=== PATIENT | male | born 1960 | race Caucasian/White ===

== ENCOUNTER 2018-12-24 08:56 | Inpatient (IN) ==
--- NOTE | 2018-11-28 08:37 | Anesthesiology Consultation ---
Date of Service November 28, 2018 Assessment & Plan (1) Encounter for pre-operative examination: Chart Review Chart Review: Acceptable Risk for Surgery and Patient seen in Pre Admission Testing Teaching & Discussion Instructed NPO after midnight before surgery, except medications with 15 cc of water. Medication instructions provided according to the PAT guidelines. History Surgery Operation Date: 12/23/18 07:45 Proposed Procedures p L5-S1 Removal of Hardware, L4-L5 Decompression and Fusion - Cyril Giles, Height/Weight Height: 6 ft Weight: 86.4 kg Allergies Allergy/AdvReac Type Severity Reaction Status Date / Time morphine Allergy Intermediate tachycardia, Verified 11/27/18 14:22 htn carbamazepine Allergy Mild unsure Verified 11/27/18 14:22 levofloxacin Allergy Mild torn Verified 11/27/18 14:22 ligament and tendon Penicillins Allergy Mild Hives Verified 11/27/18 14:22 Medications Home Medications Medication Instructions Recorded Confirmed Last Taken clonazepam 1 mg PO DAILY PRN 11/27/18 11/27/18 Unknown fexofenadine [Caty Allergy] 180 mg PO HS 11/27/18 11/27/18 Unknown gabapentin 300 mg PO TID 11/27/18 11/27/18 Unknown metformin 500 mg PO BID 11/27/18 11/27/18 Unknown simvastatin 40 mg PO PM 11/27/18 11/27/18 Unknown Past Medical History Medical History Chronic back pain Hyperlipidemia Prediabetes A1C 5.9% Past Surgical History Surgical History Fusion of spine fusion of lumbar l5-s1 History of discectomy lumbar Hx of repair of right rotator cuff Past Anesthesia History No Hx of Anesthesia Complications and No Family Hx of Anesthesia Complications History of PONV No Motion Sickness Screening History of Motion Sickness: No Social History Smoking Status: Never smoker Do You Dip or Chew Tobacco: No Hx Alcohol Use: Yes Alcohol type: beer, wine and hard liquor alcohol intake frequency: a few times a week Hx Substance Use: No substance use type: does not use Exercise / Class Metabolic Activity 1 > 8 Run/Swim/Ski/Tennis (Somewhat limited by back pain but does exercise regularly) Review of Systems Pt denies any recent chest pain, shortness of breath, palpitations, cough, fever or URI. Physical Exam Vital Signs BP: 149/93 (PCP has been monitoring) P: 76bpm SPO2: 97% RA T: 98.6 F R: 16 ENMT Mouth: + dental restorations (few crowns on molars); no chipped teeth and no loose teeth Thyromental Distance: > or= 3.5 Finger Breadths (4) Mallampati Class: I Neck normal visual inspection and + facial hair (short trimmed); neck extension not limited Respiratory normal respiratory effort Auscultation: lungs clear to auscultation bilaterally Cardiovascular Rate/Rhythm: regular rate and regular rhythm Heart Sounds: no murmur Vessels: no carotid bruit Extremities: no edema Testing Electrocardiogram Date: 11/28/18 Findings: + NSR @ (70) Rightward axis. No change from 2009 EKG. Chest X-Ray Date: 11/28/18 Findings: + NAD Laboratory Results 11/28/18 09:14 11/28/18 09:14 Blood Type O Positive 11/28/18 09:14 Antibody Screen NEGATIVE 11/28/18 09:14 PT 10.1 Seconds (9.0-12.0) 11/28/18 09:14 INR 1.0 (0.9-1.1) 11/28/18 09:14 APTT 25.4 Seconds (21.0-31.0) 11/28/18 09:14 Hemoglobin A1c 5.9 % (4.5-5.6) H 11/28/18 09:14 Urine Color Yellow 11/28/18 09:14 Urine Appearance Clear (Clear) 11/28/18 09:14 Urine pH 5.5 (4.5-7.5) 11/28/18 09:14 Ur Specific [place] 1.022 (1.000-1.030) 11/28/18 09:14 Urine Protein Negative (Negative) 11/28/18 09:14 Urine Glucose (UA) Negative (Negative) 11/28/18 09:14 Urine Ketones Negative (Negative) 11/28/18 09:14 Urine Nitrite Negative (Negative) 11/28/18 09:14 Ur Leukocyte Esterase Negative (Negative) 11/28/18 09:14
--- NOTE | 2018-11-28 08:39 | PAT Medication Instructions ---
Medication Instructions Date of Service November 28, 2018 Home Medications clonazepam 1 mg PO DAILY PRN fexofenadine [Caty Allergy] 180 mg PO HS gabapentin 300 mg PO TID metformin 500 mg PO BID simvastatin 40 mg PO PM DO NOT take the morning of surgery metformin 500 mg PO BID Take morning of surgery With a small sip of water, OTHERWISE NOTHING TO EAT OR DRINK AFTER MIDNIGHT: clonazepam 1 mg PO DAILY PRN (if needed) gabapentin 300 mg PO TID Take evening before surgery clonazepam 1 mg PO DAILY PRN (if needed) fexofenadine [Caty Allergy] 180 mg PO HS gabapentin 300 mg PO TID metformin 500 mg PO BID simvastatin 40 mg PO PM Other Notes If you have any questions please call us at [phone] or [phone] or [phone] or [phone]
--- NOTE | 2018-11-28 09:45 | XRay Report ---
XR chest Pre-admission PA/Lat CLINICAL HISTORY: 58 years-old Male presenting with preoperative assessment, asymptomatic. TECHNIQUE: PA and lateral views of the chest were obtained. COMPARISON: CT from 2009. FINDINGS: Cardiomediastinal silhouette normal. Lungs and pleural spaces clear. Chronic right AC joint widening. Upper abdomen normal. IMPRESSION: 1. No acute cardiopulmonary disease. Electronically signed by: Farhad Hilton M.D. 11/28/2018 9:44 AM
[2018-11-28 10:44] LABS: Appearance Urine Clear (Clear); Bilirubin Urine Negative (Negative); Blood Urine Negative (Negative); Color Urine Yellow; Glucose Urine UA Negative (Negative); Ketones Urine Negative (Negative); Leukocyte Esterase Urine Negative (Negative); Nitrite Urine Negative (Negative); Protein Urine Negative (Negative); Specific Gravity Urine 1.022 (1.000-1.030); Urobilinogen Urine Negative (Negative); pH Urine 5.5 (4.5-7.5)
[2018-11-28 10:46] LABS: BUN Creatinine Ratio 16.8 (10-20); Calcium 9.5 mg/dl (8.5-10.1); Creatinine Clr Calc Pharmacy 76.2 ml/min; Potassium 4.1 mmol/L (3.5-5.1)
[2018-11-28 10:50] LABS: Partial Thromboplastin Ratio 0.9; Partial Thromboplastin Time 25.4 Seconds (21.0-31.0); Prothrombin Time 10.1 Seconds (9.0-12.0)
[2018-11-28 10:53] LABS: Basophils # (auto) 0.03 K/uL (0-0.2); Basophils % (auto) 0.6 %; Hemoglobin 16.1 g/dL (14.0-18.0); Immature Granulocytes # (auto) 0.02 K/uL (0.00-0.02); Immature Granulocytes % (auto) 0.4 %; Lymphocytes % (auto) 40.2 %; Mean Corpuscular Hgb Conc 33.5 g/dL (32-36); Mean Platelet Volume 9.7 fL (7.4-10.4); Monocytes # (auto) 0.45 K/uL (0.11-0.59); Neutrophils # (auto) 2.28 K/uL (1.4-6.5); Neutrophils % (auto) 45.8 %; Platelet Count 211 K/uL (130-400); RDW Coefficient of Variation 13.2 % (11.5-14.5); RDW Standard Deviation 44.7 fL (36.4-46.3); Red Blood Count 5.16 M/uL (4.7-6.1); White Blood Count 4.98 K/uL (4.8-10.8)
[2018-11-28 11:16] LABS: Estimated Average Glucose 123 mg/dl; Hemoglobin A1C 5.9 % (4.5-5.6)
[~2018-12-24 08:56] MED LIST: ACETAMINOPHEN 500 MG TAB PO SCH; CLINDAMYCIN 600 MG/54 ML BAG IV SCH; CeleBREX 200 MG CAP PO SCH; GABAPENTIN 300 MG x 2 PO SCH; LR 15ML/HR IV SCH
--- OUTSIDE RECORDS SUMMARY | 2018-12-24 09:01 | External Medical Summary | Continuity of Care Document ---
:1960 Author Name Elvin Prajapati, Provider Address Unavailable Unavailable , Care Team Providers Name Role Phone Unruly Laboy M.D. 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 Start: 04-Dec-2019 9:00 Re quest Planned Observations Planned Goals not documented Results No Known Results Results not documented Encounters Appointment; Unruly Laboy M.D. 02-Dec-2018 11:10 Encounter Diagnosis: Problem not documented Appointment; Bradford Kemp M.D. 23-Jan-2017 14:30 Encounter Diagnosis: Problem not documented Appointment; Unruly Laboy M.D. 04-Dec-2019 9:00 Encounter Diagnosis: Problem not documented
[2018-12-24] MEDS ORDERED: CeleBREX 200 MG CAP ONE (09:31)
[2018-12-24] MEDS ORDERED: ACETAMINOPHEN 500 MG TAB ONE (09:32)
[2018-12-24] MEDS ORDERED: CLINDAMYCIN 600 MG/54 ML D5W IV ONE (09:32)
[2018-12-24] MEDS ORDERED: GABAPENTIN 300 MG CAP ONE (09:32)
[2018-12-24] MEDS ORDERED: fentaNYL citrate 100 MCG/2 ML VIAL ONE (13:42)
[2018-12-24] MEDS ORDERED: MIDAZOLAM HCL 1 MG/ML 2ML VIAL ONE (13:42)
--- NOTE | 2018-12-24 13:56 | History & Physical Bridge Note ---
Date of Service December 24, 2018 History & Physical Bridge Note I have examined the patient, reviewed the History & Physical and in the interval since the performance of the History & Physical I have noted the following changes of clinical significance: no changes noted
--- NOTE | 2018-12-24 13:57 | History & Physical Report ---
Date of Service December 24, 2018 Assessment & Plan (1) Spinal stenosis, lumbar region with neurogenic claudication: Removal of hardware L5-S1 L4-5 decompression and fusion Present on Admission?: Yes History of Present Illness Chief Complaint: Back and leg pain Primary Care Provider: Paco Sena MD This is a 58-year-old male well-known to me that presents with chronic persistent back and leg pain. After failing extensive course of nonoperative care he is here for surgical intervention. Allergies Allergy/AdvReac Type Severity Reaction Status Date / Time morphine Allergy Intermediate tachycardia, Verified 12/24/18 09:14 htn carbamazepine Allergy Mild unsure Verified 12/24/18 09:14 levofloxacin Allergy Mild torn Verified 12/24/18 09:14 ligament and tendon Penicillins Allergy Mild Hives Verified 12/24/18 09:14 Home Medications Home Medications Medication Instructions Recorded Confirmed Type clonazepam 1 mg PO DAILY PRN 11/27/18 12/24/18 History fexofenadine [Caty Allergy] 180 mg PO HS 11/27/18 12/24/18 History gabapentin 300 mg PO TID 11/27/18 12/24/18 History metformin 500 mg PO BID 11/27/18 12/24/18 History simvastatin 40 mg PO PM 11/27/18 12/24/18 History Past Med/Surg History Medical History Chronic back pain Hyperlipidemia Prediabetes A1C 5.9% Surgical History Fusion of spine fusion of lumbar l5-s1 History of discectomy lumbar Hx of repair of right rotator cuff Social History Preferred Language: [place] Communication Ability: Effective Exercise Teacher Required: No Beliefs That Will Affect Care: None Current Living Situation: Spouse Other Information That Helps Us Care for You: No Feels Safe at Home: Yes Safety Concerns: Feels Safe At This Time Smoking Status: Never smoker Do You Dip or Chew Tobacco: No Second Hand Exposure: No Tobacco Cessation Education Requested by Patient: No Hx Alcohol Use: Yes Alcohol type: beer, wine and hard liquor Hx Substance Use: No Physical Exam Vital Signs (Past 24 Hours): Last Vital Signs Temp 36.8 C 12/24/18 09:15 Pulse 84 12/24/18 09:15 Resp 18 12/24/18 09:15 BP 154/96 H 12/24/18 09:15 Pulse Ox 99 12/24/18 09:15 Physical Exam: Patient is neurologically intact though uncomfortable.
[2018-12-24] MEDS ORDERED: BACITRACIN INJ 50,000 UNIT VIAL ONE (14:08)
[2018-12-24] MEDS ORDERED: BUPIVACAINE/EPINEPHRINE 0.5% MPF 1:200,000 30 ML VIAL ONE (14:08)
[2018-12-24] MEDS ORDERED: SODIUM CHLORIDE 0.9% 500 ML BAG IV ONE (14:13)
[2018-12-24] MEDS ORDERED: ATROPINE SULFATE 0.1 MG/ML 10ML SYR IV PRN (14:20)
[2018-12-24] MEDS ORDERED: HYDROmorphone INJ 1 MG/ML SYRINGE IV PRN (14:20)
[2018-12-24] MEDS ORDERED: ONDANSETRON INJ 2 MG/ML 2 ML VIAL IV PRN ×2 (14:20→17:50)
[2018-12-24] MEDS ORDERED: HYDROmorphone INJ 2 MG/ML SYR/VIAL ONE (14:57)
[2018-12-24] MEDS ORDERED: ONDANSETRON INJ 2 MG/ML 2 ML VIAL ONE (15:00)
[2018-12-24] MEDS ORDERED: LARYING-O-JET KIT (LTA) ONE (15:00)
[2018-12-24] MEDS ORDERED: ROCURONIUM BROMIDE 10 MG/ML 5 ML VIAL ONE (15:00)
[2018-12-24] MEDS ORDERED: PROPOFOL IV EMULSION 10 MG/ML 20 ML VIAL IV ONE (15:00)
[2018-12-24] MEDS ORDERED: DEXAMETHASONE SOD INJ 4 MG/ML VIAL ONE (15:00)
[2018-12-24] MEDS ORDERED: PHENYLEPHRINE 100MCG/ML 5ML SYR ONE (15:00)
[2018-12-24] MEDS ORDERED: GLYCOPYRROLATE 0.2 MG/ML VIAL ONE (15:00)
[2018-12-24] MEDS ORDERED: NEOSTIGMINE METHYLSULFATE 1 MG/ML 10ML VIAL ONE (15:00)
[2018-12-24] MEDS ORDERED: LIDOCAINE HCL 2% 2 ML VIAL/AMP(20MG/ML) INFIL ONE (15:00)
[2018-12-24] MEDS ORDERED: FLOSEAL HEMOSTATIC MATRIX 10ML TOP ONE (15:29)
[2018-12-24] MEDS ORDERED: ePHEDrine sulfate 50 MG/ML SYR ONE (15:32)
--- NOTE | 2018-12-24 16:31 | Operative Report ---
Post Operative Report Pre & Post Diagnosis Operation Date: 12/24/18 10:45 Pre-Op Diagnosis: Lumbar spinal stenosis with neurogenic claudication Post-Op Diagnosis: Same Procedure Operation Date: 12/24/18 10:45 Actual Procedures #1 removal of posterior instrumentation L5-S1. #2 exploration of fusion L5-S1 per #3 lumbar decompression bilateral medial facetectomies foraminotomies L3-4 L4-5 per #4 posterior spinal fusion L4-5 per #5 placement posterior instrumentation L4-5 using globus rods and screws per #6 interbody fusion L4-5 per #7 placement of peek cage 13 x 26 mm L4-5 per #8 placement of local autograft in the posterior lateral gutters per #9 placement of infuse collagen sponge and master graft in the posterior lateral gutters and ostial amp in the interbody space. Surgeon Cyril Giles, Rn Transplant Chanda Garrido Estimated Blood Loss 150 Findings Consistent with Post-Op Diagnosis Specimens None Indications To the presents with worsening back and bilateral leg pain. After failing extensive course of nonoperative care like to undergo the above-mentioned procedure. Description of Procedure Patient was met with identified and informed consent obtained. He was then taken to the operative suite underwent ablation placed in prone position Kt table Teodoro frame. All bony prominences well-padded eyes inspected to ensure no external pressure placed upon the peer at this point the lumbar spine is prepped and draped in normal sterile fashion. Sharp dissection with the assistance of Bovie cautery was performed down to and exposing the lamina transverse processes of L4 and instrumentation at L5-S1 bilaterally. I then proceed remove the hardware bilaterally explore the fusion mass noting to be intact. An informed complete laminectomy of L4 partial laminectomy of L3 performed bilateral medial facetectomies and foraminotomies addressing severe stenosis. Pedicle screws were then placed in L4 and L5 bilaterally with assistance of fluoroscopy and by way of a transforaminal approach on the right complete discectomy was performed in pledget created to subcortical bleeding harman ne and a 13 x 26 mm peek cage filled with ostium bone graft tapped into position. The rods and then compressed locked into final position bilaterally. The transverse processes of L4 4 and L5 bur to subcortical bleeding bone. Infuse collagen sponge mass graft local autograft placed in the posterior lateral gutters. 15 round ANIL drain inserted. The incision was then closed with 1 Vicryl in the fascia 2-0 Vicryl subcutaneously and 4 Monocryl for final skin closure. Steri-Strip sterile dressings placed. Patient will continue to PACU stable disc. Please note Chanda Garrido present at the entire procedure involved in patient positioning complex portions of the surgery and final skin closure. Lastly spinal cord monitoring monitoring was utilized throughout the procedure and no changes were noted. I attest to the content of the Intraoperative Record and any orders documented therein. Any exceptions are noted below.
--- NOTE | 2018-12-24 16:45 | Fluoroscopy Report ---
FL lumbar spine 2-3V CLINICAL HISTORY: L5-S1 HARDWARE REMOVAL AND L4-L5 DECOMPRESSION AND FUSION COMPARISON STUDY: None. FLUOROSCOPY TIME: 7 seconds. FLUOROSCOPIC IMAGES: 2 FINDINGS: These images demonstrate an L4-L5 discectomy with interbody spacer placement. There is a po sterior decompression with bilateral pedicle screws at the L4 and L5 levels. A previous L5-S1 discect eva is noted. IMPRESSION: Fluoroscopic images demonstrating L4-L5 discectomy, posterior decompression and bilatera l pedicle screw fusion. Electronically signed by: Leander Thomas M.D. 12/24/2018 4:43 PM
--- NOTE | 2018-12-24 17:12 | Anesthesiology Progress Note ---
Date of Service December 24, 2018 Anesthesia Post Procedure Vital Signs Vital Signs: Temp Pulse Pulse Resp BP BP Pulse Ox 12/24/18 17:05 84 13 135/73 100 12/24/18 17:00 80 20 122/83 100 12/24/18 16:58 36.6 C 12/24/18 16:56 83 12 136/68 100 12/24/18 16:46 36.3 C L 92 H 14 131/65 100 12/24/18 16:45 84 13 131/65 100 12/24/18 09:15 36.8 C 84 18 154/96 H 99 Transfer of Care Handoff Completed per policy Notes Mental Status: alert / awake / arousable Patient Amnestic to Procedure: Yes Nausea / Vomiting: adequately controlled Pain: adequately controlled Airway Patency, RR, SpO2: stable & adequate BP & HR: stable & adequate Hydration State: stable & adequate Anesthetic Complications: no major complications apparent
[2018-12-24] MEDS ORDERED: FAMOTIDINE 20 MG TAB PO PRN (17:50)
[2018-12-24] MEDS ORDERED: LORazepam 0.5 MG/1 ML VIAL IV PRN (17:50)
[2018-12-24] MEDS ORDERED: TRAMADOL HCL 50 MG TABLET PO PRN (17:50)
[2018-12-24] MEDS ORDERED: DO NOT ADMINISTER FLU VACCINE PRN (17:50)
[2018-12-24] MEDS ORDERED: MAGNESIUM HYDROXIDE SUSP 30 ML UDC PO PRN (17:50)
[2018-12-24] MEDS ORDERED: PROMETHAZINE HCL 12.5 MG in SODIUM CHLORIDE 0.9% 50 ML IV PRN (17:50)
[2018-12-24] MEDS ORDERED: ONDANSETRON 4 MG TAB PO PRN (17:50)
[2018-12-24] MEDS ORDERED: ACETAMINOPHEN 1,000 MG/100 ML VIAL IV PRN (17:50)
[2018-12-24] MEDS ORDERED: BISACODYL 10 MG SUPP PR PRN (17:50)
[2018-12-24] MEDS ORDERED: METOCLOPRAMIDE HCL INJ 5 MG/ML 2 ML VIAL IV PRN (17:50)
[2018-12-24] MEDS ORDERED: DO NOT ADMINISTER PNEUMOCOCCAL VACCINE PRN (17:50)
[2018-12-24] MEDS ORDERED: LORazepam 0.5 MG TAB PO PRN (17:50)
[2018-12-24] MEDS ORDERED: ALUMINUM/MAGNESIUM SUSP 30 ML UDC PO PRN (17:50)
[2018-12-24] MEDS ORDERED: HYDROmorphone INJ 0.5 MG/0.5 ML SYR IV PRN (17:50)
[2018-12-24] MEDS ORDERED: SOD PHOSPHATE/SOD BIPHOSPHATE ENEMA 132 ML BTL PR PRN (17:50)
[2018-12-24] MEDS: KETOROLAC 30 MG/ML VIAL IV SCH ×2 (19:06→23:34)
[2018-12-24] MEDS: LACTATED RINGER'S 1,000 ML IV SCH (19:41)
[2018-12-24] MEDS: FEXOFENADINE HCL 180 MG TAB PO SCH (20:16)
[2018-12-24] MEDS: DOCUSATE SODIUM/SENNA 50/8.6MG TAB PO SCH (20:16)
[2018-12-24] MEDS: SIMVASTATIN 40 MG TAB PO SCH (20:16)
[2018-12-24] MEDS: GABAPENTIN 300 MG CAP PO SCH (20:16)
[2018-12-24] MEDS: CLINDAMYCIN 600 MG in DEXTROSE 5% 50 ML IV SCH (21:48)
[2018-12-25] MEDS: LACTATED RINGER'S 1,000 ML IV SCH (03:09)
[2018-12-25] MEDS: POLYETHYLENE (MIRALAX) 17 GM PACK PO SCH ×3 (05:36→17:29)
[2018-12-25] MEDS: KETOROLAC 30 MG/ML VIAL IV SCH ×2 (05:36→11:42)
[2018-12-25] MEDS: CLINDAMYCIN 600 MG in DEXTROSE 5% 50 ML IV SCH (05:37)
[2018-12-25 06:43] LABS: Basophils # (auto) 0.01 K/uL (0-0.2); Basophils % (auto) 0.1 %; Hematocrit (blood only) 38.4 % (42-52); Hemoglobin 13.3 g/dL (14.0-18.0); Immature Granulocytes # (auto) 0.04 K/uL (0.00-0.02); Immature Granulocytes % (auto) 0.3 %; Lymphocytes # (auto) 1.16 K/uL (1.2-3.4); Lymphocytes % (auto) 9.7 %; Mean Corpuscular Hgb Conc 34.6 g/dL (32-36); Mean Corpuscular Volume 88.7 fL (80-100); Mean Platelet Volume 9.3 fL (7.4-10.4); Monocytes # (auto) 1.16 K/uL (0.11-0.59); Monocytes % (auto) 9.7 %; Neutrophils # (auto) 9.62 K/uL (1.4-6.5); Neutrophils % (auto) 80.2 %; Platelet Count 188 K/uL (130-400); RDW Coefficient of Variation 12.9 % (11.5-14.5); RDW Standard Deviation 41.8 fL (36.4-46.3); Red Blood Count 4.33 M/uL (4.7-6.1); White Blood Count 11.99 K/uL (4.8-10.8)
[2018-12-25 07:07] LABS: BUN Creatinine Ratio 13.8 (10-20); Calcium 8.6 mg/dl (8.5-10.1); Creatinine Clr Calc Pharmacy 77.5 ml/min; Est GFR (African American) 81.7; Est GFR (Non-African American) 70.5
[2018-12-25] MEDS: GABAPENTIN 300 MG CAP PO SCH ×3 (08:52→21:19)
--- NOTE | 2018-12-25 09:45 | Anesthesiology Progress Note ---
Date of Service December 25, 2018 Anesthesia Post Procedure Vital Signs Vital Signs: Temp Pulse Pulse Pulse Resp BP BP 12/25/18 07:39 36.6 C 97 H 20 128/83 12/25/18 02:42 36.5 C 95 H 16 119/77 12/24/18 22:56 36.7 C 96 H 18 132/81 12/24/18 21:07 93 H 12/24/18 21:03 92 H 17 155/86 H 12/24/18 20:39 36.7 C 98 H 16 159/81 H 12/24/18 19:43 36.7 C 108 H 20 12/24/18 18:43 36.6 C 101 H 20 156/88 H 12/24/18 18:36 36.7 C 103 H 20 12/24/18 17:41 36.5 C 92 H 16 12/24/18 17:20 36.4 C L 89 17 138/64 12/24/18 17:16 75 15 135/71 12/24/18 17:10 73 14 122/85 12/24/18 17:05 84 13 135/73 12/24/18 17:00 80 20 122/83 12/24/18 16:58 36.6 C 12/24/18 16:56 83 12 136/68 12/24/18 16:46 36.3 C L 92 H 14 12/24/18 16:45 84 13 131/65 BP Pulse Ox 12/25/18 07:39 98 12/25/18 02:42 97 12/24/18 22:56 96 12/24/18 21:07 12/24/18 21:03 96 12/24/18 20:39 96 12/24/18 19:43 151/88 H 95 12/24/18 18:43 164/92 H 94 12/24/18 18:36 158/75 H 98 12/24/18 17:41 137/79 93 12/24/18 17:20 100 12/24/18 17:16 100 12/24/18 17:10 100 12/24/18 17:05 100 12/24/18 17:00 100 12/24/18 16:58 12/24/18 16:56 100 12/24/18 16:46 131/65 100 12/24/18 16:45 100 Pain Intensity Medial Back: Pain Intensity: 3 Notes Mental Status: alert / awake / arousable and participated in evaluation Patient Amnestic to Procedure: Yes Nausea / Vomiting: adequately controlled Pain: adequately controlled Airway Patency, RR, SpO2: stable & adequate BP & HR: stable & adequate Hydration State: stable & adequate Anesthetic Complications: no major complications apparent and Pt Satisfied with anesthetic care
--- NOTE | 2018-12-25 14:21 | Orthopedic Progress Note ---
Date of Service December 25, 2018 Assessment & Plan (1) Spinal stenosis, lumbar region with neurogenic claudication: This time we will continue physical therapy advance his bowel regimen anticipate discharge home in the next few days. Present on Admission?: Yes Subjective Back pain controlled leg symptoms markedly improved. Physical Exam Physical Exam: Patient is in the chair at the bedside. Is good strength testing. Results & Data Vital Signs (Past 12 Hours) Vital Signs Temp Pulse Pulse Resp BP Pulse Ox 12/25/18 13:30 100 12/25/18 10:39 36.8 C 84 20 135/79 100 12/25/18 07:39 36.6 C 97 H 20 128/83 98 12/25/18 02:42 36.5 C 95 H 16 119/77 97
[2018-12-25] MEDS: ACETAMINOPHEN 500 MG TAB PO PRN (19:31)
[2018-12-25] MEDS: SIMVASTATIN 40 MG TAB PO SCH (21:19)
[2018-12-25] MEDS: OXYCODONE HCL IR 5 MG TAB (IMMEDIATE RELEASE) PO PRN (21:19)
[2018-12-25] MEDS: DOCUSATE SODIUM/SENNA 50/8.6MG TAB PO SCH (21:19)
[2018-12-25] MEDS: FEXOFENADINE HCL 180 MG TAB PO SCH (21:20)
[2018-12-26] MEDS: OXYCODONE HCL IR 5 MG TAB (IMMEDIATE RELEASE) PO PRN ×3 (03:27→07:57)
[2018-12-26] MEDS: POLYETHYLENE (MIRALAX) 17 GM PACK PO SCH (03:52)
[2018-12-26] MEDS: GABAPENTIN 300 MG CAP PO SCH ×3 (07:58→20:04)
--- NOTE | 2018-12-26 08:22 | Orthopedic Progress Note ---
Date of Service December 26, 2018 Assessment & Plan (1) Spinal stenosis, lumbar region with neurogenic claudication: Plan to discharge home today. Present on Admission?: Yes Subjective Back pain is controlled leg symptoms markedly improved. Physical Exam Physical Exam: Patient is excellent strength testing appears comfortable. Results & Data Vital Signs (Past 12 Hours) Vital Signs Temp Pulse Pulse Resp BP Pulse Ox 12/26/18 07:31 36.8 C 90 20 136/76 98 12/25/18 23:00 36.6 C 69 19 147/75 H 97
--- NOTE | 2018-12-26 08:23 | Discharge Summary ---
Date of Service December 26, 2018 Admission HPI Per Admitting Provider This is a 58-year-old male well-known to me that presents with chronic persistent back and leg pain. After failing extensive course of nonoperative care he is here for surgical intervention. Principal Diagnosis Lumbar spinal stenosis Discharge Data Allergies Allergy/AdvReac Type Severity Reaction Status Date / Time morphine Allergy Intermediate tachycardia, Verified 12/24/18 09:14 htn carbamazepine Allergy Mild unsure Verified 12/24/18 09:14 levofloxacin Allergy Mild torn Verified 12/24/18 09:14 ligament and tendon Penicillins Allergy Mild Hives Verified 12/24/18 09:14 Consultations 12/24/18 17:50 Consult Case Management - Discharge Planning Routine Procedures Performed Operation Date: 12/24/18 10:45 Actual Procedures p L5-S1 Removal of Hardware, L4-L5 Decompression and Fusion, Spinal Cord Monitoring(Not Applicable) - Cyril Giles DO Ordered Studies 12/24/18 13:00 FL fluoroscopy <1hr Routine FL lumbar spine 2-3V Routine Hospital Course (1) Spinal stenosis, lumbar region with neurogenic claudication: Patient underwent lumbar depression fusion tolerated as well as taken to orthopedic for postoperative postop day 1 leg pain was markedly improved ambulate well. Progressive postop day #2. ANIL drain decreasing probably. Subsequent discharge home. Discharge orders and instructions can be found chart for further review. Total Time Total Time Spent Total Time Spent (In Minutes): 20 minutes Discharge Plan Discharge Items Patient Disposition: Home - Self-Care Reason For Visit: Lumbar Spine Pain Discharge Diagnosis: lumbar stenosis Discharge Goals: Improve function Activity: Per 'Additional Instructions' section Non-emergency contact: Primary Care Provider Call non-emergency contact if: you have any medication questions Follow-up/Referrals: Paco Sena MD [Primary Care Provider] - Diet: Regular Addtl Provider Instructions: ACTIVITY RECOMMENDATIONS: SELF CARE INSTRUCTIONS AFTER THORACIC/LUMBAR FUSIONS 1. You may walk to your tolerance. It is good exercise for your legs and back. Expect some back and intermittent leg aches and pains. 2. You may perform "counter-top" level activities (make a sandwich, neto with a project, etc.). 3. No bending or lifting of more than 10 pounds or back twisting of any nature (roll like a log when turning in bed). 4. You may ride in a car for 20-30 minutes at a time. No driving until after your first visit with your doctor. 5. Frequent changes of position and restricting sitting to 30 minutes at a time will help limit the amount of back spasms and stiffness you may experience. 6. You may discontinue the use of ambulatory aids (cane, crutches, etc.) once your strength and confidence allow. 7. You may nuclear fuels research engineer the shower and let water strike your incision when you arrive home at least once daily. Do not take a tub bath, sit in a hot tub or go into a swimming pool until after your first recheck in the office. SPECIAL CARE INSTRUCTIONS: VERY IMPORTANT TO READ AND REVIEW A. Your surgical incision has been closed with a cosmetic suture under the skin that will dissolve in about 6 weeks. In 14 days, you can use a pair of clean scissors and cut the suture that is left outside of the skin at the ends of your incision. 1. The small skin tapes can be removed 7 days after surgery if they have not fallen off by that point. 2. You may keep the wound open to air as much as possible to promote healing after post-op day number 5 unless told otherwise by your doctor. 3. If you think the wound looks like it is becoming infected (redness or worsening drainage) and/or you are experiencing fever, chill or worsening back pain and muscle spasms, contact the office so that we may evaluate you as soon as possible. B. Complications are uncommon, but please contact us if you have any signs or symptoms of: 1. wound infection (fever higher than 102.5 degrees F, redness, separation of wound, drainage, or increasing pain from the incision) 2. blood clots in legs (pain, swelling, redness and warmth in legs) 3. urinary tract infection (fever higher than 102.5 degrees F, burning upon urination or increased frequency of urination) 4. nerve problems (inability to walk on your toes or heels, numbness, loss of bowel or bladder control) 5. any other symptoms that concern you C. Please call the office at if you have any concerns or questions about your operation or recovery. D. No smoking! Smoking drastically decreases the chance of a solid fusion. E. Do not take any anti-inflammatory medications (Indocin, Advil, Motrin, Aspirin, Naprosyn, etc.) as these may inhibit the chance of a solid fusion. Tylenol is okay to take for pain. MANAGING PAIN AFTER SPINAL SURGERY 1. Narcotic medication is intended for short-term use and will be provided for surgical pain. Surgical pain usually lasts for a period of 4-6 weeks. Narcotic medication includes Percocet, Vicodin, Darvocet, Tylenol #3 or Lortab. 2. Longer-term pain is more appropriately treated with non-narcotic medication such as Tylenol ES. 3. Muscle spasm is not appropriately treated with narcotics. Muscle relaxers such as Soma, Flexeril or Skelaxin can be used along with Tylenol ES. 4. Remember that we all live with some "aches and pains". This is not unusual or uncommon after an injury or as we get older. a. Back pain is expected and may include muscle spasms for 4 to 6 weeks after surgery. The pain should gradually improve. If the pain worsens for no apparent reason, please contact the office. b. Intermittent leg pain may also be experienced and should not be concerned about unless it worsens for no apparent reason. If so, please contact the office. 5. We will provide appropriate medication within the normal guidelines of their prescribed use. We will also be very cautious and aware of potential abuse and extended duration of patients' medication needs. a. Pain medications are for your comfort and to assist with sleep and rest so that the tissue can heal. They are not provided in order to return to normal activity and should not be used through the day. To do so or worsening pain at night can result from ongoing tissue damage and development of tolerance to the prescribed medicine. 6. Please allow 2-3 days to process refills. Prescriptions will not be mailed but must be picked up at the office. FOLLOW UP VISIT: Keep your scheduled follow-up appointment. Any questions, please call the office at . Prescriptions: New tramadol 50 mg Tablet 50 mg PO Q4H PRN (Reason: Pain, Moderate) Qty: 30 RF: 0 oxycodone 5 mg Tablet 5 mg PO Q4H PRN (Reason: Pain, Severe) Qty: 30 RF: 0 Continued clonazepam 1 mg Tablet 1 mg PO DAILY PRN (Reason: sleep ) RF: 0 fexofenadine [Caty Allergy] 180 mg Tablet 180 mg PO HS RF: 0 simvastatin 40 mg Tablet 40 mg PO PM RF: 0 gabapentin 300 mg Capsule 300 mg PO TID RF: 0 metformin 500 mg Tablet,Er Michael.Retention 24 Hr 500 mg PO BID RF: 0 Stand-Alone Forms: On License Of [facility] Discharge Orders: Discharge Order (Routine); Ordered 12/26/18 Ordered By: Cyril Giles Admission Data Admit Date/Time: 12/24/18 16:35 Attending Provider: Cyril Giles Admit Provider: Cyril Giles Primary Care Provider: Paco Sena Service: Surgical Services
[2018-12-26] MEDS ORDERED: SODIUM CHLORIDE 0.9% 1000ML 500 ML IV ONE (08:34)
[2018-12-26 09:01] LABS: Hematocrit (blood only) 39.5 % (42-52); Hemoglobin 13.2 g/dL (14.0-18.0); Mean Corpuscular Volume 91.6 fL (80-100); Mean Platelet Volume 9.6 fL (7.4-10.4); Platelet Count 162 K/uL (130-400); RDW Coefficient of Variation 13.3 % (11.5-14.5); RDW Standard Deviation 44.2 fL (36.4-46.3); Red Blood Count 4.31 M/uL (4.7-6.1); White Blood Count 9.03 K/uL (4.8-10.8)
[2018-12-26 09:18] LABS: BUN Creatinine Ratio 12.9 (10-20); Blood Urea Nitrogen 15 mg/dl (7-18); Calcium 8.2 mg/dl (8.5-10.1); Carbon Dioxide 27 mmol/L (21-32); Chloride 107 mmol/L (98-107); Creatinine Clr Calc Pharmacy 77.5 ml/min; Est GFR (African American) 81.7; Est GFR (Non-African American) 70.5; Glucose 131 mg/dl (70-99); Potassium 3.8 mmol/L (3.5-5.1); Sodium 139 mmol/L (136-145)
[2018-12-26 09:22] LABS: Troponin I < 0.015 ng/ml (0-0.045)
[2018-12-26 09:23] LABS: Mean Corpuscular Hgb Conc 33.4 g/dL (32-36)
--- NOTE | 2018-12-26 09:31 | Progress Note ---
Date of Service December 26, 2018 Responded to code jorge. History obtained from nurse and patient who was alert and responsive at time of my arrival. Relatively healthy male patient s/p back surgery on 12/24/[address] Giles. Patient had 10mg oxycodone at 8:00am. Had gone to the bathroom to wash himself. Shortly upon completely this, he began to feel faint and felt his vision "inocencio out." He tried to make his way back to the room, but was found collapsed face down on the ground by culinary staff, who called for help. Based on times, patient estimates LOC of ~5 min. Patient denies preceding CP, palpitations, dyspnea, headaches, flushing, diaphoresis. He notes he has had mild dizziness with oxycodone previously as well. Initial BSG 99, and SBP 96 Staff helped patient back onto bed and cardiac monitoring initiated. Patient initially with ongoing dizziness improved upon laying flat. Also notes right shoulder is sore possibly from his landing and ongoing back pain from surgery. Otherwise denies headaches, vision change, CP, palpitations, dyspnea, pleurisy, flushing, diaphoresis, abdominal pain, asymmetric extremity weakness, numbness/tingling. Exam: Vitals: HR 86, repeat SBP improved to 108, O2 Sat 95% on RA Gen: WD/WN, no apparent distress, lying comfortably in bed, laceration with some bleeding on right lateral brow Eyes: swelling apparent on right supra orbital region, no conjunctival abnormality noted ENT: hearing grossly normal, pharynx normal, mucous membranes tacky Neck: supple, no adenopathy, trachea midline Resp: chest non-tender, lungs clear, normal breath sounds, no respiratory distress, no accessory muscle use Cardio: regular rate, rhythm, no murmur, normal peripheral pulses Abdo: normal bowel sounds, non tender, soft, no organomegaly Extremities: normal inspection, no calf tenderness, normal capillary refill, no pedal edema, normal range of motion of shoulder with no focal point of pain,. Neuro/Psych: alert, oriented x 3, school of nursing director II-XII nml as tested, no gross motor/sensory deficits - hand publicity expert strength and hip flexors 5/5 bilaterally, normal mood/affect Skin: normal color, warm/dry, no rash, 1cm superficial laceration over right lateral brow, bleeding ceased Management: - Chart reviewed - Cardiac monitoring - no abnormalities noted - EKG, 500cc NSS fluid bolus, and CBC, BMP, troponin, facial XR ordered. No need for additional respiratory support. EKG - NSR IVF improved SBP to 146, also with symptom improvement for patient Labs and imaging ordered to rule out sx secondary to dropping Hb, electrolyte disturbance, ACS, and orbital fracture - Laceration cleaned and ice compress applied. No suturing required, recommend applying steri-strip. - Nurse call to inform Dr. Giles. - Surgical team to follow up on labs and imaging, and also adjust pain management regimen as appropriate. Resident Activity Tracking Resident Involvement: Resident Care Provided Care Provided: Adult [facility] Medicine
--- NOTE | 2018-12-26 09:32 | XRay Report ---
XR facial bones <3V CLINICAL HISTORY: Pain status post trauma COMPARISON STUDY: No previous studies for comparison. FINDINGS: The study is somewhat limited from a positioning standpoint. No fractures are visualized on conventional radiographic imaging. There is no orbital emphysema. No air-fluid levels are visualized . There is a suspected bandage present over the inferior frontal skull region. IMPRESSION: No fractures identified on conventional radiographic imaging Electronically signed by: Grayson Forte M.D. 12/26/2018 9:31 AM
[2018-12-26] MEDS ORDERED: KETOROLAC 30 MG/ML VIAL IV PRN (11:15)
[2018-12-26] MEDS ORDERED: methylPREDNISolone 125 MG in SYRINGE 0 ML IV ONE (15:30)
--- NOTE | 2018-12-26 15:42 | Critical Care Progress Note ---
Date of Service December 26, 2018 Supervising Physician Co-Signing Physician Notes Dr. Cavanaugh was resident physician during care of patient. I separately evaluated patient for trivedi portions of the history and the exam. I was present during the critical portion of medical decision making, and I discussed the case with the resident. I generally agree with the findings and plan. I was advised of the patient's after the code purple. Resident summarized care as noted in the note I agree with the treatment plan and care was transitioned to the hospitalist team. Subjective Mr. Márquez was seen for a CODE PURPLE/RAPID RESPONSE shortly after 1500hrs this afternoon. He is a male patient s/p spinal fusion surgery with Dr. Luu on 12/24/28. He had an earlier code purple called in the morning after he experienced an unwitnessed syncopal event causing him to fall to the ground and strike his head. He had felt very dizzy On arrival the code purple was being run by Dr. Modi. Nic recieved a 500cc saline bolus, was found to be in sinus tachycardia on monitor, and has sustained a small laceration to his R forehead just above the orbit. He had recieved oxycodone 10mg at 8:00am and has had a history of poor opioid tolerance including tachycardia, rash, and lightheadedness. He reports he was getting up from the toilet when he suddenly became very dizzy and fell to the ground. For further documentation, see Dr. Modi's note on same day. Of note later in the day he developed urticarial wheels in addition to acute worsening of a fine red macular rash most prominent on his chest, forearms bilaterally, and upper back. He was given diphenhydramine x1 at ~1100hrs and experienced resolution of his urticaria. He wa snot having difficulty breathing. Around 1500hrs this afternoon he develped an increase in tachycardia, a feeling of palpitations, slight dizziness, and feeling of constricted breathing. A code purple was called with concern for allergic reaction. On arrival the patient laying in bed in a hostpial gown and was was alert, oriented, and responsive. history was obtained from the patient's nurse and the patient. He was not having difficulty breathing or shortness of breath. He denied chest pain and chest pressure, but endorsed a feeling of occasional palpitations. He had not been wheezing. He did not have a resurgence of urticarial wheels. Vitals: HR 130s, 147/91, RR ~22, SpO2 98% on room air. General: A&Ox3. Alert, laying comfortably in bed. Cooperative. Head: Small ~.5cm nonbleeding laceration present on R lateral eyebrow Eyes: Visual acuity grossly intact, EoM grossly intact, no scleral icterus, pupils equal and reactive to light bilaterally Lips/Mouth/Throat: No angioedema, no upper airway obstruction, to posterior pharyngeal erythema/swelling/exudate Neck: Supple, trachea midline Cardiac: Sinus tachycardia to 130, intermittent PVCs. No murmers, rubs, or gallops appreciated. Left radial pulse intact, cap refill brisk. Skin: Diffuse macular rash present most prominently on upper and lower ventral arms bilaterally, chest, and upper back. No urticaria. Skin warm, dry. Capillary refill brisk. PT pulses intact and symmetrical. Pulm: CTAB A&P. -wheezes, -rales, -rhonchi. Symmetrical chest rise. No increase work of breathing. No respiratory distress. Cardiac: RRR, -mrg. Radial pulses intact and symmetrical. Abdominal: Nontender, nondistended, soft. Management: He was treated with 125mg of methylprednisolone and a 500cc flush of saline. On monitor he was noted to be in sinus tachycardia to the 130s with intermittent PVCs. A full set of labs incluidng BMP, troponins, Mg, Phos, and CBC were ordered. EKG was ordered. He did not require ventilation/oxygen support. He was transferred to PCU tele for monitoring given his PVCs and palpitations. In consideration of his PVCs and earlier event, a TTE was ordered. Sign out was given to the medical [facility] hospitalist team. Review of Systems Review of Systems: As noted in HPI Results & Data Vital Signs (Past 12 Hours) Vital Signs Temp Pulse Resp BP Pulse Ox 12/26/18 07:31 36.8 C 90 20 136/76 98 Resident Activity Tracking Resident Involvement: Resident Care Provided Care Provided: Adult [facility] Medicine
--- NOTE | 2018-12-26 18:09 | Consultation ---
Date of Consultation December 26, 2018 Assessment & Plan (1) Syncope: (2) Allergic reaction caused by a drug: (3) Sinus tachycardia: (4) Palpitations: Symptoms likely a result of vasovagal reaction per history Symptoms improved with administration of IV fluid bolus He received diphenhydramine as well as IV methylprednisolone 125 mcg Small laceration of right orbit was clean and did not need repaired, facial x- ray was negative for fracture He was transferred to PCU for further telemetry monitoring Echocardiogram was performed and revealed normal left ventricular wall motion, hyperdynamic EF at 70% Symptoms likely as result of administration of oxycodone as patient has prior history of opioid intolerance We will withdrawal opioids at this time and recommend to continue with Toradol for pain management We will monitor closely on telemetry and for further adverse reactions If patient symptoms improve he can likely be discharged home (5) Forehead laceration: cleaned and intact no sutures needed (6) Spinal stenosis, lumbar region with neurogenic claudication: POD #2 lumbar decompression fusion L4-L5 with removal of hardware L5-S1 by Dr. Giles Had tolerated procedure well EBL was 150 mL Pain/wound per Ortho but would avoid all narcotics at this point if able Activity as directed by Ortho Plan for discharge in a.m. if patient improves off narcotics (7) Acute blood loss anemia: H/H 13.2 and 39.5 Preop H&H 16.1 and 48.0 (8) Hyperlipidemia: Continue statin (9) Prediabetes: Prior A1c 5.1 On metformin twice daily as outpatient Hold while inpatient (10) DVT prophylaxis: per ortho Disposition: likely discharge home tomorrow Follow up: PCP Patient was seen and examined in collaboration with Dr. Roman, please see addendum Starting 12/27/2018 patient will be under the care of Supervising Physician Co-Signing Physician Notes I have seen and examined the patient and have discussed the case with the provider above. I agree with the assessment and plan as stated. DO Abel History of Present Illness Requesting Physician: Monty Leyav PA-C Reason for Consultation: Tachycardia and syncopal episode. Attending Physician: Cyril Giles DO History of Present Illness Pt seen and examined ~4pm This is a 58 year old male who has a significant PMH of HLD, Pre-DM, Allergic Rhinitis, hx or prior lumbar surgery x 2 who presented to [facility] secondary to elective lumbar procedure by Dr. Giles. On 12/24/2018 patient underwent L5-S1 hardware removal with L4-5 decompression and fusion by Dr. Giles. He tolerated procedure well and was anticipating discharge home today. This morning a code jorge was called secondary to an unwitnessed syncopal episode in which he fell to the ground and struck his head. Patient states he got up moving his bowels and was walking back to bed when he was very lightheaded and dizzy, "I tried to get back to my bed fast because I knew I was going to go down and I hit my head." Unsure how long down. When found by staff he was noted to have rash on bilateral arms and chest urticaria. He also sustained small laceration to right forehead above the orbit. He had received oxycodone 10 mg at 8 AM which was approximately 20 minutes prior to event. He also had 5 mg of oxycodone at 3 AM and additional 5 mg at 5 AM. After syncopal episode patient received 500 cc saline bolus and was noted to be in sinus tachycardia on monitor. There is prior history of poor tolerance to opioids. In the past he develops hypertension and tachycardia in response to morphine. There is also question about a prior rash from oxycodone. In response to the rash patient did receive Benadryl at approximately 1100. Plan was to monitor and observe patient and possibly discharge home later this afternoon however, another Kenna patel was called approximately 1500 secondary to patient developing tachycardia, feeling of palpitations, slight dizziness and chest tightness. He noted this was approximately 1 hour after receiving Toradol. Patient was monitoring his heart rate on his android phone and she noted his heart rate to peak at 179. On monitor patient was noted to be in sinus tachycardia with heart rate in 130s and occasional PVCS. Given concern for additional allergic reaction kenna patel was called. He received methylprednisolone and 500 mL fluid bolus. He was transferred to PCU for further cardiac monitoring and labs and echocardiogram was ordered. Upon examining the patient he was overall feeling better but, "out of it." He can still feel his heart rate is elevated. Outside of his procedure he denies any recent illness, fever, chills, lightheadedness, chest pain, shortness of breath, [place], hemoptysis, nausea, vomiting, diarrhea, change in his bowel or urinary habits. Overall appetite is decreased from today's events. is at bedside. Allergies Allergy/AdvReac Type Severity Reaction Status Date / Time morphine Allergy Intermediate tachycardia, Verified 12/24/18 09:14 htn carbamazepine Allergy Mild unsure Verified 12/24/18 09:14 levofloxacin Allergy Mild torn Verified 12/24/18 09:14 ligament and tendon Penicillins Allergy Mild Hives Verified 12/24/18 09:14 oxycodone [From Roxicodone] Allergy Rash Verified 12/26/18 14:03 Home Medications Home Medications Medication Instructions Recorded Confirmed Type clonazepam 1 mg PO DAILY PRN 11/27/18 12/24/18 History fexofenadine [Caty Allergy] 180 mg PO HS 11/27/18 12/24/18 History gabapentin 300 mg PO TID 11/27/18 12/24/18 History metformin 500 mg PO BID 11/27/18 12/24/18 History simvastatin 40 mg PO PM 11/27/18 12/24/18 History oxycodone 5 mg PO Q4H PRN #30 tab 12/25/18 Rx tramadol 50 mg PO Q4H PRN #30 tab 12/25/18 Rx Patient History Medical History Hyperlipidemia Chronic back pain Prediabetes A1C 5.9% Surgical History Fusion of spine fusion of lumbar l5-s1 History of discectomy lumbar x 2 Hx of repair of right rotator cuff Social History Preferred Language: [place] Communication Ability: Effective Sagger Preparer Required: No Beliefs That Will Affect Care: None Current Living Situation: Spouse Other Information That Helps Us Care for You: No Feels Safe at Home: Yes Safety Concerns: Feels Safe At This Time Smoking Status: Never smoker Do You Dip or Chew Tobacco: No Second Hand Exposure: No Tobacco Cessation Education Requested by Patient: No Hx Alcohol Use: Yes Alcohol type: beer, wine and hard liquor Hx Substance Use: No Review of Systems Review of Systems: As noted per HPI, 10 systems reviewed and negative unless noted above. Physical Exam Physical Exam: Gen: WD/WN, M, NAD, sitting up in bed, pleasant, conversing easily Head: Normocephalic, Small lac 1cm above R lateral eyebrow, intact Eyes: Sclera normal, no conjunctival injection, PERRLA, EOMI ENT: Gross hearing intact, normal pharynx, mucous membranes moist Neck: supple, no adenopathy, No JVD, no bruit, Resp: Clear to auscultation b/l, no wheeze, rales, rhonchi. Normal insp/exp effort, no accessory muscle use CV: tachycardic rate, regular rhythm, no murmur, rub, gallop, or ectopy Abd: +BS x 4, soft, nontender, nondistended Musculoskeletal: moves extremities active rom x 4, strength intact, good beater dumper strength Extremities: No edema bilaterally, lumbar dressing cdi Skin: warm, moist, no rash, negative turgor, cap refill < 2sec Neuro: Alert and oriented x 3, speech normal, good mood/affect, cran nerve 2-12 intact grossly : deferred Results & Data Vital Signs (Past 12 Hours) Vital Signs Temp Pulse Resp BP Pulse Ox 12/26/18 07:31 36.8 C 90 20 136/76 98 Laboratory Results 12/26/18 12/26/18 12/26/18 Range/Units 15:10 08:49 08:49 WBC 9.03 (4.8-10.8) K/uL RBC 4.31 L (4.7-6.1) M/uL Hgb 13.2 L (14.0-18.0) g/dL Hct 39.5 L (42-52) % MCV 91.6 (80-100) fL MCH 30.6 (25-34) pg MCHC 33.4 (32-36) g/dL RDW Std Deviation 44.2 (36.4-46.3) fL RDW Coeff of Yunier 13.3 (11.5-14.5) % Plt Count 162 (130-400) K/uL MPV 9.6 (7.4-10.4) fL Sodium 139 (136-145) mmol/L Potassium 3.8 (3.5-5.1) mmol/L Chloride 107 (98-107) mmol/L Carbon Dioxide 27 (21-32) mmol/L Anion Gap 5.0 (3-11) BUN 15 (7-18) mg/dl Creatinine 1.14 (0.6-1.4) mg/dl Est Cr Clr Drug Dosing 77.5 ml/min Est GFR ( Amer) 81.7 Est GFR (Non-Af Amer) 70.5 BUN/Creatinine Ratio 12.9 (10-20) Glucose 131 H (70-99) mg/dl POC Glucose 124 H (70-99) Calcium 8.2 L (8.5-10.1) mg/dl Troponin I < 0.015 (0-0.045) ng/ml 12/26/18 Range/Units 08:25 WBC (4.8-10.8) K/uL RBC (4.7-6.1) M/uL Hgb (14.0-18.0) g/dL Hct (42-52) % MCV (80-100) fL MCH (25-34) pg MCHC (32-36) g/dL RDW Std Deviation (36.4-46.3) fL RDW Coeff of Yunier (11.5-14.5) % Plt Count (130-400) K/uL MPV (7.4-10.4) fL Sodium (136-145) mmol/L Potassium (3.5-5.1) mmol/L Chloride (98-107) mmol/L Carbon Dioxide (21-32) mmol/L Anion Gap (3-11) BUN (7-18) mg/dl Creatinine (0.6-1.4) mg/dl Est Cr Clr Drug Dosing ml/min Est GFR ( Amer) Est GFR (Non-Af Amer) BUN/Creatinine Ratio (10-20) Glucose (70-99) mg/dl POC Glucose 99 (70-99) Calcium (8.5-10.1) mg/dl Troponin I (0-0.045) ng/ml Diagnostic Findings Face Xray: IMPRESSION: No fractures identified on conventional radiographic imaging Medications Administered Acetaminophen (Tylenol) 1,000 mg PO Q8H PRN PRN Reason: MILD Pain Rating 1,2,3 Stop: 01/23/19 17:49 Last Admin: 12/25/18 19:31 Dose: 1,000 mg Documented by: [id number] Bisacodyl (Dulcolax) 10 mg ID DAILY PRN PRN Reason: Constipation Stop: 01/23/19 17:49 Last Admin: 12/25/18 21:20 Dose: 10 mg Documented by: [id number] Diphenhydramine HCl (Benadryl Capsule) 25 mg PO Q6H PRN PRN Reason: Allergic Rhinitis/Insomnia Stop: 01/23/19 17:49 Last Admin: 12/26/18 11:18 Dose: 25 mg Documented by: [id number] Fexofenadine HCl (Caty) 180 mg PO HS TAYO Stop: 01/23/19 20:59 Last Admin: 12/25/18 21:20 Dose: 180 mg Documented by: [id number] Admin: 12/24/18 20:16 Dose: 180 mg Documented by: [id number] Gabapentin (Neurontin) 300 mg PO TID TAYO Stop: 01/23/19 20:59 Last Admin: 12/26/18 13:47 Dose: 300 mg Documented by: [id number] Admin: 12/26/18 07:58 Dose: 300 mg Documented by: [id number] Admin: 12/25/18 21:19 Dose: 300 mg Documented by: [id number] Admin: 12/25/18 13:18 Dose: 300 mg Documented by: [id number] Admin: 12/25/18 08:52 Dose: 300 mg Documented by: [id number] Admin: 12/24/18 20:16 Dose: 300 mg Documented by: [id number] Lorazepam (Ativan) 0.5 mg in 1 mls @ 0.5 mls/min IV Q8H PRN PRN Reason: Sedation/Anxiety Stop: 01/23/19 17:49 Last Admin: 12/24/18 20:30 Dose: 0.5 mls/min Documented by: [id number] Ketorolac Tromethamine (Toradol) 30 mg IV Q6H PRN PRN Reason: Pain Stop: 12/31/18 11:14 Last Admin: 12/26/18 13:44 Dose: 30 mg Documented by: [id number] Senna/Docusate Sodium (Senokot S) 2 tab PO HS TAYO Stop: 01/23/19 20:59 Last Admin: 12/25/18 21:19 Dose: 2 tab Documented by: [id number] Admin: 12/24/18 20:16 Dose: 2 tab Documented by: [id number] Simvastatin (Zocor) 40 mg PO PM TAYO Stop: 01/23/19 20:59 Last Admin: 12/25/18 21:19 Dose: 40 mg Documented by: [id number] Admin: 12/24/18 20:16 Dose: 40 mg Documented by: [id number] Discontinued Medications Acetaminophen (Tylenol) 1,000 mg PO PREOP TAYO Stop: 12/23/18 18:00 Last Admin: 12/24/18 09:34 Dose: 1,000 mg Documented by: [id number] Acetaminophen (Tylenol) Confirm Administered Dose 1,000 mg .ROUTE .[facility] ONE Stop: 12/24/18 09:33 Last Admin: 12/24/18 09:36 Dose: Not Given Documented by: [id number] Bacitracin (Bacitracin) Confirm Administered Dose 50,000 units .ROUTE .[facility] ONE Stop: 12/24/18 14:09 Last Admin: 12/24/18 16:27 Dose: 50,000 units Documented by: [id number] Bupivacaine HCl/Epinephrine Bitart (Sensorcaine/Epinephrine 0.5% Mpf 1:200,000) Confirm Administered Dose 30 ml .ROUTE .[facility] ONE Stop: 12/24/18 14:09 Last Admin: 12/24/18 15:28 Dose: 20 ml Documented by: [id number] Celecoxib (Celebrex) 200 mg PO PREOP TAYO Stop: 12/23/18 18:00 Last Admin: 12/24/18 09:33 Dose: 200 mg Documented by: [id number] Celecoxib (Celebrex) Confirm Administered Dose 200 mg .ROUTE .[facility] ONE Stop: 12/24/18 09:32 Last Admin: 12/24/18 09:35 Dose: Not Given Documented by: [id number] Clindamycin Phosphate (Cleocin) Confirm Administered Dose 600 mg IV .[facility] ONE Stop: 12/24/18 09:33 Last Admin: 12/24/18 09:36 Dose: Not Given Documented by: [id number] Gabapentin (Neurontin) 600 mg PO PREOP TAYO Stop: 12/23/18 18:00 Last Admin: 12/24/18 09:33 Dose: 600 mg Documented by: [id number] Gabapentin (Neurontin) Confirm Administered Dose 600 mg .ROUTE .[facility] ONE Stop: 12/24/18 09:33 Last Admin: 12/24/18 09:36 Dose: Not Given Documented by: [id number] Clindamycin Phosphate (Cleocin) 600 mg in 54 mls @ 100 mls/hr IV PREOP TAYO Stop: 12/23/18 18:00 Last Infusion: 12/24/18 14:53 Dose: 0 mls/hr Documented by: [id number] Admin: 12/24/18 14:20 Dose: 100 mls/hr Documented by: [id number] Lactated Ringer's (Lr) 1,000 mls @ 15 mls/hr IV .Q24H [facility] Stop: 12/24/18 05:59 Last Infusion: 12/24/18 14:19 Dose: 0 mls/hr Documented by: [id number] Admin: 12/24/18 09:33 Dose: 15 mls/hr Documented by: [id number] Clindamycin Phosphate 600 mg/ (Dextrose) 54 mls @ 100 mls/hr IV Q8H [facility] Stop: 12/25/18 06:33 Last Infusion: 12/25/18 06:24 Dose: 0 mls/hr Documented by: [id number] Admin: 12/25/18 05:37 Dose: 100 mls/hr Documented by: [id number] Infusion: 12/24/18 22:21 Dose: 0 mls/hr Documented by: [id number] Admin: 12/24/18 21:48 Dose: 100 mls/hr Documented by: [id number] Lactated Ringer's (Lr) 1,000 mls @ 150 mls/hr IV .Q6H40M [facility] Stop: 01/23/19 17:49 Last Admin: 12/25/18 03:09 Dose: Not Given Documented by: [id number] Infusion: 12/25/18 02:48 Dose: 0 mls/hr Documented by: [id number] Admin: 12/24/18 19:41 Dose: 150 mls/hr Documented by: [id number] Sodium Chloride (Nss 1000ml) 500 mls @ 999 mls/hr IV .Q31M ONE Stop: 12/26/18 09:04 Last Admin: 12/26/18 11:03 Dose: Not Given Documented by: [id number] Methylprednisolone 125 mg/ (Syringe) 2 mls @ 1.5 mls/min IV TODAY@1530 ONE Stop: 12/26/18 15:31 Last Admin: 12/26/18 15:36 Dose: 1.5 mls/min Documented by: [id number] Ketorolac Tromethamine (Toradol) 30 mg IV Q6H [facility] Stop: 12/25/18 12:01 Last Admin: 12/25/18 11:42 Dose: 30 mg Documented by: [id number] Admin: 12/25/18 05:36 Dose: 30 mg Documented by: [id number] Admin: 12/24/18 23:34 Dose: 30 mg Documented by: [id number] Admin: 12/24/18 19:06 Dose: 30 mg Documented by: [id number] Miscellaneous (Floseal Hemostatic Matrix 10ml) 20 ml TOP ONCE ONE Stop: 12/24/18 15:30 Last Admin: 12/24/18 16:27 Dose: 16 ml Documented by: [id number] Oxycodone HCl (Roxicodone Immediate Rel) 5 - 10 mg PO Q4H PRN PRN Reason: Moderate-Severe Pain Stop: 01/07/19 17:49 Last Admin: 12/26/18 07:57 Dose: 10 mg Documented by: [id number] Admin: 12/26/18 04:09 Dose: 5 mg Documented by: [id number] Admin: 12/26/18 03:27 Dose: 5 mg Documented by: [id number] Admin: 12/25/18 21:19 Dose: 5 mg Documented by: [id number] Polyethylene Glycol (Miralax Powder Packet) 17 gm PO Q6 TAYO Stop: 01/24/19 05:59 Last Admin: 12/26/18 03:52 Dose: Not Given Documented by: [id number] Admin: 12/25/18 17:29 Dose: 17 gm Documented by: [id number] Admin: 12/25/18 08:52 Dose: 17 gm Documented by: [id number] Admin: 12/25/18 05:36 Dose: 17 gm Documented by: [id number] ECG Rate (beats per minute): 85 Rhythm: normal sinus
[2018-12-26] MEDS: DOCUSATE SODIUM/SENNA 50/8.6MG TAB PO SCH (20:03)
[2018-12-26] MEDS: ACETAMINOPHEN 500 MG TAB PO PRN (20:03)
[2018-12-26] MEDS: SIMVASTATIN 40 MG TAB PO SCH (20:04)
[2018-12-26] MEDS: FEXOFENADINE HCL 180 MG TAB PO SCH (20:04)
[2018-12-27] MEDS: clonazePAM 1 MG TAB PO PRN ×2 (01:26→21:59)
[2018-12-27] MEDS: GABAPENTIN 300 MG CAP PO SCH ×2 (08:48→09:25)
--- NOTE | 2018-12-27 12:19 | Hospitalist Progress Note ---
Date of Service December 27, 2018 Assessment & Plan (1) Syncope: (2) Allergic reaction caused by a drug: (3) Sinus tachycardia: (4) Palpitations: Syncopal Episode likely Vasovagal/Drug reaction-Oxycodone Also had similar problems with opioid use on prior hospitalization as per patient Symptoms resolved Received diphenhydramine/IV methylprednisolone 125 mcg and IV fluids Small laceration of right orbit facial x-ray was negative for fracture ECHO:Normal Telemetry: No Arrhythmias noted Avoid Opioids BP slightly elevated--likely situational due to pain Advise to monitor BP at home (5) Forehead laceration: Stable (6) Spinal stenosis, lumbar region with neurogenic claudication: POD #3 lumbar decompression fusion L4-L5 with removal of hardware L5-S1 by Dr. Giles EBL was 150 mL Activity/Pain/wound per Ortho avoid all narcotics as able (7) Acute blood loss anemia: Hb stable today Monitor (8) Hyperlipidemia: Continue statin (9) Prediabetes: Prior A1c 5.1 On metformin twice daily as outpatient Hold PO meds while inpatient (10) DVT prophylaxis: per ortho Disposition: As per Primary Team Follow up: PCP Subjective Patient is seen and examined at bedside Doing well today. Back pain at surgical site is controlled Denies any chest pain, shortness of breath, dizziness, nausea Offers no other complaints Telemetry monitoring: Normal sinus rhythm, no arrhythmia noted Blood pressure slightly elevated likely situational Review of Systems Review of Systems: All systems reviewed & are unremarkable except as noted in HPI & below Physical Exam Physical Exam: Physical Exam: Vitals signs as noted above General Appearance:Moderately built and nourished, no apparent distress Head: normocephalic, Atraumatic Eyes: normal inspection, EOMI Neck: supple, Trachea midline Respiratory/Chest: Normal breath sounds, CTA Cardiovascular: S1, S2, No murmur Abdomen/GI:Soft, Non tender, Bowel sounds present Back:Surgical site in dressing Extremities/Musculoskelatal:normal inspection, no edema Neurologic/Psych:AAOX3, grossly no focal neurological deficits Skin: normal color, warm Results & Data Vital Signs (Past 12 Hours) Vital Signs Temp Pulse Pulse Pulse Resp BP BP 12/27/18 11:31 36.8 C 93 H 20 173/83 H 12/27/18 07:25 94 H 12/27/18 07:03 36.8 C 93 H 18 147/87 H 12/27/18 03:18 36.5 C 98 H 19 144/86 H Pulse Ox 12/27/18 11:31 99 12/27/18 07:25 12/27/18 07:03 96 12/27/18 03:18 95
[2018-12-27] MEDS ORDERED: METOPROLOL TARTRATE 25 MG TAB PO SCH (12:45)
[2018-12-27] MEDS ORDERED: METOPROLOL TARTRATE 25 MG TAB PO STA (14:34)
--- NOTE | 2018-12-27 14:35 | Cardiology Consultation ---
Date of Consultation December 27, 2018 Assessment & Plan (1) Syncope: It appears that his syncopal episode was either vasovagal in etiology or related to allergic reaction as he was noted to have hives it was just receiving oxycodone. The patient has had significant tachycardia in the meantime. He has no suggestion of symptoms to suggest pulmonary embolism. No shortness of breath and although he had fleeting chest pain yesterday this is resolved. The patient describes that similar findings occurred after his surgery in 2009 with elevated heart rates then and intolerance of pain medications. At present he is in no distress, and his pain is well controlled. Proceed with a trial of low-dose metoprolol. He is also due for a PRN dose of Ativan which I think would be reasonable to administer as his blood pressure has remained elevated. (2) Sinus tachycardia: (3) Allergic reaction caused by a drug: History of Present Illness Attending Physician: Cyril Giles, DO History of Present Illness Nic Márquez is a 58 year old male seen in cardiology consultation [facility] the [facility] of sinus tachycardia, subjective palpitations, syncopal episode yesterday. Patient's primary care provider is Dr. Paco Sena. Patient has not previously followed with cardiology. Patient's past medical history is significant for impaired glucose tolerance for which she is on metformin and dyslipidemia for which he takes simvastatin. He denies past history of hypertension. He has had recurrent spine surgery in 2002, 2009, and again a few days ago. 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 He describes receiving morphine at that time with resultant elevated heart rate and elevated blood pressure. He recalls having a pulmonary embolism work-up and that was within normal limits. On 12/24/2018 the patient underwent removal of posterior instrumentation from L5- S1 with lumbar decompression. Yesterday 12/26/2018 he had been tentatively scheduled for discharge however he had developed an acute change in condition. A code purple been called before 9 AM after an unwitnessed syncopal event when he fell to the ground and struck his head. The patient had been in the bathroom for a bowel movement and walking back to his bed when he felt very lightheaded and dizzy he tried to get back to his bed fast because he knew he was going to pass out and he hit his head with resultant scalp laceration. CT of the brain was within normal limits. Staff had noted that he had a rash bilaterally on his arms and chest urticaria. He had received oxycodone at 8 AM and swells up 5 AM at 3 AM. After the syncopal event, he received a 500 normal saline bolus in sinus tachycardia was noted on the monitor. The patient had another code purple event however at 1500 yesterday developing tachycardia sensation of palpitations, and slight dizziness and transient chest tightness. This was approximately 1 hour after receiving Toradol. He was transferred to the telemetry unit in the meantime is been noted to have persistent sinus tachycardia. Currently sinus tachycardia in the range of 110 bpm is noted however his heart rate has been up to 152 even up to 170 bpm with minimal activity. Rare isolated PVCs are noted with no sustained arrhythmia otherwise. During my assessment the patient, his spouse is at the bedside. He was in [place] no distress and describes that his pain was well controlled having received acetaminophen. He had received metoprolol tartrate 12.5 mg orally about an hour before I interviewed him. Allergies Allergy/AdvReac Type Severity Reaction Status Date / Time morphine Allergy Intermediate tachycardia, Verified 12/24/18 09:14 htn carbamazepine Allergy Mild unsure Verified 12/24/18 09:14 levofloxacin Allergy Mild torn Verified 12/24/18 09:14 ligament and tendon Penicillins Allergy Mild Hives Verified 12/24/18 09:14 oxycodone [From Roxicodone] Allergy shortness Verified 12/27/18 11:37 of breath Home Medications Home Medications Medication Instructions Recorded Confirmed Type clonazepam 1 mg PO DAILY PRN 11/27/18 12/24/18 History fexofenadine [Caty Allergy] 180 mg PO HS 11/27/18 12/24/18 History gabapentin 300 mg PO HS 11/27/18 12/27/18 History metformin 500 mg PO BID 11/27/18 12/24/18 History simvastatin 40 mg PO PM 11/27/18 12/24/18 History tramadol 50 mg PO Q4H PRN #30 tab 12/25/18 Rx Patient History Medical History Hyperlipidemia Chronic back pain Prediabetes A1C 5.9% Surgical History Fusion of spine fusion of lumbar l5-s1 History of discectomy lumbar x 2 Hx of repair of right rotator cuff Social History Preferred Language: Citizen Of [place] Communication Ability: Effective Pipefitter Required: No Beliefs That Will Affect Care: None Current Living Situation: Spouse Other Information That Helps Us Care for You: No Feels Safe at Home: Yes Safety Concerns: Feels Safe At This Time Smoking Status: Never smoker Do You Dip or Chew Tobacco: No Second Hand Exposure: No Tobacco Cessation Education Requested by Patient: No Hx Alcohol Use: Yes Alcohol type: beer, wine and hard liquor Hx Substance Use: No Physical Exam Constitutional: WD/WN, vitals as above Respiratory: normal respiratory effort, lungs clear to auscultation Cardiovascular: Rate/Rhythm: + tachycardic Heart Sounds: normal S1 and nor mal S2; no gallop, no murmur and no cardiac rub Vessels: no JVD Extremities: no edema Gastrointestinal (Abdomen): normal bowel sounds, soft, nontender, no hepatosplenomegaly Skin: no rashes, warm and dry Neurologic: moves all extremities; no focal motor deficits Conversant, follows commands Results & Data Vital Signs (Past 12 Hours) Vital Signs Temp Pulse Pulse Pulse Resp BP BP 12/27/18 12:24 186/96 H 12/27/18 12:23 194/96 H 12/27/18 11:31 36.8 C 93 H 20 173/83 H 12/27/18 07:25 94 H 12/27/18 07:03 36.8 C 93 H 18 147/87 H 12/27/18 03:18 36.5 C 98 H 19 144/86 H Pulse Ox 12/27/18 12:24 12/27/18 12:23 12/27/18 11:31 99 12/27/18 07:25 12/27/18 07:03 96 12/27/18 03:18 95 Laboratory Results Cardiac Enzymes 12/27/18 Range/Units 13:18 Troponin I < 0.015 (0-0.045) ng/ml Intake and Output 12/26/18 12/27/18 12/27/18 22:59 06:59 14:59 Intake Total 1900 / 2900 475 / 475 Output Total 2430 / 5035 1205 / 5035 400 / 400 Balance -530 / -2135 -1205 / -2135 75 / 75 Intake: Oral 1900 / 2900 475 / 475 Output: Urine 2400 / 5000 1200 / 5000 400 / 400 Drain Output Lower Medial Back Other: Other Intake Source Sips # Unmeasured Voids 1 Diagnostic Findings EKG performed 12/27/2018 at 12:22 PM revealed sinus tachycardia 127 bpm, nonspecific ST-T wave abnormality. Compared to the prior dated 12/26/2018 at 8:49 AM, ventricular rate has increased by 42 bpm. Echocardiogram performed yesterday 12/26/2018 reviewed independently by the undersigned: Sinus tachycardia in the range of 110 to 150 bpm was present during echocardiogram. The left ventricular wall motion was normal. Left ventricular systolic function was hyperdynamic with LVEF greater than 70%. The right ventricular chamber size and systolic function were normal. Doppler findings do not suggest pulmonary hypertension. Medications Administered Current Inpatient Medications Acetaminophen (Tylenol) 1,000 mg PO Q8H PRN PRN Reason: MILD Pain Rating 1,2,3 Stop: 01/23/19 17:49 Last Admin: 12/26/18 20:03 Dose: 1,000 mg Documented by: Al Hydrox/Mg Hydrox/Simethicone (Maalox) 30 ml PO Q6H PRN PRN Reason: Dyspepsia Stop: 01/23/19 17:49 Bisacodyl (Dulcolax) 10 mg OR DAILY PRN PRN Reason: Constipation Stop: 01/23/19 17:49 Last Admin: 12/25/18 21:20 Dose: 10 mg Documented by: Clonazepam (Klonopin) 1 mg PO HS PRN PRN Reason: sleep Stop: 01/23/19 17:49 Last Admin: 12/27/18 01:26 Dose: 0.5 mg Documented by: Diphenhydramine HCl (Benadryl Capsule) 25 mg PO Q6H PRN PRN Reason: Allergic Rhinitis/Insomnia Stop: 01/23/19 17:49 Last Admin: 12/26/18 11:18 Dose: 25 mg Documented by: Famotidine (Pepcid) 20 mg PO Q12H PRN PRN Reason: Dyspepsia Stop: 01/23/19 17:49 Fexofenadine HCl (Caty) 180 mg PO HS TAYO Stop: 01/23/19 20:59 Last Admin: 12/26/18 20:04 Dose: 180 mg Documented by: Gabapentin (Neurontin) 300 mg PO HS [facility] Stop: 01/26/19 20:59 Hydroxyzine HCl (Vistaril) 25 mg PO Q8H PRN PRN Reason: Anxiety Stop: 01/23/19 17:49 Acetaminophen (Ofirmev) 1,000 mg in 100 mls @ 400 mls/hr IV Q8 PRN PRN Reason: MILD Pain Rating 1,2,3 Stop: 01/23/19 17:49 Lorazepam (Ativan) 0.5 mg in 1 mls @ 0.5 mls/min IV Q8H PRN PRN Reason: Sedation/Anxiety Stop: 01/23/19 17:49 Last Admin: 12/24/18 20:30 Dose: 0.5 mls/min Documented by: Promethazine HCl 12.5 mg/ (Sodium Chloride) 50.5 mls @ 204 mls/hr IV Q6H PRN PRN Reason: Nausea &/or Vomiting Stop: 01/23/19 17:49 Influenza Virus Vaccine Quadrival (Flu Vaccine, Do Not Administer) 1 ea N/A PRN PRN PRN Reason: Notification Stop: 01/23/19 17:49 Ketorolac Tromethamine (Toradol) 30 mg IV Q6H PRN PRN Reason: Pain Stop: 12/31/18 11:14 Last Admin: 12/26/18 13:44 Dose: 30 mg Documented by: Lorazepam (Ativan) 0.5 mg PO Q8H PRN PRN Reason: Sedation/Anxiety Stop: 01/23/19 17:49 Magnesium Hydroxide (Milk Of Magnesia) 30 ml PO DAILY PRN PRN Reason: Constipation Stop: 01/23/19 17:49 Metoclopramide HCl (Reglan) 10 mg IV Q6H PRN PRN Reason: Nausea &/or Vomiting Stop: 01/23/19 17:49 Metoprolol Tartrate (Lopressor) 25 mg PO QID [facility] Stop: 01/26/19 20:59 Ondansetron HCl (Zofran) 4 mg IV Q6H PRN PRN Reason: Nausea &/or Vomiting Stop: 01/23/19 17:49 Ondansetron HCl (Zofran) 4 mg PO Q6H PRN PRN Reason: Nausea Stop: 01/23/19 17:49 Pneumococcal Polyvalent Vaccine (Pneumococcal Vacc, Do Not Administer) 1 ea N/A PRN PRN PRN Reason: Notification Stop: 01/23/19 17:49 Senna/Docusate Sodium (Senokot S) 2 tab PO HS [facility] Stop: 01/23/19 20:59 Last Admin: 12/26/18 20:03 Dose: 2 tab Documented by: Simvastatin (Zocor) 40 mg PO PM [facility] Stop: 01/23/19 20:59 Last Admin: 12/26/18 20:04 Dose: 40 mg Documented by: Sodium Biphosphate/Sodium Phosphate (Fleet Enema) 132 ml OR ONE PRN PRN Reason: Constipation Stop: 01/23/19 17:49
--- NOTE | 2018-12-27 14:42 | Orthopedic Progress Note ---
Date of Service December 27, 2018 Assessment & Plan (1) Spinal stenosis, lumbar region with neurogenic claudication: This time he is waiting the results of some final cardiac studies. Pending these results hopefully be able to be discharged home once cleared by medicine tomorrow. Present on Admission?: Yes Subjective Patient's back pain is controlled leg symptoms markedly improved. He denies any chest pain at this time. He feels somewhat "wired" most likely secondary to the IV steroids. Pain is well controlled otherwise. Physical Exam Physical Exam: On exam he looks comfortable. Is excellent strength testing. Results & Data Vital Signs (Past 12 Hours) Vital Signs Temp Pulse Pulse Pulse Resp BP BP 12/27/18 12:24 186/96 H 12/27/18 12:23 194/96 H 12/27/18 11:31 36.8 C 93 H 20 173/83 H 12/27/18 07:25 94 H 12/27/18 07:03 36.8 C 93 H 18 147/87 H 12/27/18 03:18 36.5 C 98 H 19 144/86 H Pulse Ox 12/27/18 12:24 12/27/18 12:23 12/27/18 11:31 99 12/27/18 07:25 12/27/18 07:03 96 12/27/18 03:18 95
[2018-12-27] MEDS ORDERED: OPTIRAY 320 125ml IV PRN (18:19)
--- NOTE | 2018-12-27 18:36 | CT Scan Report ---
CT ANGIOGRAM OF THE CHEST CLINICAL HISTORY: Atypical chest pain. Suspected acute pulmonary embolism. COMPARISON STUDY: August 2009 TECHNIQUE: Following the IV administration of 98 mL of Optiray-320, CT angiogram of the thorax was pe rformed from the thoracic inlet to the lung bases utilizing the pulmonary embolus protocol. Images ar e reviewed in the axial, sagittal, and coronal planes. IV contrast was administered without complicat ion. MIP imaging was performed. A dose lowering technique was utilized adhering to the principles of ALARA. CT DOSE: 457.91 mGycm FINDINGS: No pathologically enlarged axillary mediastinal or hilar lymph nodes were visualized. There was no evidence of thoracic aortic dilatation. There were no pulmonary artery filling defects to indicate acute pulmonary embolism. No pleural effusions are visualized. There was no evidence of focal pulmonary consolidation. There are basilar atelectatic changes present . IMPRESSION: 1. No acute intrathoracic findings 2. No evidence of acute pulmonary embolism 3. No evidence of focal pulmonary consolidation 4. No evidence of pathologic adenopathy Electronically signed by: Grayson Forte M.D. 12/27/2018 6:34 PM
[2018-12-27] MEDS ORDERED: GABAPENTIN 300 MG CAP PO SCH (21:00)
[2018-12-27] MEDS: FEXOFENADINE HCL 180 MG TAB PO SCH (21:17)
[2018-12-27] MEDS: METOPROLOL TARTRATE 25 MG TAB PO SCH (21:18)
[2018-12-27] MEDS: SIMVASTATIN 40 MG TAB PO SCH (21:18)
[2018-12-27] MEDS: DOCUSATE SODIUM/SENNA 50/8.6MG TAB PO SCH (21:18)
[2018-12-28 05:55] LABS: Hematocrit (blood only) 37.9 % (42-52); Hemoglobin 13.4 g/dL (14.0-18.0); Mean Corpuscular Hgb Conc 35.4 g/dL (32-36); Mean Corpuscular Volume 89.2 fL (80-100); Mean Platelet Volume 9.2 fL (7.4-10.4); Platelet Count 194 K/uL (130-400); RDW Coefficient of Variation 13.2 % (11.5-14.5); RDW Standard Deviation 42.8 fL (36.4-46.3); Red Blood Count 4.25 M/uL (4.7-6.1); White Blood Count 7.27 K/uL (4.8-10.8)
[2018-12-28 06:22] LABS: BUN Creatinine Ratio 15.8 (10-20); Creatinine Clr Calc Pharmacy 76.2 ml/min; Potassium 4.1 mmol/L (3.5-5.1)
[2018-12-28] MEDS: ACETAMINOPHEN 500 MG TAB PO PRN (07:33)
[2018-12-28] MEDS: METOPROLOL TARTRATE 25 MG TAB PO SCH ×2 (07:34→12:31)
--- NOTE | 2018-12-28 10:59 | Discharge Summary ---
Date of Service December 28, 2018 Admission HPI Per Admitting Provider This is a 58-year-old male well-known to me that presents with chronic persistent back and leg pain. After failing extensive course of nonoperative care he is here for surgical intervention. Principal Diagnosis Lumbar spinal stenosis with neurogenic claudication Discharge Data Allergies Allergy/AdvReac Type Severity Reaction Status Date / Time morphine Allergy Intermediate tachycardia, Verified 12/24/18 09:14 htn carbamazepine Allergy Mild unsure Verified 12/24/18 09:14 levofloxacin Allergy Mild torn Verified 12/24/18 09:14 ligament and tendon Penicillins Allergy Mild Hives Verified 12/24/18 09:14 oxycodone [From Roxicodone] Allergy shortness Verified 12/27/18 11:37 of breath Consultations 12/24/18 17:50 Consult Case Management - Discharge Planning Routine 12/26/18 15:17 Consult Medical [Consult Internal Medicine] Routine 12/27/18 12:35 Consult Cardiology Routine Procedures Performed Operation Date: 12/24/18 10:45 Actual Procedures p L5-S1 Removal of Hardware, L4-L5 Decompression and Fusion, Spinal Cord Monitoring(Not Applicable) - Cyril Giles DO Ordered Studies 12/24/18 13:00 FL fluoroscopy <1hr Routine FL lumbar spine 2-3V Routine 12/27/18 17:12 CT angio chest PE protocol Routine Hospital Course (1) Spinal stenosis, lumbar region with neurogenic claudication: Patient underwent lumbar decompression fusion tolerated as well as taken the orthopedic floor postoperative. Postop day #1 is up and ambulating leg pain improved progressive postop day #2. He was scheduled for DC home but appeared to have a significant allergic reaction to oxycodone. He has undergone extensive medical work-up determined to be essentially clear. Subsequent he was discharged home. Discharge orders and instructions can from the chart for further review. Total Time Total Time Spent Total Time Spent (In Minutes): 20 minutes Discharge Plan Discharge Items Patient Disposition: Home - Self-Care Reason For Visit: Lumbar Spine Pain Discharge Diagnosis: lumbar stenosis Discharge Goals: Improve function Activity: Per 'Additional Instructions' section Non-emergency contact: Primary Care Provider Call non-emergency contact if: you have any medication questions Follow-up/Referrals: Paco Sean MD [Primary Care Provider] - Diet: Regular Addtl Provider Instructions: ACTIVITY RECOMMENDATIONS: SELF CARE INSTRUCTIONS AFTER THORACIC/LUMBAR FUSIONS 1. You may walk to your tolerance. It is good exercise for your legs and back. Expect some back and intermittent leg aches and pains. 2. You may perform "counter-top" level activities (make a sandwich, neto with a project, etc.). 3. No bending or lifting of more than 10 pounds or back twisting of any nature (roll like a log when turning in bed). 4. You may ride in a car for 20-30 minutes at a time. No driving until after your first visit with your doctor. 5. Frequent changes of position and restricting sitting to 30 minutes at a time will help limit the amount of back spasms and stiffness you may experience. 6. You may discontinue the use of ambulatory aids (cane, crutches, etc.) once your strength and confidence allow. 7. You may point of sale associate the shower and let water strike your incision when you arrive home at least once daily. Do not take a tub bath, sit in a hot tub or go into a swimming pool until after your first recheck in the office. SPECIAL CARE INSTRUCTIONS: VERY IMPORTANT TO READ AND REVIEW A. Your surgical incision has been closed with a cosmetic suture under the skin that will dissolve in about 6 weeks. In 14 days, you can use a pair of clean scissors and cut the suture that is left outside of the skin at the ends of your incision. 1. The small skin tapes can be removed 7 days after surgery if they have not fallen off by that point. 2. You may keep the wound open to air as much as possible to promote healing after post-op day number 5 unless told otherwise by your doctor. 3. If you think the wound looks like it is becoming infected (redness or worsening drainage) and/or you are experiencing fever, chill or worsening back pain and muscle spasms, contact the office so that we may evaluate you as soon as possible. B. Complications are uncommon, but please contact us if you have any signs or symptoms of: 1. wound infection (fever higher than 102.5 degrees F, redness, separation of wound, drainage, or increasing pain from the incision) 2. blood clots in legs (pain, swelling, redness and warmth in legs) 3. urinary tract infection (fever higher than 102.5 degrees F, burning upon urination or increased frequency of urination) 4. nerve problems (inability to walk on your toes or heels, numbness, loss of bowel or bladder control) 5. any other symptoms that concern you C. Please call the office at if you have any concerns or questions about your operation or recovery. D. No smoking! Smoking drastically decreases the chance of a solid fusion. E. Do not take any anti-inflammatory medications (Indocin, Advil, Motrin, Aspirin, Naprosyn, etc.) as these may inhibit the chance of a solid fusion. Tylenol is okay to take for pain. MANAGING PAIN AFTER SPINAL SURGERY 1. Narcotic medication is intended for short-term use and will be provided for surgical pain. Surgical pain usually lasts for a period of 4-6 weeks. Narcotic medication includes Percocet, Vicodin, Darvocet, Tylenol #3 or Lortab. 2. Longer-term pain is more appropriately treated with non-narcotic medication such as Tylenol ES. 3. Muscle spasm is not appropriately treated with narcotics. Muscle relaxers such as Soma, Flexeril or Skelaxin can be used along with Tylenol ES. 4. Remember that we all live with some "aches and pains". This is not unusual or uncommon after an injury or as we get older. a. Back pain is expected and may include muscle spasms for 4 to 6 weeks after surgery. The pain should gradually improve. If the pain worsens for no apparent reason, please contact the office. b. Intermittent leg pain may also be experienced and should not be concerned about unless it worsens for no apparent reason. If so, please contact the office. 5. We will provide appropriate medication within the normal guidelines of their prescribed use. We will also be very cautious and aware of potential abuse and extended duration of patients' medication needs. a. Pain medications are for your comfort and to assist with sleep and rest so that the tissue can heal. They are not provided in order to return to normal activity and should not be used through the day. To do so or worsening pain at night can result from ongoing tissue damage and development of tolerance to the prescribed medicine. 6. Please allow 2-3 days to process refills. Prescriptions will not be mailed but must be picked up at the office. FOLLOW UP VISIT: Keep your scheduled follow-up appointment. Any questions, please call the office at . Prescriptions: New tramadol 50 mg Tablet 50 mg PO Q4H PRN (Reason: Pain, Moderate) Qty: 30 RF: 0 Continued clonazepam 1 mg Tablet 1 mg PO DAILY PRN (Reason: sleep ) RF: 0 fexofenadine [Caty Allergy] 180 mg Tablet 180 mg PO HS RF: 0 simvastatin 40 mg Tablet 40 mg PO PM RF: 0 gabapentin 300 mg Capsule 300 mg PO HS RF: 0 metformin 500 mg Tablet,Er Michael.Retention 24 Hr 500 mg PO BID RF: 0 Stand-Alone Forms: [facility] Discharge Orders: Discharge Order (Routine); Ordered 12/28/18 Ordered By: Cyril Giles Admission Data Admit Date/Time: 12/24/18 16:35 Attending Provider: Cyril Giles Admit Provider: Cyril Giles Primary Care Provider: Paco Sena Other Providers: Roel Andrea ; Rodrigue Dominguez Service: Telemetry
--- NOTE | 2018-12-28 11:24 | Hospitalist Progress Note ---
Date of Service December 28, 2018 Assessment & Plan (1) Syncope: (2) Allergic reaction caused by a drug: (3) Sinus tachycardia: (4) Palpitations: Syncopal Episode likely Vasovagal/Drug reaction-Oxycodone Sinus Tachycardia/PVCs Also had similar problems with opioid use on prior hospitalization as per patient Symptoms resolved Received diphenhydramine/IV methylprednisolone 125 mcg and IV fluids Small laceration of right orbit facial x-ray was negative for fracture ECHO:Normal CTA: Normal, No PE Telemetry: No Arrhythmias, PVCs present Avoid Opioids Plan to discharge on Metoprolol 50mg BID Appreciate Cardiology Input BP stable Advise to monitor BP/HR at home and consider ZIO patch as outpatient if necessary Advised follow up with Cardiology upon discharge (5) Forehead laceration: Stable (6) Spinal stenosis, lumbar region with neurogenic claudication: POD #4 lumbar decompression fusion L4-L5 with removal of hardware L5-S1 by Dr. Giles EBL was 150 mL Activity/Pain/wound per Ortho avoid all narcotics as able (7) Acute blood loss anemia: Hb stable today Monitor (8) Hyperlipidemia: Continue statin (9) Prediabetes: Prior A1c 5.1 On metformin twice daily as outpatient Hold PO meds while inpatient (10) DVT prophylaxis: per ortho Disposition: As per Primary Team Follow up: PCP Subjective Patient is seen and examined at bedside Offers no complaints No arrhythmias on Tele except PVCs Back pain at surgical site is better Denies any chest pain, shortness of breath, dizziness, nausea Offers no other complaints Blood pressure better Discussed with Cardiology today Review of Systems Review of Systems: All systems reviewed & are unremarkable except as noted in HPI & below Physical Exam Physical Exam: Physical Exam: Vitals signs as noted above General Appearance:Moderately built and nourished, no apparent distress Head: normocephalic, Atraumatic Eyes: normal inspection, EOMI Neck: supple, Trachea midline Respiratory/Chest: Normal breath sounds, CTA Cardiovascular: S1, S2, No murmur Abdomen/GI:Soft, Non tender, Bowel sounds present Back:Surgical site in dressing Extremities/Musculoskelatal:normal inspection, no edema Neurologic/Psych:AAOX3, grossly no focal neurological deficits Skin: normal color, warm Results & Data Vital Signs (Past 12 Hours) Vital Signs Temp Pulse Pulse Resp BP BP Pulse Ox 12/28/18 11:16 36.8 C 89 69 16 144/77 H 139/81 96 12/28/18 07:17 36.8 C 69 16 144/77 H 96 12/28/18 03:32 37.1 C 89 18 117/74 97 Laboratory Results Short CBC 12/28/18 Range/Units 05:36 WBC 7.27 (4.8-10.8) K/uL Hgb 13.4 L (14.0-18.0) g/dL Hct 37.9 L (42-52) % Plt Count 194 (130-400) K/uL BMP 12/28/18 05:36 Sodium 138 Potassium 4.1 Chloride 107 Carbon Dioxide 29 BUN 18 Creatinine 1.16 Glucose 114 H Calcium 9.0 Cardiac Enzymes 12/27/18 Range/Units 13:18 Troponin I < 0.015 (0-0.045) ng/ml
--- NOTE | 2018-12-28 17:20 | Cardiology Progress Note ---
Date of Service December 28, 2018 Assessment & Plan (1) Syncope: It appears that his syncopal episode was either vasovagal in etiology or related to allergic reaction as he was noted to have hives after receiving oxycodone. (2) Sinus tachycardia: Heart rate now within normal range. Reduce metoprolol to 25 mg twice daily. Follow-up with [facility] cardiology clinic 2 to 4 weeks post discharge. (3) Allergic reaction caused by a drug: Subjective Patient seen and examined at the bedside. Heart rate controlled on telemetry. Denies recurrent lightheadedness or dizziness. No recurrent urticaria. Re questing discharge. Review of Systems Review of Systems: All systems reviewed & are unremarkable except as noted in HPI & below Physical Exam Physical Exam: General: NAD, AAO x3, well nourished. HEENT: Normocephalic. Atraumatic. Conjunctiva pink, no scleral icterus. Neck: No carotid bruits, the carotid upstrokes are brisk. No JVD. No HJR Heart: Regular normal S-1 and S-2 no S-3 or S-4 gallop. No murmurs or rub appreciated. PMI is not displaced. No RV heave. Lungs: Clear bilateral without rales , rhonchi, or wheeze. Abdomen: Normal bowel sounds. Soft. Nontender. No masses or organomegaly. No abdominal bruits. Extremities: No clubbing, cyanosis, or edema. Pulses: radial=2/4, Dorsalis pedis =2/4, posterior tibial=2/4. Neuro: Cranial nerves grossly intact. No focal motor deficit. Results & Data Vital Signs (Past 12 Hours) Vital Signs Temp Pulse Pulse Resp BP BP Pulse Ox 12/28/18 11:33 36.7 C 77 16 145/80 H 98 12/28/18 11:16 36.8 C 89 69 16 144/77 H 139/81 96 12/28/18 07:17 36.8 C 69 16 144/77 H 96
== END 2018-12-28 14:14 | disposition home or self-care (01) | DRG 454 ==
LOC: ASU 08:56 → 3E 16:35 → 2S 12-26 15:33
DX: T40.2X5A Adverse effect of other opioids, initial encounter; Z79.899 Other long term (current) drug therapy; Y99.8 Other external cause status; I49.3 Ventricular premature depolarization; S01.111A Laceration without foreign body of right eyelid and periocular area, initial encounter; M48.062 Spinal stenosis, lumbar region with neurogenic claudication; W18.39XA Other fall on same level, initial encounter; Z88.8 Allergy status to other drugs, medicaments and biological substances; R00.0 Tachycardia, unspecified; E78.5 Hyperlipidemia, unspecified; Z88.5 Allergy status to narcotic agent; R73.03 Prediabetes; Z88.0 Allergy status to penicillin; Y92.230 Patient room in hospital as the place of occurrence of the external cause; L50.9 Urticaria, unspecified; R55 Syncope and collapse; Z79.84 Long term (current) use of oral hypoglycemic drugs; Z88.1 Allergy status to other antibiotic agents; Z98.1 Arthrodesis status; D62 Acute posthemorrhagic anemia

== ENCOUNTER 2024-01-30 10:01 | Inpatient (IN) ==
--- NOTE | 2024-01-18 15:06 | Anesthesiology Consultation ---
Date of Service January 18, 2024 Assessment & Plan (1) Encounter for pre-operative examination: Chart Review Chart Review: Acceptable Risk for Surgery (pending PCP and cardio clearance ) and Patient NOT seen in Pre Admission Testing - Awaiting surgeon ordered cardio clearance(phone message in [facility] cardio system- awaiting response- did contact cardio office about preop EKG- awaiting response and final cardio clearance- may need appt per cardio office) - Awaiting surgeon ordered PCP clearance ([facility]- PCP requesting preop appt - no date or time at this time) - Check BSG AM DOS -Infectious Disease screening: Per PAT nursing assessment on 01/18/24. No known infectious disease contacts in past 10 days or current infectious disease symptoms. No recent travel outside the country. L4-S1 decompression and fusion 12/24/18= Done under GA with Grade 3 view with MAC #3.0. ETT #8.0. Atraumatic History Surgery Operation Date: 01/30/24 11:55 Proposed Procedures p L3-L4 Decompression and Fusion, L4-L5 Hardware Removal with Spinal Cord Monitoring - Cyril Giles DO Height/Weight Height: 6 ft Weight: 86.183 kg Allergies Allergy/AdvReac Type Severity Reaction Status Date / Time methylprednisolone Allergy Severe Tachycardia Verified 01/18/24 14:26 prednisone Allergy Severe Tachycardia Verified 01/18/24 14:26 morphine Allergy Intermediate tachycardia, Verified 01/18/24 14:26 htn carbamazepine Allergy Mild unsure Verified 01/18/24 14:26 levofloxacin Allergy Mild torn Verified 01/18/24 14:26 ligament and tendon oxycodone [From Roxicodone] Allergy Mild shortness Verified 01/18/24 14:26 of breath Medications Home Medications Medication Instructions Recorded Confirmed Last Taken fexofenadine 180 mg tablet 180 mg PO HS 11/27/18 01/18/24 12/23/18 20:00 (Caty Allergy) gabapentin 300 mg capsule 300 mg PO TID PRN Pain 11/27/18 01/18/24 12/23/18 20:00 metformin 500 mg 24 hr 1,000 mg PO HS 11/27/18 01/18/24 12/23/18 08:00 tablet,extended release (gastric retention) tramadol 50 mg tablet 50 mg PO Q4H PRN Pain, Moderate 05/08/19 05/31/24 Unknown #30 tabs ascorbic acid (vitamin C) 500 mg 500 mg PO QAM 01/18/24 01/18/24 Unknown tablet (Vitamin C) atorvastatin 20 mg tablet 20 mg PO HS 01/18/24 01/18/24 Unknown candesartan 32 mg tablet 32 mg PO QAM 01/18/24 01/18/24 Unknown cholecalciferol (vitamin D3) 25 25 mcg PO QAM 01/18/24 01/18/24 Unknown mcg (1,000 unit) chewable tablet (Vitamin D3) fluticasone propionate 50 1 spray intranasal DAILY PRN 01/18/24 01/18/24 Unknown mcg/actuation nasal allergies spray,suspension vitamin K2 (MK-4) 100 mcg tablet 400 mcg PO QAM 01/18/24 01/18/24 Unknown Past Medical History Medical History (Updated 01/18/24 @ 15:24 by Shiela Farley PA-C) Chronic back pain History of anemia Hx of sinus tachycardia 2009- due to morphine 2018 - possibly due to methylprednisone vs oxycodone- post op from lumbar surgery- also had (per cardio likely vasovagal) syncope- admitted to ICU, no issues since Hyperlipidemia Hypertension Prediabetes On Metformin Last Hgb A1C per [facility] records 10/2023 was 6.1 Spinal stenosis, lumbar Past Family History Family History Father Lung cancer Mother Enlarged heart Past Surgical History Surgical History Fusion of spine (2019) fusion x 2 2009 and 2018 H/O inguinal hernia repair (02/03/22) [facility] repair Dr. Kristine Chandler History of discectomy (2003) lumbar Hx of colonoscopy Hx of repair of right rotator cuff (1989) Social History Smoking Status: Never smoker Do You Dip or Chew Tobacco: No Hx Alcohol Use: Yes Alcohol type: beer, wine and hard liquor alcohol intake frequency: a few times a week Hx Substance Use: No substance use type: does not use Lab Results Anesthesia Preop Results Results Anesthesia Widget: WBC 6.96 K/ul (4.8-10.8) 01/17/24 Hgb 15.1 g/dl (14.0-18.0) 01/17/24 Hct 45.4 % (42.0-52.0) 01/17/24 Plt 220 K/uL (130-400) 01/17/24 Na 138 mmol/L (136-145) 01/17/24 K 4.3 mmol/L (3.5-5.1) 01/17/24 Cl 102 mmol/L (98-107) 01/17/24 CO2 30 mmol/L (21-32) 01/17/24 BUN 17 mg/dl (6-23) 01/17/24 Creat 1.20 mg/dl (0.6-1.4) 01/17/24 Glucose Level 101 mg/dl (70-99(Fasting)) H 01/17/24 PT 10.6 Seconds (9.0-12.0) 01/17/24 PTT 26 Seconds (21-31) 01/17/24 INR 1.0 (0.9-1.1) 01/17/24 Urine Color Yellow 01/17/24 Urine Appearance Clear (Clear) 01/17/24 Urine pH 7.5 (4.5-7.5) 01/17/24 Urine Specific [place] 1.006 (1.000-1.030) 01/17/24 Urine Protein Negative (Negative) 01/17/24 Urine Glucose (UA) Negative (Negative) 01/17/24 Urine Ketones Negative (Negative) 01/17/24 Urine Blood Negative (Negative) 01/17/24 Urine Nitrite Negative (Negative) 01/17/24 Urine Bilirubin Negative (Negative) 01/17/24 Urine Urobilinogen Negative (Negative) 01/17/24 Urine Leukocyte Esterase Negative (Negative) 01/17/24 Blood Type O Positive 01/17/24 Antibody Screen NEGATIVE 01/17/24 Testing Electrocardiogram Date: 01/17/24 NSR at 86bpm Possible old lateral infarct Rightward axis When compared to EKG from December 27, 2018- HR has decreased by 41bpm, criteria for lateral infarct are now present per cardio (Did contact cardio office to ensure cardio reviews EKG prior to surgeon ordered cardio clearance) Chest X-Ray Date: 01/17/24 Findings: + NAD Echocardiogram Date: 12/26/18 EF: >70% RWMA: + none Other Findings: + diastolic dysfunction (Grade I); no LVH ST in the range of 110-115bpm was present during ECHO LV is hyperdynamic Basal septum is thickened and angulated consistent with sigmoid septum RV is normal is size and function Doppler findings do not suggest pulm HTN
[~2024-01-30 10:01] MED LIST changes: -ACETAMINOPHEN 500 MG TAB PO SCH; -CLINDAMYCIN 600 MG/54 ML BAG IV SCH; -CeleBREX 200 MG CAP PO SCH; +DEXAMETHASONE SOD INJ 4 MG/ML VIAL ONE; -GABAPENTIN 300 MG x 2 PO SCH; +GLYCOPYRROLATE 0.2 MG/ML VIAL ONE; +LIDOCAINE 2% 2 ML VIAL/AMP(20MG/ML) INFIL ONE; -LR 15ML/HR IV SCH; +MIDAZOLAM HCL 1 MG/ML 2ML VIAL ONE; +ONDANSETRON INJ 2 MG/ML 2 ML VIAL ONE; +PROPOFOL IV EMULSION 10 MG/ML 20 ML VIAL IV ONE; +ROCURONIUM BROMIDE 10 MG/ML 5 ML VIAL IV ONE; +SUGAMMADEX SODIUM 200 MG/2 ML VIAL IV ONE; +fentaNYL citrate PF 100 MCG/2 ML VIAL ONE
[2024-01-30] MEDS: LR 15ML/HR IV SCH (10:26)
[2024-01-30] MEDS: LR 60ML/HR IV SCH (10:26)
[2024-01-30] MEDS: VANCOMYCIN HCL 1,250 MG in SODIUM CHLORIDE 0.9% 250 ML IV SCH (10:27)
[2024-01-30] MEDS: ACETAMINOPHEN 500 MG TAB PO SCH (10:34)
[2024-01-30] MEDS: CeleBREX 200 MG CAP PO SCH (10:34)
[2024-01-30] MEDS: GABAPENTIN 600 MG DOSE PO SCH (10:34)
--- NOTE | 2024-01-30 11:31 | History & Physical Bridge Note ---
Date of Service January 30, 2024 History & Physical Bridge Note I have examined the patient, reviewed the History & Physical and in the interval since the performance of the History & Physical I have noted the following changes of clinical significance: no changes noted
--- NOTE | 2024-01-30 11:32 | History & Physical Report ---
Date of Service January 30, 2024 Assessment & Plan (1) Spinal stenosis, lumbar region with neurogenic claudication: Plan: L3-L4 decompression and fusion, hardware removal L4-L5 History of Present Illness Chief Complaint: Back and bilateral leg pain Primary Care Provider: Paco Sena MD This is a 64-year-old male who presents for chronic persistent back and leg pain and failing since course of nonoperative care is here for surgical invention. Allergies Allergy/AdvReac Type Severity Reaction Status Date / Time methylprednisolone Allergy Severe Tachycardia Verified 01/30/24 10:37 prednisone Allergy Severe Tachycardia Verified 01/30/24 10:37 morphine Allergy Intermediate tachycardia, Verified 01/30/24 10:37 htn carbamazepine Allergy Mild unsure Verified 01/30/24 10:37 levofloxacin Allergy Mild torn Verified 01/30/24 10:37 ligament and tendon oxycodone [From Roxicodone] Allergy Mild shortness Verified 01/30/24 10:37 of breath Home Medications Medication Instructions Recorded Confirmed Type fexofenadine 180 mg tablet 180 mg PO HS 11/27/18 01/30/24 History (Caty Allergy) gabapentin 300 mg capsule 300 mg PO TID PRN Pain 11/27/18 01/30/24 History metformin 500 mg 24 hr 1,000 mg PO HS 11/27/18 01/30/24 History tablet,extended release (gastric retention) tramadol 50 mg tablet 50 mg PO Q4H PRN Pain, Moderate 12/25/18 01/30/24 Rx #30 tabs ascorbic acid (vitamin C) 500 mg 500 mg PO QAM 01/18/24 01/30/24 History tablet (Vitamin C) atorvastatin 20 mg tablet 20 mg PO HS 01/18/24 01/30/24 History candesartan 32 mg tablet ([place]and) 32 mg PO QAM 01/18/24 01/30/24 History cholecalciferol (vitamin D3) 25 25 mcg PO QAM 01/18/24 01/30/24 History mcg (1,000 unit) chewable tablet (Vitamin D3) fluticasone propionate 50 1 spray intranasal DAILY PRN 01/18/24 01/30/24 History mcg/actuation nasal allergies spray,suspension vitamin K2 (MK-4) 100 mcg tablet 400 mcg PO QAM 01/18/24 01/30/24 History Past Med/Surg History Problem List Encounter for pre-operative examination History of dysplastic nevus (Acute) Spinal stenosis, lumbar region with neurogenic claudication Chronic back pain Hyperlipidemia Medical History History of anemia Prediabetes On Metformin Last Hgb A1C per [facility] records 10/2023 was 6.1 Spinal stenosis, lumbar Hx of sinus tachycardia 2009- due to morphine 2018 - possibly due to methylprednisone vs oxycodone- post op from lumbar surgery- also had (per cardio likely vasovagal) syncope- admitted to ICU, no issues since Chronic back pain Hypertension Hyperlipidemia Surgical History Hx of colonoscopy H/O inguinal hernia repair (02/03/22) [facility] repair Dr. Kristine Chandler Hx of repair of right rotator cuff (1989) History of discectomy (2003) lumbar Fusion of spine (2018) fusion x 2 2009 and 2018 Family History Father Lung cancer Mother Enlarged heart Social History (Updated 12/26/18 @ 18:23 by Shabnam Hewitt PA-C) Smoking Status: Never smoker Second Hand Exposure: No; Do You Dip or Chew Tobacco: No; Tobacco Cessation Education Requested by Patient: No Hx Alcohol Use: Yes Alcohol type: beer, wine and hard liquor Hx Substance Use: No Preferred Language: Greek Communication Ability: Effective Call Center Receptionist Required: No Beliefs That Will Affect Care: None Current Living Situation: Spouse Other Information That Helps Us Care for You: No Feels Safe at Home: Yes Safety Concerns: Feels Safe At This Time Assistive Devices: Glasses Assistive Devices Comment: readers Physical Exam Physical Exam: Patient is alert and oriented Heart regular rhythm Lungs clear Results & Data Results & Data Vital Signs (Past 12 Hours) Vital Signs Temp Pulse Resp BP Pulse Ox O2 Del Method 01/30/24 10:41 36.8 C 82 18 155/82 H 95 Room Air
[2024-01-30] MEDS: BUPIVACAINE/EPINEPHRINE 0.25% 1:200,000 30 ML VIAL ONE (12:31)
[2024-01-30] MEDS: ceFAZolin 330 MG/ML 1 GM VIAL ONE (12:31)
[2024-01-30] MEDS: FLOSEAL HEMOSTATIC MATRIX 10ML TOP ONE (13:27)
--- NOTE | 2024-01-30 13:38 | Operative Report ---
Post Operative Report Pre & Post Diagnosis Operation Date: 01/30/24 12:15 Pre-Op Diagnosis: Spinal Stenosis of Lumbar Region with Radiculopathy Post-Op Diagnosis: Spinal Stenosis of Lumbar Region with Radiculopathy I identified the patient and participated in the time-out.: Yes Procedure Operation Date: 01/30/24 12:15 Actual Procedures #1 removal of posterior instrumentation L4-5. #2 exploration of fusion L4-5 per #3 lumbar decompression with bilateral medial facetectomies and foraminotomies L3-L4. #4 posterior spinal fusion L3-L4. #5 placed posterior instrumentation L3-4. #6 interbody fusion L3-L4. #7 placement of Spira 12 x 26 mm cage at L3- L4. #8 placement locally harvested morselized autograft in the posterior gutters. #9 placement of infuse collagen sponge combined with close in the posterior lateral gutters and Morpheus bone graft interbody space. Surgeon Cyril Giles, Philosophy Faculty Member Chanda Garrido Estimated Blood Loss 150 Findings Consistent with Post-Op Diagnosis Specimens None Indications This is a 64-year-old male presents above-mentioned diagnosis after failing course of nonoperative care is here for surgical invention. Description of Procedure Patient was met with identified informed consent obtained. Patient was then taken to the operative suite underwent patient placed in a prone position on the Kt table on top of the Teodoro frame. All bony promises well-padded eyes inspected to ensure no external pressure placed upon them. This point the lumbar spine was prepped and draped in normal sterile fashion. Sharp dissection with the assistance of Bovie cautery form down to exposing the lamina and transverse processes of L3 and instrumentation L4-L5 bilaterally. I then proceeded to move the hardware bilaterally explored the fusion mass noting it to be mature and intact. Informed complete laminectomy of L3 including bilateral medial facetectomies and foraminotomies addressing severe lateral recess and foraminal stenosis. Pedicle screws were then placed in L3-L4 bilaterally with the assistance of fluoroscopy and appropriate size santiago placed. By way of transforaminal approach on the left complete discectomy of L3-L4 was performed endplates corrected to subcortical bleeding bone and a 12 x 26 mm spiral cage filled with Morpheus bone graft tapped in position. The rods were then compressed locked into final position bilaterally. The transverse processes of L3-L4 burred to subcortical bone. Infuse collagen sponge Koros bone graft and local autograft placed in the posterior lateral gutters. 15 round ANIL inserted. The incision was then closed with 1 Vicryl in the fascia 2-0 Vicryl subcutaneously and 4 Monocryl for final closure. Steri-Strips sterile dressings placed. Patient waken taken PACU stable condition. Please note spinal cord monitoring was utilized procedure no changes noted. Lastly Chanda Garrido was pres ent at the entire surgery involved the patient positioning complex portion of the surgery and final skin closure. I attest to the content of the Intraoperative Record and any orders documented therein. Any exceptions are noted below.
[2024-01-30] MEDS ORDERED: DexMEDEtomidine HCL IV 100 MCG/ML VIAL IV ONE (13:40)
[2024-01-30] MEDS ORDERED: ePHEDrine sulfate 50 MG/5 ML SYR ONE (13:41)
--- NOTE | 2024-01-30 14:02 | Anesthesiology Progress Note ---
Date of Service January 30, 2024 Anesthesia Post Procedure Vital Signs Vital Signs: Temp Pulse Pulse Resp BP Pulse Ox O2 Del Method 01/30/24 14:00 91 H 15 121/63 100 Oxymask 01/30/24 13:51 36.3 C L 88 15 118/67 97 Oxymask 01/30/24 10:41 36.8 C 82 18 155/82 H 95 Room Air O2 Flow Rate 01/30/24 14:00 5 01/30/24 13:51 5 01/30/24 10:41 Transfer of Care Handoff Completed per policy Notes Mental Status: alert / awake / arousable Patient Amnestic to Procedure: Yes Nausea / Vomiting: adequately controlled Pain: adequately controlled Airway Patency, RR, SpO2: stable & adequate BP & HR: stable & adequate Hydration State: stable & adequate Anesthetic Complications: no major complications apparent
[2024-01-30] MEDS ORDERED: ATROPINE SULFATE 0.1 MG/ML 10ML SYR IV PRN (14:07)
[2024-01-30] MEDS ORDERED: HYDROmorphone INJ 2 MG/ML SYR/VIAL IV PRN (14:07)
[2024-01-30] MEDS ORDERED: PROMETHAZINE HCL 6.25 MG in SODIUM CHLORIDE 0.9% 50 ML IV PRN (14:07)
[2024-01-30] MEDS ORDERED: ONDANSETRON INJ 2 MG/ML 2 ML VIAL IV PRN ×2 (14:07→15:36)
[2024-01-30] MEDS ORDERED: ePHEDrine sulfate 50 MG/ML AMP IV PRN (14:07)
[2024-01-30] MEDS: fentaNYL citrate PF 100 MCG/2 ML VIAL IV PRN (14:15)
[2024-01-30] MEDS ORDERED: ALUMINUM/MAGNESIUM SUSP 30 ML UDC PO PRN (15:36)
[2024-01-30] MEDS ORDERED: diphenhydrAMINE Capsule 25 MG CAP PO PRN (15:36)
[2024-01-30] MEDS ORDERED: PHARMACY GLYCEMIC MGMT CONSULT PRN (15:36)
[2024-01-30] MEDS ORDERED: HYDROmorphone INJ 1 MG/ML SYRINGE IV PRN (15:36)
[2024-01-30] MEDS ORDERED: HYDROmorphone INJ 0.5 MG/0.5 ML SYR IV PRN (15:36)
[2024-01-30] MEDS ORDERED: PROMETHAZINE HCL 12.5 MG in SODIUM CHLORIDE 0.9% 50 ML IV PRN (15:36)
[2024-01-30] MEDS ORDERED: bisacodyL 10 MG SUPP PR PRN (15:36)
[2024-01-30] MEDS ORDERED: LORazepam 0.5 MG TAB PO PRN (15:36)
[2024-01-30] MEDS ORDERED: hydrOXYzine HCl 25 MG TAB PO PRN (15:36)
[2024-01-30] MEDS ORDERED: FLUTICASONE PROPIONATE NA SPR 16 GM BTL PRN (15:36)
[2024-01-30] MEDS ORDERED: METOCLOPRAMIDE HCL INJ 5 MG/ML 2 ML VIAL IV PRN (15:36)
[2024-01-30] MEDS ORDERED: NALOXONE HCL 0.4 MG/1 ML VIAL/CARP IV PRN (15:36)
[2024-01-30] MEDS ORDERED: FAMOTIDINE 20 MG TAB PO PRN (15:36)
[2024-01-30] MEDS ORDERED: ACETAMINOPHEN 500 MG TAB PO PRN (15:36)
[2024-01-30] MEDS ORDERED: HYDROCODONE/ACETAMOPHEN 5/325MG TAB PO PRN (15:36)
[2024-01-30] MEDS ORDERED: SOD PHOSPHATE/SOD BIPHOSPHATE ENEMA 132 ML BTL PR PRN (15:36)
[2024-01-30] MEDS ORDERED: GABAPENTIN 300 MG CAP PO PRN (15:36)
[2024-01-30] MEDS ORDERED: DO NOT ADMINISTER PNEUMOCOCCAL VACCINE PRN (15:36)
[2024-01-30] MEDS ORDERED: ACETAMINOPHEN 1,000 MG/100 ML VIAL IV PRN (15:36)
[2024-01-30] MEDS ORDERED: LORazepam 0.5 MG in SYRINGE 0.25 ML IV PRN (15:36)
[2024-01-30] MEDS ORDERED: DO NOT ADMINISTER FLU VACCINE PRN (15:36)
[2024-01-30] MEDS ORDERED: ONDANSETRON 4 MG OD TAB PO PRN (15:36)
[2024-01-30] MEDS: LACTATED RINGER'S 1,000 ML IV SCH (16:47)
[2024-01-30] MEDS: INSULIN ASPART PER UNIT CHARGE SC SCH (17:07)
--- NOTE | 2024-01-30 17:16 | Fluoroscopy Report ---
FL lumbar spine 2-3V CLINICAL HISTORY: L3-L4 DECOMPRESSION AND FUSION, L4-L5 HARDWARE REMOVAL COMPARISON STUDY: Lumbar spine fluoroscopic images December 24, 2018. FLUOROSCOPY TIME: 12 seconds. swetha Brenner: 8.44 mGy FLUOROSCOPIC IMAGES: 2 FINDINGS: Fluoroscopy was provided during hardware removal with subsequent L3-L4 discectomy, posterio r decompression and pedicle screw fusion. Discectomies at the L4-L5 and L5-S1 levels are again noted. IMPRESSION: Fluoroscopy provided during hardware removal and subsequent L3-L4 discectomy, posterior decompression and pedicle screw fusion. ACT 112: Negative or not required by law. Electronically signed by: Leander Thomas M.D. 01/30/2024 5:14 PM
--- NOTE | 2024-01-30 17:40 | Consultation ---
Date of Consultation January 30, 2024 Assessment & Plan (1) Spinal stenosis, lumbar region with neurogenic claudication: (2) S/P lumbar spine operation: Nic Márquez is a 64 y/o M with PMHx of gout, dyslipidemia, prediabetes, HTN and other problems listed below who was referred to us by Dr. Giles for post- operative medical management. Patient is s/p L3-L4 decompression and fusion, hardware removal L4-L5 for treatment of lumbar spinal stenosis w/ neurogenic claudication. POD#0, EBL: 150mL -Activity and wound care orders as per ortho -Pain control with bowel regimen as per ortho -PT/OT consults -Monitor H/H for acute blood loss anemia and transfuse blood products PRN -CMP and CBC in AM as per ortho -Continue gabapentin -Terrell in place, good urine output (3) Prediabetes: -Hgb A1C 5.9 on 12/15/22 -POC glucose 134 around 4pm -Hold metformin -Glycemic pharmacy consulted by ortho -SSI regimen in place -BSG checks ACHS -Repeat Hgb A1C in AM (4) Hypertension: -Continue losartan (5) Hyperlipidemia: -Continue statin therapy (6) Seasonal allergies: -Continue fexofenadine, Flonase DVT Prophylaxis: TEDs/SCDs as per ortho Code Status: Full Code PCP: Paco Sena III, MD Dispo: Admitted in Med/Surg Patient seen in collaboration with Dr. De León. Please see addendum. I spent a total of 75 minutes coordinating, documenting, and providing care for this patient excluding time spent in the performance of separately billed services. This included personally reviewing all current laboratories and imaging studies, medical reconciliation, outpatient chart review and discussion with specialists. This chart was completed in part utilizing Speech Voice Recognition Software. Grammatical errors, random word insertions, pronoun errors, and incomplete sentences are an occasional consequence of this system due to software limitations, ambient noise, and hardware issues. Any formal questions or concerns about the content, text, or information contained within the body of this dictation should be directly addressed to the provider for clarification. Supervising Physician Co-Signing Physician Notes 64 yo M w/ pmh of gout, HLD, prediabetes, HTN who is s/p lumbar Sx is seen as medical consult. pt hemodynamically stable. Reports improvement in ble radicular symptoms (r>l prior to sx). no recent acute illness. On exam: RA, stable, low back dressing c/d/i, ANIL drain w/ mod collection. rest of the exam as above. I have seen and examined the patient and have discussed the case with the provider above. I agree with the assessment and plan as stated. History of Present Illness Requesting Physician: Cyril Giles DO Reason for Consultation: Post-Operative Medical Management Attending Physician: Cyril Giles DO History of Present Illness Nic Márquez is a very pleasant 64 y/o M with PMHx of gout, dyslipidemia, prediabetes, HTN and other problems listed below who was referred to us by Dr. Giles for post-operative medical management. History obtained from patient and chart review. Patient is s/p L3-L4 decompression and fusion, hardware removal L4-L5 for treatment of lumbar spinal stenosis w/ neurogenic claudication. Patient seen at bedside. Currently not reporting any pain, only very mild discomfort. Denies any chest pain, SOB, abdominal pain/discomfort, headaches or lightheadedness/dizziness. Has Terrell catheter in place, good urine output noted. No yet moved out of bed. Has no concerns at this time, states he is doing well so far. Allergies Allergy/AdvReac Type Severity Reaction Status Date / Time methylprednisolone Allergy Severe Tachycardia Verified 01/30/24 10:37 prednisone Allergy Severe Tachycardia Verified 01/30/24 10:37 morphine Allergy Intermediate tachycardia, Verified 01/30/24 10:37 htn carbamazepine Allergy Mild unsure Verified 01/30/24 10:37 levofloxacin Allergy Mild torn Verified 01/30/24 10:37 ligament and tendon oxycodone [From Roxicodone] Allergy Mild shortness Verified 01/30/24 10:37 of breath Home Medications Medication Instructions Recorded Confirmed Type fexofenadine 180 mg tablet 180 mg PO HS 11/27/18 01/30/24 History (Caty Allergy) gabapentin 300 mg capsule 300 mg PO TID PRN Pain 11/27/18 01/30/24 History metformin 500 mg 24 hr 1,000 mg PO HS 11/27/18 01/30/24 History tablet,extended release (gastric retention) tramadol 50 mg tablet 50 mg PO Q4H PRN Pain, Moderate 12/25/18 01/30/24 Rx #30 tabs ascorbic acid (vitamin C) 500 mg 500 mg PO QAM 01/18/24 01/30/24 History tablet (Vitamin C) atorvastatin 20 mg tablet 20 mg PO HS 01/18/24 01/30/24 History candesartan 32 mg tablet (Atacand) 32 mg PO QAM 01/18/24 01/30/24 History cholecalciferol (vitamin D3) 25 25 mcg PO QAM 01/18/24 01/30/24 History mcg (1,000 unit) chewable tablet (Vitamin D3) fluticasone propionate 50 1 spray intranasal DAILY PRN 01/18/24 01/30/24 History mcg/actuation nasal allergies spray,suspension vitamin K2 (MK-4) 100 mcg tablet 400 mcg PO QAM 01/18/24 01/30/24 History Patient History Medical History History of anemia Prediabetes On Metformin Last Hgb A1C per [facility] records 10/2023 was 6.1 Spinal stenosis, lumbar Hx of sinus tachycardia 2009- due to morphine 2018 - possibly due to methylprednisone vs oxycodone- post op from lumbar surgery- also had (per cardio likely vasovagal) syncope- admitted to ICU, no issues since Chronic back pain Hypertension Hyperlipidemia Surgical History Hx of colonoscopy H/O inguinal hernia repair (02/03/22) [facility] repair Dr. Kristine Chandler Hx of repair of right rotator cuff (1989) History of discectomy (2003) lumbar Fusion of spine (2018) fusion x 2 2009 and 2019 Family History Father Lung cancer Mother Enlarged heart Social History Smoking Status: Never smoker Second Hand Exposure: No; Do You Dip or Chew Tobacco: No; Tobacco Cessation Education Requested by Patient: No Hx Alcohol Use: Yes Alcohol type: beer, wine and hard liquor Hx Substance Use: No Preferred Language: Czech Communication Ability: Effective Integrity Manager Required: No Beliefs That Will Affect Care: None Current Living Situation: Spouse Other Information That Helps Us Care for You: No Feels Safe at Home: Yes Safety Concerns: Feels Safe At This Time Assistive Devices: Glasses Assistive Devices Comment: readers Review of Systems Review of Systems: At least ten systems reviewed and negative, except as noted in the HPI. Physical Exam Physical Exam: General Appearance: Vitals as above. Resting in bed comfortably, no acute di stress. Very pleasant, conversing without difficulty. Head: Normocephalic, atraumatic. Eyes: Normal inspection, PERRL, conjunctivae normal, anicteric sclerae. ENT: External ear and nose normal, oropharynx normal Neck: Normal visual inspection, trachea midline, no thyromegaly Respiratory: Normal respiratory effort, lungs clear to auscultation, no wheeze, rales, rhonchi. No accessory muscle use. Cardiovascular: Regular rate, rhythm, no murmur, normal peripheral pulses, no BLE edema. Vessels: No JVD. Chest: Normal inspection of chest. Abdomen/GI: Normal bowel sounds, soft, nontender, no hepatosplenomegaly. Extremities/Musculoskeletal: No cyanosis or clubbing. ANIL drain with some minor bloody output, not full. Neurologic: PERRL, EOMI, accommodation nl, no face palsy, no dysarthria, CN's II-XI not formally tested but appear grossly intact bilaterally. Psychiatric: A+Ox3, euthymic affect. Skin: No rashes, normal color, warm/dry. Results & Data Vital Signs (Past 12 Hours) Vital Signs Temp Pulse Pulse Resp BP Pulse Ox O2 Del Method 01/30/24 17:05 36.4 C L 95 H 16 154/73 H 95 Room Air 01/30/24 16:08 36.8 C 84 16 153/81 H 96 Room Air 01/30/24 15:37 36.4 C L 93 H 16 149/72 H 97 Room Air 01/30/24 15:05 36.6 C 90 16 152/79 H 95 Room Air 01/30/24 14:45 93 H 12 140/75 95 Room Air 01/30/24 14:30 97 H 18 146/79 H 94 Room Air 01/30/24 14:20 98 H 15 142/72 H 97 Room Air 01/30/24 14:10 99 H 12 120/72 100 Room Air 01/30/24 14:00 91 H 15 121/63 100 Oxymask 01/30/24 13:51 36.3 C L 88 15 118/67 97 Oxymask 01/30/24 10:41 36.8 C 82 18 155/82 H 95 Room Air O2 Flow Rate 01/30/24 17:05 01/30/24 16:08 01/30/24 15:37 01/30/24 15:05 01/30/24 14:45 01/30/24 14:30 01/30/24 14:20 01/30/24 14:10 01/30/24 14:00 5 01/30/24 13:51 5 01/30/24 10:41 Diagnostic Findings Lumbar Spine X-Ray 01/30/24 12:15 FL lumbar spine 2-3V CLINICAL HISTORY: L3-L4 DECOMPRESSION AND FUSION, L4-L5 HARDWARE REMOVAL COMPARISON STUDY: Lumbar spine fluoroscopic images December 24, 2018. FLUOROSCOPY TIME: 12 seconds. Ka, r: 8.44 mGy FLUOROSCOPIC IMAGES: 2 FINDINGS: Fluoroscopy was provided during hardware removal with subsequent L3-L4 discectomy, posterior decompression and pedicle screw fusion. Discectomies at the L4-L5 and L5-S1 levels are again noted. IMPRESSION: Fluoroscopy provided during hardware removal and subsequent L3-L4 discectomy, posterior decompression and pedicle screw fusion. ACT 112: Negative or not required by law. Electronically signed by: Leander Thomas M.D. 01/30/2024 5:14 PM Medications Administered Acetaminophen (Acetaminophen 500 Mg Tab) 1,000 mg PO PREOP TAYO Stop: 01/30/24 18:00 Last Admin: 01/30/24 10:34 Dose: 1,000 mg Documented By: EAC Celecoxib (Celebrex 200 Mg Cap) 200 mg PO PREOP TAYO Stop: 01/30/24 18:00 Last Admin: 01/30/24 10:34 Dose: 200 mg Documented By: EAC Fentanyl Citrate (Fentanyl Citrate Pf 100 Mcg/2 Ml Vial) 50 mcg IV Q5M PRN PRN Reason: PACU Use Only-Pain Stop: 01/30/24 22:07 Last Admin: 01/30/24 14:25 Dose: 50 mcg Documented By: Admin: 01/30/24 14:15 Dose: 50 mcg Documented By: SED Gabapentin (Gabapentin 600 Mg Dose) 600 mg PO PREOP TAYO Stop: 01/30/24 18:00 Last Admin: 01/30/24 10:34 Dose: 600 mg Documented By: KARIS Lactated Ringer's (Lr) 1,000 mls @ 15 mls/hr IV .Q24H TAYO Stop: 01/31/24 05:59 Last Infusion: 01/30/24 11:49 Dose: Infused Documented By: Admin: 01/30/24 10:26 Dose: 15 mls/hr Documented By: KARIS Lactated Ringer's (Lr) 1,000 mls @ 60 mls/hr IV .[id number] [facility] Stop: 01/30/24 22:39 Last Admin: 01/30/24 10:26 Dose: Not Given Documented By: KARIS Vancomycin HCl 1,250 mg/ (Sodium Chloride) 275 mls @ 200 mls/hr IV PREOP [facility] Stop: 01/30/24 18:00 Last Infusion: 01/30/24 15:59 Dose: Infused Documented By: EAC(2) Admin: 01/30/24 10:27 Dose: 200 mls/hr Documented By: KARIS Lactated Ringer's (Lr) 1,000 mls @ 100 mls/hr IV .Q10H TAYO Stop: 02/29/24 15:44 Last Admin: 01/30/24 16:47 Dose: 100 mls/hr Documented By: KARIS(2) Insulin Aspart (Insulin Aspart Per Unit Charge) 0 units SC ACHS [facility] Stop: 02/29/24 16:29 Last Admin: 01/30/24 17:07 Dose: 2 units Documented By: EAC(2) Co-signed By: TLG Discontinued Medications Bupivacaine HCl/Epinephrine Bitart (Bupivacaine/Epinephrine 0.25% 1:200,000 30 Ml Vial) Confirm Administered Dose 30 ml .ROUTE .STK-MED ONE Stop: 01/30/24 11:35 Last Admin: 01/30/24 12:31 Dose: 15 ml Documented By: GMVeronica Cefazolin Sodium (Cefazolin 330 Mg/Ml 1 Gm Vial) Confirm Administered Dose 990 mg .ROUTE .STK-MED ONE Stop: 01/30/24 11:35 Last Admin: 01/30/24 12:31 Dose: 990 mg Documented By: GMVeronica Miscellaneous ( Floseal Hemostatic Matrix 10ml) 10 ml TOP ONCE ONE Stop: 01/30/24 12:32 Last Admin: 01/30/24 13:27 Dose: 8 ml Documented By: YG (4) Hypertension Hypertension type: unspecified Qualified Code(s): I10 - Essential (primary) hypertension (5) Hyperlipidemia Hyperlipidemia type: unspecified Qualified Code(s): E78.5 - Hyperlipidemia, unspecified
[2024-01-30] MEDS: ceFAZolin 2000MG 2,000 MG/15 ML SYR IV SCH (21:04)
[2024-01-30] MEDS: KETOROLAC 30 MG/ML VIAL IV SCH (21:04)
[2024-01-30] MEDS: FEXOFENADINE HCL 180 MG TAB PO SCH (21:05)
[2024-01-30] MEDS: DOCUSATE SODIUM/SENNA 50/8.6MG TAB PO SCH (21:05)
[2024-01-30] MEDS: ATORVASTATIN 20 MG TAB PO SCH (21:05)
[2024-01-31] MEDS: POLYETHYLENE (MIRALAX) 17 GM PACK PO SCH (05:00)
[2024-01-31 06:12] LABS: Basophils # (auto) 0.01 K/uL (0.00-0.20); Basophils % (auto) 0.1 %; Hematocrit (blood only) 39.1 % (42.0-52.0); Immature Granulocytes # (auto) 0.05 K/uL (0.01-0.20); Immature Granulocytes % (auto) 0.6 %; Lymphocytes # (auto) 1.17 K/uL (1.20-3.40); Lymphocytes % (auto) 13.6 %; Mean Corpuscular Hemoglobin 30.2 pg (25.0-34.0); Mean Corpuscular Hgb Conc 33.2 g/dL (32.0-36.0); Mean Corpuscular Volume 90.7 fL (80.0-100.0); Mean Platelet Volume 9.1 fL (9.4-12.4); Monocytes # (auto) 0.74 K/uL (0.11-0.59); Monocytes % (auto) 8.6 %; Neutrophils # (auto) 6.65 K/uL (1.40-6.50); Neutrophils % (auto) 77.1 %; Platelet Count 231 K/uL (130-400); RDW Coefficient of Variation 12.6 % (11.5-14.5); RDW Standard Deviation 42.2 fL (36.4-46.3); Red Blood Count 4.31 M/uL (4.70-6.10); White Blood Count 8.62 K/ul (4.8-10.8)
[2024-01-31 06:25] LABS: BUN Creatinine Ratio 12.9 (10-20); Calcium 9.3 mg/dl (8.6-10.3); Creatinine Clr Calc Pharmacy 70.6 ml/min; Est GFR (African American) 76.7 ml/min; Est GFR (Non-African American) 66.2 ml/min; Potassium 4.4 mmol/L (3.5-5.1)
[2024-01-31 07:19] LABS: Estimated Average Glucose 131 mg/dl; Hemoglobin A1C 6.2 % (4.5-5.6)
--- NOTE | 2024-01-31 08:06 | Pharmacy Report ---
Pharmacy Glycemic Short Note 2 - Date of Service January 31, 2024 - Glycemic Short BSG Results (Last 24 hours): 01/30/24 01/30/24 01/30/24 10:36 16:21 20:35 Glucose POC Glucose 108 H 134 H 137 H 01/31/24 01/31/24 05:30 07:43 Glucose 125 H POC Glucose 109 H OUTPATIENT ANTIDIABETIC REGIMEN: * Metformin 1000mg PO HS * A1c 6.2% 01/31/24 ASSESSMENT: * 64 yo M POD1 L3-L4 decompression and fusion, type 2 DM, received Dexamethasone 8mg IV x 1 yesterday, no further steroids ordered. * Euglycemic, received 2 units of carb coverage insulin yesterday. Continue with NovoLog only and loosen parameters if BSGs trend below goal as steroids wear off. PLAN FOR INPATIENT GLYCEMIC CONTROL: * Hold outpatient oral diabetes medications * Basal insulin * None * Bolus insulin * NovoLog per scale ACHS or Q6hrs while NPO * Goal Range: Low 110 mg/dL - High 140 mg/dL * Correction Factor: 30 mg/dL/unit * Nutritional / Prandial insulin per carb ratio of 1 unit per 10 grams CHO consumed
--- NOTE | 2024-01-31 08:32 | Orthopedic Progress Note ---
Date of Service January 31, 2024 Assessment & Plan (1) Spinal stenosis, lumbar region with neurogenic claudication: Plan: At this time we will initiate physical therapy monitor his ANIL operatively discharged home in the next few days. Admission and Anticipated Discharge Date Admission Date: January 30, 2024 Subjective Patient's back pain is controlled leg symptoms improved. Physical Exam Physical Exam: Patient is seen in bed peers comfortable. Good strength testing. Results & Data Vital Signs (Past 12 Hours) Vital Signs Temp Pulse Resp BP Pulse Ox O2 Del Method 01/31/24 08:18 37.0 C 76 16 167/82 H 98 Room Air 01/31/24 03:53 37.0 C 68 16 145/80 H 99 Room Air 01/30/24 23:57 36.5 C 76 15 149/75 H 97 Room Air
--- OUTSIDE RECORDS SUMMARY | 2024-01-31 08:35 | External Medical Summary | Summary of Care ---
Author Name Unknown Organization [facility] Address [address] [place] [address] Phone [phone] Care Team Providers Care Boiler Attendant Name Role Phone Jaida ALCARAZ MD, Paco Shankar Primary Care Provider [phone] Reason for Visit * Reason Comments Physical-Exam Encounter Details Date Type Department Care Team (Late st Contact Info) Description 01/24/2024 7:20 AM EDT Office Visit Family Practice [facility] [address] [place] [address] Nelsy Camara, [address] [place] [address] Dyslipidemia, goal LDL below 100*; Prediabetes Allergies Active Allergy Reactions Criticality Noted Date Comments Carbamazepine 11/07/2005 Abdominal and kidney pain, swollen lymph nodes Levofloxacin Other (Please comment) 02/01/2011 Pain in Achilles Methylprednisolone 01/31/2022 Tachycardia hypertension Morphine Sulfate Hypertension,Tachyca r bibiana 09/09/2009 Oxycodone Tachycardia 01/01/2019 HTN, Tachycardia Prednisone Hypertension,Tachyca r bibiana 11/20/2023 documented as of this encounter (statuses as of 01/29/2024) Medications Medication Sig Dispensed Refills Start Date End Date Status CARLEE 180 MG PO TABSIndications:A llergic rhinitis One tablet daily 90 Tab 3 1 Active Additional Information Patient taking differently: 180 mgOralHS, Reported on 03/15/2023 Vitamin D3 250 MCG (08010 UT) Oral Capsule Take 1 Capsule by mouth daily at noon. Active Fish Oil Double Strength 1200 MG Oral Capsule Take by mouth 2,500 mg daily at noon . Active Fluticasone Propionate 50 MCG/ACT Nasal Suspension (Flonase) Administer 1 Clinton into nostril in the morning. Active Atorvastatin Calcium 20 MG Oral Tablet (Lipitor) Take 1 Tablet by mouth in the morning. 90 Tablet 5 3 Active Cyclobenzaprine HCl 10 MG Oral Tablet (Flexeril) TAKE 1 TABLET BY MOUTH 2 TIMES A DAY NEEDED FOR MUSCLE SPASMS. 20 Tablet 3 Active Meloxicam 15 MG Oral Tablet Take 1 Tablet by mouth in the morning. for pain.. 30 Tablet 5 3 Active traZODone HCl 50 MG Oral Tablet (Desyrel) 1/2-1 tab at bedtime as needed sleep 90 Tablet 3 3 Active traMADol HCl 50 MG Oral Tablet (Ultram)Indicatio ns:Lumbar radicular pain Take 1 Tablet by mouth every 8 hours as needed for Pain, Severe. 28 Tablet 4 Active Candesartan Cilexetil 32 MG Oral Tablet (Atacand) TAKE 1 TABLET BY MOUTH EVERY DAY 90 Tablet 3 4 Active metFORMIN HCl ER 500 MG Oral Tablet Extended Release 24 Hour (Glucophage XR)Indications:El evated fasting glucose TAKE 2 TABLETS BY MOUTH EVERY DAY 180 Tablet 3 4 Active Gabapentin 300 MG Oral Capsule (Neurontin)Indica tions:Sciatica TAKE 1 CAP (300 MG) IN THE MORNING AND 1 CAP (300 MG) AT NOON AND 1 CAP (300 MG) BEFORE BEDTIME. 270 Capsule 3 4 Active clonazePAM 1 MG Oral Tablet (KlonoPIN) TAKE 1 TABLET BY MOUTH EVERYDAY AT BEDTIME 90 Tablet 3 01/24/20 24 Discontinued Ketorolac Tromethamine 10 MG Oral Tablet (Toradol)Indicati ons:Sprain of sacroiliac region, initial encounter Take 1 Tablet by mouth 4 times a day as needed for Pain, Moderate. Do not take for longer than 5 days 20 Tablet 3 01/24/20 24 Discontinued tiZANidine HCl 2 MG Oral Tablet (Zanaflex)Indicat ions:Sprain of sacroiliac region, initial encounter Take 1 Tablet by mouth every 6 hours as needed for Muscle spasms. 30 Tablet 3 01/24/20 24 Discontinued documented as of this encounter (statuses as of 01/29/2024) Active Problems Problem Noted Date Diagnosed Date Closed fracture of right elbow with routine heal ing 01/24/2024 Fractured elbow, left, sequela 01/24/2024 Diabetes mellitus without complication Prediabetes 10/02/2017 Overview: Per Prediabetes protocol #1 Gout 11/09/2005 ADVANCE DIRECTIVE INFORMATION 06/28/2005 Overview: No, Advance Directive brochure given to patient at prior appointment. SCIATICA right lower extremity 07/05/2003 Vasectomy status 01/13/2003 Compound nevus, lentigo like, Upper rt back 06/2207/30/2002 Compound nevus, lentigo like, Mid back 06/22/97 1 09/30/2001 Dysplastic compound nevus, Mid back 03/25/0107/30 [facility] 03/13/2002 compound dysplastic nevus, lt back 03/14/0203/13 Chronic sinusitis 12/21/2001 ALLERGIC RHINITIS - MIXED TYPE 12/21/2001 DYSFUNCT EUSTACHIAN TUBE 12/21/2001 Dyslipidemia, goal LDL below 100 Achilles tendinitis Overview: s/p PRP injections documented as of this encounter (statuses as of 01/29/2024) Resolved Problems Problem Noted Date Diagnosed Date Resolved Date Chronic kidney disease, stage 3a 12/28/2020 12/08/2021 Overview: Per CKD protocol documented as of this encounter (statuses as of 01/29/2024) Immunizations Name Administration Dates Next Due COVID-19 Whole Virus, Stephens Vac, 2-Dose Series (Baiyaxuan) 12/03/2020,11/05/2020 COVID-19, mRNA, LNP-s, PF, B ooster, 100mcg/0.5mg (Moderna) 06/15/2021 H1N1 2009 Influenza, IM 09/09/2009 Pneumococcal Conjugate Vacci ne, 20-valent ([id number]) 06/15/2022 Seasonal Influenza, PF, 6 M & above, IM , (FluLaval or Fluzone) 05/22/2023,06/15/2022,06/09/2021,2019 Seasonal Influenza, Split, I IV3, With Preserve, Inj 05/23/2013 TDAP (age 10 and older)(Boostrix) 06/24/2017 TDAP, Age 7 and older, IM (Adacel) 01/31/2011 Zoster Vaccine Recombinant (Shingrix) 04/14/2019 ,01/01/2019 documented as of this encounter Social History Tobacco Use Types Packs/Day Years Used Date Smoking Tobacco: Never Smokeless Tobacco: Never Alcohol Use Standard Drinks/Week Comments Yes 0 (1 standard drink = 0.6 oz pur e alcohol) occ PHQ-2 Answer Date Recorded PHQ Adult Total Score 0 06/15/2022 Hunger Vital Sign Answer Date Recorded Within the past 12 months, y ou worried that your food would run out before you got the money to buy more. Never true 11/24/19 21 Within the past 12 months, t he food you bought just didn't last and you didn't have money to get more. Never true 11/23/2020 Sex and Gender Information Value Date Recorded Sex Assigned at Male 01/01/2019 10:50 AM EDT Gender Identity Male 01/01/2019 10:50 AM EDT Sexual Orientation Straight 01/01/2019 10 :50 AM EDT Job Start Date Occupation Industry Not on file Not on file Not on file documented as of this encounter Last Filed Vital Signs Vital Sign Reading Time Taken Comments Blood Pressure 126/72 01/24/2024 7:12 AM EDT Pulse 90 01/24/2024 7:12 AM EDT Temperature 36.6 C (97.8 F) 01/24/2024 7:12 AM ED T Respiratory Rate 17 01/24/2024 7:12 AM EDT Oxygen Saturation 98% 01/24/2024 7:12 AM EDT Inhaled Oxygen Concentration - - Weight 84.8 kg (187 lb 0.6 oz) 01/24/2024 7:12 A M EDT Height 184 cm (6' 0.44") 01/24/2024 7:12 AM EDT Body Mass Index 25.06 01/24/2024 7:12 AM EDT documented in this encounter Progress Notes * Nelsy Camara, DO - 01/24/2024 7:26 AM EDT Images from the original note were not included. Subjective: Nic Márquez is a 64 year old male. Presents at the request of Dr. Giles for medical clearance for L3-L4 Decompression and Fusion, Hardware removal L4-5. 01/30/2024 at [facility], for burning pain R worse than left with numbness and muscle weakness, worse over the last 6 months. Patient's past medical, surgical, family, and social history were reviewed. Medications, allergies, immunizations, and health care maintenance screenings were also reviewed. BP well controlled, FBS 100-110. Takes metformin, follows diabetic diet, exercises as tolerated. This will be his 4th back surgery PHM: Patient Active Problem List Diagnosis Chronic sinusitis ALLERGIC RHINITIS - MIXED TYPE DYSFUNCT EUSTACHIAN TUBE [facility] compound dysplastic nevus, lt back 03/14/02 Compound nevus, lentigo like, Upper rt back 06/22/97 Compound nevus, lentigo like, Mid back 06/22/97 Dysplastic compound nevus, Mid back 03/25/01 Vasectomy status SCIATICA right lower extremity ADVANCE DIRECTIVE INFORMATION Gout Dyslipidemia, goal LDL below 100 Achilles tendinitis Prediabetes Diabetes mellitus without complication (HCC) Closed fracture of right elbow with routine healing Fractured elbow, left, sequela Current Outpatient Medications Medication Sig Dispense Refill CARLEE 180 MG PO TABS One tablet daily (Patient taking differently: Take 1 Tablet by mouth at bedtime.) 90 Tab 3 Vitamin D3 250 MCG (09264 UT) Oral Capsule Take 1 Capsule by mouth daily at noon. Fish Oil Double Strength 1200 MG Oral Capsule Take by mouth 2,500 mg daily at noon . Fluticasone Propionate 50 MCG/ACT Nasal Suspension (Flonase) Administer 1 Clinton into nostril in themorning. Atorvastatin Calcium 20 MG Oral Tablet (Lipitor) Take 1 Tablet by mouth in the morning. 90 Tablet 5 Cyclobenzaprine HCl 10 MG Oral Tablet (Flexeril) TAKE 1 TABLET BY MOUTH 2 TIMES A DAY NEEDED FORMUSCLE SPASMS. 20 Tablet 0 Meloxicam 15 MG Oral Tablet Take 1 Tablet by mouth in the morning. for pain.. 30 Tablet 5 traZODone HCl 50 MG Oral Tablet (Desyrel) 1/2-1 tab at bedtime as needed sleep 90 Tablet 3 traMADol HCl 50 MG Oral Tablet (Ultram) Take 1 Tablet by mouth every 8 hours as needed for Pain, Severe. 28 Tablet 0 Candesartan Cilexetil 32 MG Oral Tablet (Atacand) TAKE 1 TABLET BY MOUTH EVERY DAY 90 Tablet 3 metFORMIN HCl ER 500 MG Oral Tablet Extended Release 24 Hour (Glucophage XR) TAKE 2 TABLETS BY MOUTH EVERY DAY 180 Tablet 3 Gabapentin 300 MG Oral Capsule (Neurontin) TAKE 1 CAP (300 MG) IN THE MORNING AND 1 CAP (300 MG) ATNOON AND 1 CAP (300 MG) BEFORE BEDTIME. 270 Capsule 3 No current facility-administered medications for this visit. Past Medical History: Diagnosis Date Achilles tendinitis s/p PRP injections ALLERGIC RHINITIS - MIXED TYPE 12/21/2001 Benign neoplasm of skin Degeneration of lumbosacral intervertebral disc Dyslipidemia, goal LDL below 100 SCIATICA right lower extremity 07/05/2003 Varicella without complication age 9 Vasectomy status 1994 Past Surgical History: Procedure Laterality Date ANESTHESIA FOR SHOULDER ARTHROSCOPY 1999 right shoulder, clavicle osteomoty, Dr Medrano COLONOSCOPY, DIAGNOSTIC (RECTUM) 09/10/2017 normal, repeat 10 yrs/COLONOSCOPY FLEXIBLE PROXIMAL DIAGNOSTIC performed by Dileep Estes MD at ENDOSCOPY [facility] [address] COLORECTAL CANCER SCREEN; NOT AT RISK 03/13/2011 neg INJECT DX/THER SUBSTANCE INTERLAMINAR LUMBAR/SACRAL W IMAGE GUIDE 09/26/2018 INJECTION SPINE LUMBAR OR SACRAL performed by Jr Harper DO at OR [facility] [address] LAMINOTOMY, SINGLE LUMBAR 2002 L5 S1 fragmented disk LAPAROSCOPY; REPAIR INITIAL INGUINAL HERNIA Right 02/03/2022 LAPAROSCOPIC REPAIR INGUINAL HERNIA INITIAL performed by Josh Carmona MD at [facility] LUMBAR SPINE FUSION W/BONE GRAFT 2018 L4-5 removal hardware MISCELLANEOUS ORDER (HS ONLY) Right 04/07/[facility] Dr Jimenez- right lower eyelid MOHS defect repair SPINAL FUSION, 6 OR LESS VERT, POST 2009 L5 S1 with decompression VASECTOMY 1994 Review of patient's allergies indicates: Allergen Reactions Carbamazepine Abdominal and kidney pain, swollen lymph nodes Levofloxacin Other (Please comment) Pain in Achilles Methylprednisolone Tachycardia hypertension Morphine Sulfate Hypertension and Tachycardia Oxycodone Tachycardia HTN, Tachycardia Prednisone Hypertension and Tachycardia Family History Problem Relation Name Age of Onset Cancer Father 61 lung, flour worker, smoker Diabetes Father NIDDM Cancer Grandfather (Paternal) lymph Heart Disorder Grandfather (Maternal) Heart Disorder Mother enlarged heart, CHF Diabetes Brother 47 Arthritis Mother Arthritis Grandmother (Maternal) Cancer Aunt (Unspecified) father's sister 75 colon, within 6 months Cancer Uncle (Unspecified) father's brother 79 colon Stroke None Renal Hx Mother kidney stones (several times) Stroke Brother Diabetes Sister breast cancer Endocrine Disorder Sister elevated fasting Neurological Disorder Mother dementia Other (Other) Mother denies any family history of skin diseases or skin cancer Family Status Relation Status Mo CHF Fa at age 62 lung cancer mesothieloma asbestos exposure, type II diabetes, smoker Bro Alive Bro Alive Sis Alive Sis Alive Edgar Alive Son Alive MGMA MGFA PGMA PGFA Bro (Not Specified) AUNT (Not Specified) UNCLE (Not Specified) NONE (Not Specified) Bro (Not Specified) Sis (Not Specified) Sis (Not Specified) Social History Tobacco Use Smoking status: Never Smokeless tobacco: Never Substance Use Topics Alcohol use: Yes Comment: occ Vaping/E-Cigarette Use Vaping/E-Cigarette Use Never User Passive Exposure No Counseling Given? No Vaping/E-Cigarette Substances Nicotine No Other No Flavoring No THC No Cannabidiol (CBD) No Vaping/E-Cigarette Devices Disposable No Pre-filled or Refillable Cartridge No Refillable Tank No Pre-filled Pod No Review of Systems: General: No change in weight, No weakness, No fatigue, and No fevers, sweats, or chills Head: No significant headache and No recent significant head injury Eyes: No recent significant change in vision, No eye pain, redness, discharge, or excessive tearing, No diplopia, and No h/o cataracts or glaucoma Ears: No recent change in hearing, No tinnitus or vertigo, No ear pain, and No ear discharge Nose: No h/o frequent colds or sinusitis, No nasal stuffiness, No h/o hay fever, and No significantepistaxis Throat/Oropharynx: No teeth or gum problems, No bleeding gums, No tongue complaints, No sore throat, and No recent change in voice or hoarseness Neck: No complaint of lumps in neck, No swollen glands, No recent swelling in thyroid area, and No significant pain in neck Respiratory: No cough, sputum, or hemoptysis, No wheezing, No shortness of breath, and No recent change in breathing Cardiac: No chest pain, No shortness of breath, No dyspnea on exertion, No orthopnea, No paroxysmalnocturnal dyspnea, No edema, No palpitations, and No syncope Gastrointestinal: No dysphagia, No significant heartburn, No significant change in appetite, No nausea, vomiting, diarrhea, or constipation, No hematemesis, No blood in stools or black tarry stools, No abdominal bloating or early satiety, and No abdominal pain Urinary: No urinary frequency, No dysuria, No hematuria, No urinary urgency, No polyuria, No nocturia, No incontinence, No hesitancy, and No sensation of incomplete voiding Objective: BP 126/72 | Pulse 90 | Temp 36.6 C (97.8 F) (Tympanic) | Resp 17 | Ht 1.84 m (6' 0.44") | Wt 84.8 kg (187 lb 0.6 oz) | SpO2 98% | BMI 25.06 kg/m | BSA 2.08 m Physical Exam: General: alert, healthy, and no distress Head: Normocephalic, No masses, lesions, tenderness or abnormalities Ears: External ears normal, Canals clear, TM's Normal Oropharynx: no exudate, no erythema, lips, buccal mucosa, and tongue normal, and mucous membranes are moist Neck: supple, no adenopathy, no bruits, thyroid normal size, non-tender, without nodularity Heart: regular rate & rhythm, no murmur, and no gallops Lungs: chest symmetric with normal AP diameter, no chest deformities noted, no chest wall tenderness, lungs clear to auscultation Pulses: carotid=2/4 w/o bruits Abdomen: abdomen soft, non-tender, normal bowel sounds, and no masses or organomegaly Extremities: less than 2 second capillary refill, no joint deformities, effusion, or inflammation Latest Reference Range & Units 06/15/22 10:29 12/15/22 07:18 03/15/23 15:17 03/15/23 15:19 03/23/23 14:41 03/30/23 09:58 04/11/23 12:59 05/16/23 11:15 06/14/23 13:54 10/05/23 09:06 11/12/23 08: 08:40 11/20/23 09:14 01/17/24 00:00 Triglycerides <=174 mg/dL 172 173 Cholesterol <200 mg/dL 202 (H) 168 Non-HDL Cholesterol <=159 mg/dL 157 126 HDL Cholesterol >39 mg/dL 45 42 LDL Cholesterol <=129 mg/dL 123 91 Sodium 135 - 146 mmol/L 138 136 138 Potassium 3.5 - 5.1 mmol/L 4.6 4.9 4.7 POTASSIUM-OUTSIDE LAB 3.5 - 5.1 MMOL/L 4.3 (E) Chloride 98 - 107 mmol/L 100 100 101 CO2 22 - 32 mmol/L 27 25 26 BUN 6 - 20 mg/dL 20 21 (H) 21 (H) Creatinine 0.6 - 1.2 mg/dL 0.9 1.5 (H) 1.3 (H) CREATININE-OUTSIDE LAB 0.6 - 1.4 MG/DL 1.20 (E) Estimated Glomerular Filtration Rate >=60 mL/min >90 53 (L) 63 EGFR-OUTSIDE LAB ML/MIN/1.73M2 64.0 (E) Anion Gap 7 - 15 mmol/L 11 11 11 Glucose 70 - 120 mg/dL 107 110 115 GLUCOSE-OUTSIDE LAB 70 - 99 MG/DL 101 ! (E) Calcium 8.4 - 10.2 mg/dL 10.1 10.0 9.7 Protein 6.0 - 8.3 g/dL 6.9 Estimated Average Glucose <126 mg/dL 126 (H) 123 128 (H) 25-Hydroxy Vitamin D >19 ng/mL 57 25-HYDROXY VITAMIN D Rpt Hemoglobin A1C 4.0 - 5.6 % 6.0 (H) 5.9 (H) 6.1 (H) CBC Rpt WBC 4.00 - 10.80 K/uL 6.23 RBC 4.50 - 5.25 M/uL 5.12 HGB 14.0 - 18.0 G/DL 15.7 15.1 (E) HCT 40.0 - 48.4 % 48.3 MCV 82.0 - 99.5 fL 94.3 MCH 27.0 - 34.0 pg 30.7 MCHC 32.0 - 36.0 g/dL 32.5 RDW 11.5 - 15.5 % 13.2 PLT 140 - 400 K/uL 269 MPV 6.6 - 11.1 fL 9.6 Vitamin B12 232 - 1,245 pg/mL 410 672 Albumin 3.8 - 5.0 g/dL 4.4 AST 10 - 50 U/L 36 ALT 10 - 50 U/L 43 Alkaline Phosphatase 35 - 130 U/L 61 Bilirubin, Total <=1.2 mg/dL 0.4 PSA <4.10 ng/mL 0.22 PROTEIN, UA-OUTSIDE LAB NEGATIVE NEGATIVE (E) Albumin / Creatinine Ratio, Urine <30 mg/g Creat <29 <8 Albumin, Random Urine mg/dL <1.20 <1.20 Creatinine, Random Urine mg/dL 42 155 XR CHEST 2 VIEWS Rpt (E) XR ELBOW 3 OR MORE VIEWS Rpt Rpt Rpt Rpt Rpt XR HIP UNILAT 2-3 VIEWS INCLUDING AP PELVIS Rpt XR WRIST 3 OR MORE VIEWS Rpt EKG Rpt ALBUMIN / CREATININE RATIO, URINE Rpt Rpt EKG 01/17/24 ASSESSMENT: Diagnosis for procedure: Lumbar radiculopathy with pain, numbness, weakness Preoperative Examination PLAN: Patient is medically cleared. Perioperative recommendations regarding medications and treatment include routine care, avoid all steroids, opioids with caution. This assessment was forwarded to Dr. Giles. 40 min spent with patient, reviewing history, performing physical exam, reviewing labs, studies, specialist OVNs, and reports, educating and coordinating care, discussing treatment, and completing this note Nelsy Camara DO documented in this encounter Nursing Notes * Ruth Spangler LPN - 01/24/2024 7:10 AM EDT Nic Miller Márquez presents for pre op physical exam. Medications & HM reviewed. documented in this encounter Plan of Treatment Upcoming Encounters Date Type Department Care Team (Late st Contact Info) Description 05/26/2024 9:40 AM EDT Office Visit [facility] [place] [address] [facility] [address] Jaida Paco ALCARAZ MD [address] [place] [id number] Scheduled Procedures Name Priority Associated Diagnoses Date/Ti me COLONOSCOPY FLEXIBLE PROXIMA L DIAGNOSTIC Recall Encounter for screening colonoscopy Health Maintenance Due Date Last Done Comments Cologuard 01/21/2005 Fecal Occult Blood Test 01/21/2005 Sigmoidoscopy 01/21/2005 COVID-19 Vaccine ( season) 2023 06/15/2021, 12/03/2020, 11/05/2020 Depression Screening 06/15/2023 06/15/2022 Diabetic Foot Exam 06/15/2023 06/15/2022 Diabetic Eye Exam 04/13/2024 04/13/2023, , 03/29/2021, Additional history exists HbA1c 05/14/2024 11/12/2023, 11/19, 06/15/2022, Additional history exists Albumin/Creatinine Ratio 11/11/2024 024, 06/15/2022, 07/08/2021 B-12 11/11/2024 11/12/2023, 05/21, 04/27/2021, Additional history exists GFR 01/16/2025 01/17/2024, 10/19, 12/15/2022, Additional history exists DTaP,Tdap,and Td Vaccines (3 - Td or Tdap) 06/24/2027 06/24/2017, 01/31/2011, 06/15/2000 Colonoscopy 09/10/2027 09/10/2017, 08/21, 03/13/2011 Colorectal Cancer Screening 09/10/2027 Lipid Panel 11/11/2028 11/12/2023, 11/19, 04/27/2021, Additional history exists Zoster Vaccines Completed 04/14/2019, 01/01/2019 Pneumococcal Vaccine: Pediatrics (0 to 5 Years) and At-Risk Patients (6 to 64 Years) Completed 06/15/2022 Influenza Vaccine (FLU shot) Completed 10/2022, 06/15/2022, 06/09/2021, Additional history exists GARDASIL-HPV IMMUNIZATION SERIES Aged Out No longer eligible based on patient's age to complete this topic Hepatitis B Aged Out No longer eligi ble based on patient's age to complete this topic MENINGOCOCCAL (MENACTRA/MENVEO) Aged Out No longer eligible based on patient's age to complete this topic documented as of this encounter Medical Devices Implanted Type Area Medical Cash Poster Device Identifier Shelf Expiration Date Model / Serial / Lot Mesh 3dmax 3.1x5.3in Rht Med - [id number] Implanted:Qty: 1 on 02/03/2022 by Josh Carmona MD at OR [facility] [address] Right: Abdomen CR BARD : DAVOL 07/17/2025 [id number] / / [id number] Description:Right inguinal a john documented as of this encounter Visit Diagnoses Diagnosis Dyslipidemia, goal LDL below 100- Primary Other and unspecified hyperlipidemia Prediabetes Other abnormal glucose documented in this encounter Advance Directives * Full Code (Latest Code Status on File) Date Activated Date Inactivated Comments 02/03/2022 11:40 AM 02/03/2022 8:12 PM This order reflects the patients wishes and were consensually agreed upon. Care Teams Boiler Attendant Relationship Specialty Start Date End Date Paco Sena III, MD [address] [facility] [place] [address] PCP - General 04/03/1996 documented as of this encounter
--- OUTSIDE RECORDS SUMMARY | 2024-01-31 08:35 | External Medical Summary | Summary of Care ---
Author Name Unknown Organization [facility] Address [address] [place] [address] Phone [phone] Care Team Providers Care Case Worker Name Role Phone Jaida ALCARAZ MD, Paco Shankar Primary Care Provider [phone] Reason for Visit * Reason Comments Physical-Exam Encounter Details Date Type Department Care Team (Late st Contact Info) Description 01/24/2024 7:20 AM EDT Office Visit Family Practice [facility] [address] [place] [address] Nelsy Camara, [address] [place] [address] Dyslipidemia, goal LDL below 100*; Prediabetes Allergies Active Allergy Reactions Criticality Noted Date Comments Carbamazepine 11/07/2005 Abdominal and kidney pain, swollen lymph nodes Levofloxacin Other (Please comment) 02/01/2011 Pain in Achilles Methylprednisolone 01/31/2022 Tachycardia hypertension Morphine Sulfate Hypertension,Tachyca r bibiana 09/09/2009 Oxycodone Tachycardia 01/01/2019 HTN, Tachycardia Prednisone Hypertension,Tachyca r bibiana 11/20/2023 documented as of this encounter (statuses as of 01/25/2024) Medications Medication Sig Dispensed Refills Start Date End Date Status CARLEE 180 MG PO TABSIndications:A llergic rhinitis One tablet daily 90 Tab 3 1 Active Additional Information Patient taking differently: 180 mgOralHS, Reported on 03/15/2023 Vitamin D3 250 MCG (14985 UT) Oral Capsule Take 1 Capsule by mouth daily at noon. Active Fish Oil Double Strength 1200 MG Oral Capsule Take by mouth 2,500 mg daily at noon . Active Fluticasone Propionate 50 MCG/ACT Nasal Suspension (Flonase) Administer 1 [place] into nostril in the morning. Active Atorvastatin [...] as of this encounter (statuses as of 01/25/2024) Active Problems Problem Noted Date Diagnosed Date [...] as of this encounter (statuses as of 01/25/2024) Resolved Problems Problem Noted Date Diagnosed Date Resolved Date Chronic kidney disease, stage 3a 12/28/2020 12/08/2021 Overview: Per CKD protocol documented as of this encounter (statuses as of 01/25/2024) Immunizations Name Administration Dates Next Due COVID-19 Whole Virus, Stephens Vac, 2-Dose Series (Keen Impressions) 12/03/2020,11/05/2020 COVID-19, mRNA, LNP-s, PF, B ooster, 100mcg/0.5mg (Moderna) 06/15/2021 H1N1 2009 Influenza, IM 09/09/2009 Pneumococcal Conjugate Vacci ne, 20-valent ([id number]) 06/15/2022 Seasonal Influenza, PF, 6 M & [...] and Fusion, Hardware removal L4-5. 01/30/2024 at [facility], for burning pain R worse than left [...] 90 Tab 3 Vitamin D3 250 MCG (27004 UT) Oral Capsule Take 1 Capsule by mouth daily at noon. Fish Oil Double Strength 1200 MG Oral Capsule Take by mouth 2,500 mg daily at noon . Fluticasone Propionate 50 MCG/ACT Nasal Suspension (Flonase) Administer 1 [place] into nostril in themorning. Atorvastatin Calcium 20 [...] performed by Dileep Estes MD at ENDOSCOPY [facility] COLORECTAL CANCER SCREEN; NOT AT RISK 03/13/2011 neg INJECT DX/THER SUBSTANCE INTERLAMINAR LUMBAR/SACRAL W IMAGE GUIDE 09/26/2018 INJECTION SPINE LUMBAR OR SACRAL performed by Jr Harper DO at OR [facility] LAMINOTOMY, SINGLE LUMBAR 2002 L5 S1 fragmented disk LAPAROSCOPY; REPAIR INITIAL INGUINAL HERNIA Right 02/03/2022 LAPAROSCOPIC REPAIR INGUINAL HERNIA INITIAL performed by Josh Carmona MD at [facility] LUMBAR SPINE FUSION W/BONE GRAFT 2018 L4-5 removal hardware MISCELLANEOUS ORDER (HS ONLY) Right 04/07/2020 [facility]- Dr Jimenez- right lower eyelid MOHS defect [...] Age of Onset Cancer Father 61 lung, plant maintenance worker, smoker Diabetes Father NIDDM Cancer Grandfather [...] Description 05/26/2024 9:40 AM EDT Office Visit [facility] Beatriz [place] [address] [facility] [place] [address] Barry Paco ALCARAZ MD [address] [place] [id number] Scheduled Procedures Name Priority Associated Diagnoses Date/Ti [...] this encounter Medical Devices Implanted Type Area Patient Access Associate Device Identifier Shelf Expiration Date Model / Serial / Lot Mesh 3dmax 3.1x5.3in Rht Med - [id number] Implanted:Qty: 1 on 02/03/2022 by Josh Carmona MD at OR [facility] Right: Abdomen CR BARD : DAVOL 07/17/2025 [id number] / / [id number] Description:Right inguinal a john documented as of [...] and were consensually agreed upon. Care Teams Case Worker Relationship Specialty Start Date End Date Paco Sena III, MD [address] [place] [address] PCP - General 04/03/1996 documented as of this encounter
--- OUTSIDE RECORDS SUMMARY | 2024-01-31 08:36 | External Medical Summary | Summary of Care ---
Author Name Unknown Organization [facility] Address [address] [place] [address] Phone [phone] Care Team Providers Care Junior Media Buyer Name Role Phone Jaida ALCARAZ MD, Paco hSankar Primary Care Provider [phone] Reason for Visit * Reason Onset Date Comments Health Maintenance 01/24/2024 Encounter Details Date Type Department Care Team (Late st Contact Info) Description 01/24/2024 Telephone Family Practice [facility] [address] [place] [address] Paco Sena III, MD [address] [place] [address] Health Maintenance Allergies Active Allergy Reactions Criticality Noted Date Comments Carbamazepine 11/07/2005 Abdominal and kidney pain, swollen lymph nodes Levofloxacin Other (Please comment) 02/01/2011 Pain in Achilles Methylprednisolone 01/31/2022 Tachycardia hypertension Morphine Sulfate Hypertension,Tachyca r bibiana 09/09/2009 Oxycodone Tachycardia 01/01/2019 HTN, Tachycardia Prednisone Hypertension,Tachyca r bibiana 11/20/2023 documented as of this encounter (statuses as of 01/24/2024) Medications Medication Sig Dispensed Refills Start Date End Date Status CARLEE 180 MG PO TABSIndications:Al lergic rhinitis One tablet daily 90 Tab 3 10/24/2010 Active Additional Information Patient taking differently: 180 mgOralHS, Reported on 03/15/2023 Vitamin D3 250 MCG (52899 UT) Oral Capsule Take 1 Capsule by mouth daily at noon. Active Fish Oil Double Strength 1200 MG Oral Capsule Take by mouth 2,500 mg daily at noon . Active Fluticasone Propionate 50 MCG/ACT Nasal Suspension (Flonase) Administer 1 [place] into nostril in the morning. Active Atorvastatin Calcium 20 MG Oral Tablet (Lipitor) Take 1 Tablet by mouth in the morning. 90 Tablet 5 02/07/2023 Active Cyclobenzaprine HCl 10 MG Oral Tablet (Flexeril) TAKE 1 TABLET BY MOUTH 2 TIMES A DAY NEEDED FOR MUSCLE SPASMS. 20 Tablet 03/13/2023 Active Meloxicam 15 MG Oral Tablet Take 1 Tablet by mouth in the morning. for pain.. 30 Tablet 5 06/06/2023 Active traZODone HCl 50 MG Oral Tablet (Desyrel) 1/2-1 tab at bedtime as needed sleep 90 Tablet 3 07/30/2023 Active traMADol HCl 50 MG Oral Tablet (Ultram)Indication s:Lumbar radicular pain Take 1 Tablet by mouth every 8 hours as needed for Pain, Severe. 28 Tablet 10/12/2023 Active Candesartan Cilexetil 32 MG Oral Tablet (Atacand) TAKE 1 TABLET BY MOUTH EVERY DAY 90 Tablet 3 11/13/2023 Active metFORMIN HCl ER 500 MG Oral Tablet Extended Release 24 Hour (Glucophage XR)Indications:Radha vated fasting glucose TAKE 2 TABLETS BY MOUTH EVERY DAY 180 Tablet 3 11/13/2023 Active Gabapentin 300 MG Oral Capsule (Neurontin)Indicat ions:Sciatica TAKE 1 CAP (300 MG) IN THE MORNING AND 1 CAP (300 MG) AT NOON AND 1 CAP (300 MG) BEFORE BEDTIME. 270 Capsule 3 12/06/2023 Active documented as of this encounter (statuses as of 01/24/2024) Active Problems Problem Noted Date Diagnosed Date [...] as of this encounter (statuses as of 01/24/2024) Resolved Problems Problem Noted Date Diagnosed Date Resolved Date Chronic kidney disease, stage 3a 12/28/2020 12/08/2021 Overview: Per CKD protocol documented as of this encounter (statuses as of 01/24/2024) Immunizations Name Administration Dates Next Due COVID-19 Whole Virus, Stephens Vac, 2-Dose Series (Kinoos) 12/03/2020,11/05/2020 COVID-19, mRNA, LNP-s, PF, B ooster, 100mcg/0.5mg (Moderna) 06/15/2021 H1N1 2009 Influenza, IM 09/09/2009 Pneumococcal Conjugate Vacci ne, 20-valent ([id number]) 06/15/2022 Seasonal Influenza, PF, 6 M & [...] on file documented as of this encounter Miscellaneous Notes * Telephone Encounter - Danette Garcia LPN - 01/24/2024 11:18 AM EDT Care Gaps Comprehensive Care Outreach Last Office/Telemedicine Visit: 01/24/2024 (in office), 11/24/2020 (telemedicine) Next Office Visit: 05/26/2024 Hemoglobin AIC Results: Lab Results Component Value Date/Time HEMOGLOBIN A1C - [facility] 6.1 (H) 11/12/2023 08:38 AM HEMOGLOBIN A1C - [facility] 5.9 (H) 12/15/2022 07:18 AM HEMOGLOBIN A1C - [facility] 6.0 (H) 06/15/2022 10:29 AM HEMOGLOBIN A1C - [facility] 5.7 (H) 03/16/2020 08:20 AM HEMOGLOBIN A1C - [facility] 5.8 (H) 11/01/2018 09:57 AM HEMOGLOBIN A1C - [facility] 5.8 03/13/2017 08:30 AM BP Readings from Last 1 Encounters: 01/24/24 126/72 Reviewed Health Maintenance below: Health Maintenance Topic Date Due COVID-19 Vaccine ( season) 2023 Diabetic Foot Exam 06/15/2023 Depression Screening 06/15/2023 Diabetic Eye Exam 04/13/2024 HbA1c 05/14/2024 Pcp today Care Gap Outreach Action Taken: Outreach not indicated documented in this encounter Plan of Treatment Upcoming Encounters Date Type Department Care Team (Late st Contact Info) Description 05/26/2024 9:40 AM EDT Office Visit [facility] [address] [place] [address] Paco Sena III, MD [address] [place] [address] Scheduled Procedures Name Priority Associated Diagnoses Date/Ti [...] this encounter Medical Devices Implanted Type Area Windshield Wiper Repairer Device Identifier Shelf Expiration Date Model / Serial / Lot Mesh 3dmax 3.1x5.3in t Med - [id number] Implanted:Qty: 1 on 02/03/2022 by Josh Carmona MD at OR [facility] Right: Abdomen CR BARD : DAVOL 07/17/2025 [id number] / / [id number] Description:Right inguinal a john documented as of this encounter Advance Directives * Full Code (Latest Code Status on File) Date Activated Date Inactivated Comments 02/03/2022 11:40 AM 02/03/2022 8:12 PM This order reflects the patients wishes and were consensually agreed upon. Care Teams Junior Media Buyer Relationship Specialty Start Date End Date Paco Sena III, MD [address] [place] [address] PCP - General 04/03/1996 documented as of this encounter
--- OUTSIDE RECORDS SUMMARY | 2024-01-31 08:36 | External Medical Summary | Summary of Care ---
Author Name Unknown Organization [facility] Address [address] [place] [address] Phone [phone] Care Team Providers Care Byproduct Engineer Name Role Phone Jaida ALCARAZ MD, Paco Shankar Primary Care Provider [phone] Encounter Details Date Type Department Care Team (Late st Contact Info) Description 01/21/2024 Orders Only Family Practice [facility] [address] [place] [address] Paco Sena III, MD [address] [place] [address] Allergies Active Allergy Reactions Criticality Noted Date Comments Carbamazepine 11/07/2005 Abdominal and kidney pain, swollen lymph nodes Levofloxacin Other (Please comment) 02/01/2011 Pain in Achilles Methylprednisolone 01/31/2022 Tachycardia hypertension Morphine Sulfate Hypertension,Tachyca r bibiana 09/09/2009 Oxycodone Tachycardia 01/01/2019 HTN, Tachycardia Prednisone Hypertension,Tachyca r bibiana 11/20/2023 documented as of this encounter (statuses as of 01/21/2024) Medications Medication Sig Dispensed Refills Start Date End Date Status CARLEE 180 MG PO TABSIndications:All ergic rhinitis One tablet daily 90 Tab 3 10/24/2010 Active Additional Information Patient taking differently: 180 mgOralHS, Reported on 03/15/2023 Vitamin D3 250 MCG (97174 UT) Oral Capsule Take 1 Capsule by mouth daily at noon. Active Fish Oil Double Strength 1200 MG Oral Capsule Take by mouth 2,500 mg daily at noon . Active Fluticasone Propionate 50 MCG/ACT Nasal Suspension (Flonase) Administer 1 [place] into nostril in the morning. Active clonazePAM 1 MG Oral Tablet (KlonoPIN) TAKE 1 TABLET BY MOUTH EVERYDAY AT BEDTIME 90 Tablet 01/17/2023 Active Additional Information Patient not taking.Reported on 11/20/2023 Atorvastatin Calcium 20 MG Oral Tablet (Lipitor) Take 1 Tablet by mouth in the morning. 90 Tablet 5 02/07/2023 Active Cyclobenzaprine HCl 10 MG Oral Tablet (Flexeril) TAKE 1 TABLET BY MOUTH 2 TIMES A DAY NEEDED FOR MUSCLE SPASMS. 20 Tablet 03/13/2023 Active Ketorolac Tromethamine 10 MG Oral Tablet (Toradol)Indication s:Sprain of sacroiliac region, initial encounter Take 1 Tablet by mouth 4 times a day as needed for Pain, Moderate. Do not take for longer than 5 days 20 Tablet 05/22/2023 Active Additional Information Patient not taking.Reported on 11/20/2023 tiZANidine HCl 2 MG Oral Tablet (Zanaflex)Indicatio ns:Sprain of sacroiliac region, initial encounter Take 1 Tablet by mouth every 6 hours as needed for Muscle spasms. 30 Tablet 05/22/2023 Active Meloxicam 15 MG Oral Tablet Take 1 Tablet by mouth in the morning. for pain.. 30 Tablet 5 06/06/2023 Active traZODone HCl 50 MG Oral Tablet (Desyrel) 1/2-1 tab at bedtime as needed sleep 90 Tablet 3 07/30/2023 Active traMADol HCl 50 MG Oral Tablet (Ultram)Indications :Lumbar radicular pain Take 1 Tablet by mouth every 8 hours as needed for Pain, Severe. 28 Tablet 10/12/2023 Active Candesartan Cilexetil 32 MG Oral Tablet (Atacand) TAKE 1 TABLET BY MOUTH EVERY DAY 90 Tablet 3 11/13/2023 Active metFORMIN HCl ER 500 MG Oral Tablet Extended Release 24 Hour (Glucophage XR)Indications:Elev ated fasting glucose TAKE 2 TABLETS BY MOUTH EVERY DAY 180 Tablet 3 11/13/2023 Active Gabapentin 300 MG Oral Capsule (Neurontin)Indicati ons:Sciatica TAKE 1 CAP (300 MG) IN THE MORNING AND 1 CAP (300 MG) AT NOON AND 1 CAP (300 MG) BEFORE BEDTIME. 270 Capsule 3 12/06/2023 Active documented as of this encounter (statuses as of 01/21/2024) Active Problems Problem Noted Date Diagnosed Date Diabetes mellitus without complication 1 Gout 11/09/2005 ADVANCE DIRECTIVE INFORMATION 06/28/2005 Overview: [...] as of this encounter (statuses as of 01/21/2024) Resolved Problems Problem Noted Date Diagnosed Date Resolved Date Chronic kidney disease, stage 3a 12/28/2020 12/08/2021 Overview: Per CKD protocol Prediabetes 10/02/2017 06/30/2021 Overview: Per Prediabetes protocol #1 documented as of this encounter (statuses as of 01/21/2024) Immunizations Name Administration Dates Next Due COVID-19 Whole Virus, Stephens Vac, 2-Dose Series (Amperion) 12/03/2020,11/05/2020 COVID-19, mRNA, LNP-s, PF, B ooster, 100mcg/0.5mg (Moderna) 06/15/2021 H1N1 2009 Influenza, IM 09/09/2009 Pneumococcal Conjugate Vacci ne, 20-valent ([id number]) 06/15/2022 Seasonal Influenza, PF, 6 M & [...] on file documented as of this encounter Plan of Treatment Upcoming Encounters Date Type Department Care Team (Late st Contact Info) Description 01/24/2024 7:20 AM EDT Office Visit [facility]1] [facility] [address] [place] [address] Nelsy Camara DO [address] [place] [address] 05/26/2024 9:40 AM EDT Office Visit [facility][1] [place] [facility] [address] [place] [address] Paco Sena III, MD [address] [place] [address] Scheduled Procedures Name Priority Associated Diagnoses Date/Ti [...] 11/12/2023, 05/21, 04/27/2021, Additional history exists GFR 11/11/2024 01/17/2024, 10/19, 12/15/2022, Additional history exists DTaP,Tdap,and [...] this encounter Medical Devices Implanted Type Area Men'S Basketball Coach Device Identifier Shelf Expiration Date Model / Serial / Lot Mesh 3dmax 3.1x5.3in [facility] Summly - [id number] Implanted:Qty: 1 on 02/03/2022 by Josh Carmona MD at OR [facility] Right: Abdomen CR BARD : DAVOL 07/17/2025 [id number] / / [id number] Description:Right inguinal a john documented as of this encounter Procedures Procedure Name Priority Date/Time Associated Diagnosis Comments XR CHEST 2 VIEWS Routine 01/17/2024 CHEMISTRY-OUTSIDE Routine 01/17/2024 documented in this encounter Results * (ABNORMAL) CHEMISTRY-OUTSIDE (01/17/2024) Not all results display below - see scan for full detail OUTSIDE LAB (SEE SCANNED REPORT) Comment:SCAN INCLUDES - UA, CBCD, PT, INR, PTT, BMP CREATININE-OUTSI DE LAB 1.20 0.6 - 1.4 MG/DL OUTSIDE LAB (SEE SCANNED REPORT) EGFR-OUTSIDE LAB 64.0 ML/MIN/1.73M 2 OUTSIDE LAB (SEE SCANNED REPORT) POTASSIUM-OUTSID E LAB 4.3 3.5 - 5.1 MMOL/L OUTSIDE LAB (SEE SCANNED REPORT) GLUCOSE-OUTSIDE LAB 101(A) 70 - 99 MG/DL OUTSIDE LAB (SEE SCANNED REPORT) HOURS FASTING OUTSID E LAB (SEE SCANNED REPORT) TRIGLYCERIDES-OU TSIDE LAB OUTSIDE LAB (SEE SCANNED REPORT) CHOLESTEROL-OUTS [facility] OUTSIDE LAB (SEE SCANNED REPORT) HDL-OUTSIDE LAB OUTS [facility] (SEE SCANNED REPORT) CHOL/HDL RATIO-OUTSIDE LAB OUTSIDE LAB (SEE SCANNED REPORT) LDL (CALCULATED)-OUT SIDE LAB OUTSIDE LAB (SEE SCANNED REPORT) LDL (DIRECT MEASURE)-OUTSIDE LAB OUTSIDE LAB (SEE SCANNED REPORT) HEMOGLOBIN, X0W-LNMAMEW LAB OUTSIDE LAB (SEE SCANNED REPORT) PHOSPHORUS-OUTSI DE LAB OUTSIDE LAB (SEE SCANNED REPORT) PTH-OUTSIDE LAB OUTS [facility] (SEE SCANNED REPORT) MICROALBUMIN RATIO-OUTSIDE LAB OUTSIDE LAB (SEE SCANNED REPORT) PROTEIN, UA-OUTSIDE LAB NEGATIVE NEGATIVE OUTSIDE LAB (SEE SCANNED REPORT) HGB 15.1 14.0 - 18.0 G/DL OUTSIDE LAB (SEE SCANNED REPORT) 01/17/2024 Cyril Giles DO LABORATORY OUTSIDE LAB (SEE SCANNED REPORT) * XR CHEST 2 VIEWS (01/17/2024) Anatomical Region Laterality Modality Chest Other 01/17/2024 Cyril Giles DO RADIOLOGY ( RAD GENERAL) documented in this encounter Advance Directives * Full Code (Latest Code Status on File) Date Activated Date Inactivated Comments 02/03/2022 11:40 AM 02/03/2022 8:12 PM This order reflects the patients wishes and were consensually agreed upon. Care Teams Byproduct Engineer Relationship Specialty Start Date End Date Paco Sena III, MD [address] [facility] [place] [address] PCP - General 04/03/1996 documented as of this encounter
--- OUTSIDE RECORDS SUMMARY | 2024-01-31 08:36 | External Medical Summary | Summary of Care ---
Author Name Unknown Organization [facility] Address [address] [place] [address] Phone [phone] Care Team Providers Care General Magistrate Name Role Phone Jaida ALCARAZ MD, Paco Shankar Primary Care Provider [phone] Encounter Details Date Type Department Care Team (Late st Contact Info) Description 01/17/2024 Result Scan Unspecified Department <No scans attached> Allergies Active Allergy Reactions Criticality Noted Date [...] Reported on 03/15/2023 Vitamin D3 250 MCG (07692 UT) Oral Capsule Take 1 Capsule by mouth daily at noon. Active Fish Oil Double Strength 1200 MG Oral Capsule Take by mouth 2,500 mg daily at noon . Active Fluticasone Propionate 50 MCG/ACT Nasal Suspension (Flonase) Administer 1 [place] into nostril in the morning. Active clonazePAM [...] COVID-19 Whole Virus, Stephens Vac, 2-Dose Series (Senexx) 12/03/2020,11/05/2020 COVID-19, mRNA, LNP-s, PF, B ooster, 100mcg/0.5mg (Moderna) 06/15/2021 H1N1 2009 Influenza, IM 09/09/2009 Pneumococcal Conjugate Vacci ne, 20-valent ([id number]) 06/15/2022 Seasonal Influenza, PF, 6 M & [...] Description 01/24/2024 7:20 AM EDT Office Visit [facility] [address] [place] [address] Nelsy Camara DO [address] [facility] [place] [address] 05/26/2024 9:40 AM EDT Office Visit [facility] [place] [address] [place] [address] Paco Sena III, MD [address] [facility] [place], [place] [address] Scheduled Procedures Name Priority Associated Diagnoses Date/Ti [...] 05/21, 04/27/2021, Additional history exists GFR 11/11/2024 11/12/2023, 11/19, 06/15/2022, Additional history exists DTaP,Tdap,and Td Vaccines (3 [...] this encounter Medical Devices Implanted Type Area Simulation Educator Device Identifier Shelf Expiration Date Model / Serial / Lot Mesh 3dmax 3.1x5.3in t Med - [id number] Implanted:Qty: 1 on 02/03/2022 by Josh Carmona MD at [facility] Right: Abdomen CR BARD : DAVOL 07/17/2025 [id number] / / [id number] Description:Right inguinal a john documented as of this encounter Procedures Procedure Name Priority Date/Time Associated Diagnosis Comments EKG SCANNED RESULT 01/17/2024 documented in this encounter Results * EKG SCANNED RESULT (01/17/2024) 01/17/2024 No Physician Data Unknown EKG documented in this encounter Advance Directives * Full Code (Latest Code Status on File) Date Activated Date Inactivated Comments 02/03/2022 11:40 AM 02/03/2022 8:12 PM This order reflects the patients wishes and were consensually agreed upon. Care Teams General Magistrate Relationship Specialty Start Date End Date Paco Sena III, MD [address] [place] [address] PCP - General 04/03/1996 documented as of this encounter
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
--- OUTSIDE RECORDS SUMMARY | 2024-01-31 08:37 | External Medical Summary | Summary of Care ---
Author Name Unknown Organization [facility] Address [address] [place] [address] Phone [phone] Care Team Providers Care Law Firm Partner Name Role Phone Jaida ALCARAZ MD, Paco Shankar Primary Care Provider [phone] Reason for Visit * Reason Onset Date Comments Advice 01/18/2024 Encounter Details Date Type Department Care Team (Late st Contact Info) Description 01/18/2024 Telephone Cardiology, [facility] [address] [place] [address] Rodrigue Dominguez, [address] [place] [address] Advice Allergies Active Allergy Reactions Criticality Noted [...] Reported on 03/15/2023 Vitamin D3 250 MCG (84424 UT) Oral Capsule Take 1 Capsule by mouth daily at noon. Active Fish Oil Double Strength 1200 MG Oral Capsule Take by mouth 2,500 mg daily at noon . Active Fluticasone Propionate 50 MCG/ACT Nasal Suspension (Flonase) Administer 1 [place] into nostril in the morning. Active clonazePAM [...] COVID-19 Whole Virus, Stephens Vac, 2-Dose Series ([facility]) 12/03/2020,11/05/2020 COVID-19, mRNA, LNP-s, PF, B ooster, 100mcg/0.5mg (Moderna) 06/15/2021 H1N1 2009 Influenza, IM 09/09/2009 Pneumococcal Conjugate Vacci ne, 20-valent ([id number]) 06/15/2022 Seasonal Influenza, PF, 6 M & [...] encounter Miscellaneous Notes * Telephone Encounter - Monalisa Olsen CMA - 01/18/2024 4:28 PM EDT Faxed all information to [facility] as requested. (k): Successful confirmation. * Telephone Encounter - Rodrigue Dominguez DO [...] pain medication. Data: Preoperative EKG performed at [facility] dated 01/17/2024 and interpreted independently: Sinus rhythmat 86 beats per minute, no significant repolarization abnormalities. Compared to the previous performed within the [facility] dated 03/30/2023, no significant interval change. [...] this note, the form sent over by [facility], and most recent complete progress note dating back to March and fax them to [facility]. * Telephone Encounter - Cyril Michele RN - 01/18/2024 2:56 PM EDT Form placed on Dr. De La O desk to sign * Telephone Encounter - Nicoel Vasquez OSA - 01/18/2024 10:39 AM EDT Person calling: Nic Relationship to patient: self Number to return call: [phone] Reason for call(brief): call back Pharmacy: na Provider Name:Angelica Detailed message to office:Pt calling in stating he is having surgery 01/30/[address] Giles. He stated there should have been a pre op clearance form faxed over from [facility]. He is asking for a call back to let him know if it was received and if it can be filled out. Pt was last seen in office 03/30/23 by Jasmin Sorto. Please advise. Thank you. documented in this encounter Plan of Treatment Upcoming Encounters Date Type Department Care Team (Late st Contact Info) Description 01/24/2024 7:20 AM EDT Office Visit [facility] [address] [place] [address] Nelsy Camara, [address] [place] [address] 05/26/2024 9:40 AM EDT Office Visit [facility] [address] [place] [address] Paco Sena III, MD [address] [place] [address] Scheduled Procedures Name Priority Associated Diagnoses Date/Ti [...] this encounter Medical Devices Implanted Type Area Pecan Grower Device Identifier Shelf Expiration Date Model / Serial / Lot Mesh 3dmax 3.1x5.3in t Med - [id number] Implanted:Qty: 1 on 02/03/2022 by Josh Carmona MD at [facility] Right: Abdomen CR BARD : DAVOL 07/17/2025 [id number] / / [id number] Description:Right inguinal a john documented as of this encounter Advance Directives * Full Code (Latest Code Status on File) Date Activated Date Inactivated Comments 02/03/2022 11:40 AM 02/03/2022 8:12 PM This order reflects the patients wishes and were consensually agreed upon. Care Teams Law Firm Partner Relationship Specialty Start Date End Date Paco Sena III, MD [address] [place] [address] PCP - General 04/03/1996 documented as of this encounter
--- OUTSIDE RECORDS SUMMARY | 2024-01-31 08:37 | External Medical Summary | Summary of Care ---
Author Name Unknown Organization [facility] Address [address] [place] [address] Phone [phone] Care Team Providers Care Gang Tailer Name Role Phone Jaida ALCARAZ MD, Paco Shankar Primary Care Provider [phone] Reason for Visit * Reason Onset Date Comments Advice 01/18/2024 Encounter Details Date Type Department Care Team (Late st Contact Info) Description 01/18/2024 Telephone Cardiology, [facility] [address] [place] [address] Rodrigue Dominguez, [address] [place] [address] Advice Allergies Active Allergy Reactions Criticality Noted [...] Reported on 03/15/2023 Vitamin D3 250 MCG (81957 UT) Oral Capsule Take 1 Capsule by mouth daily at noon. Active Fish Oil Double Strength 1200 MG Oral Capsule Take by mouth 2,500 mg daily at noon . Active Fluticasone Propionate 50 MCG/ACT Nasal Suspension (Flonase) Administer 1 [place] into nostril in the morning. Active clonazePAM [...] Administration Dates Next Due COVID-19 Whole Virus, Stephnes Vac, 2-Dose Series ([employer]) 12/03/2020,11/05/2020 COVID-19, mRNA, LNP-s, PF, B ooster, 100mcg/0.5mg (Moderna) 06/15/2021 H1N1 2009 Influenza, IM 09/09/2009 Pneumococcal Conjugate Vacci ne, 20-valent ([id number]) 06/15/2022 Seasonal Influenza, PF, 6 M & [...] encounter Miscellaneous Notes * Telephone Encounter - Cyril Michele RN - 01/18/2024 2:56 PM EDT Form placed on Dr. De La O desk to sign * Telephone Encounter - Nicole Vasquez OSA - 01/18/2024 10:39 AM EDT Person calling: Nic Relationship to patient: self Number to return call: [phone] Reason for call(brief): call back Pharmacy: na Provider Name:Angelica Detailed message to office:Pt calling in stating he is having surgery 01/30/[address] Giles. He stated there should have been a pre op clearance form faxed over from [facility]. He is asking for a call [...] 9:40 AM EDT Office Visit Family Practice [facility] [place] [address] [facility] [place] [address] Paco Sena III, MD [address] [facility] [place] [address] Scheduled Procedures Name Priority Associated Diagnoses Date/Ti [...] this encounter Medical Devices Implanted Type Area Wine Consultant Device Identifier Shelf Expiration Date Model / Serial / Lot Mesh 3dmax 3.1x5.3in t Med - [id number] Implanted:Qty: 1 on 02/03/2022 by Josh Carmona MD at OR [facility] Right: Abdomen CR BARD : DAVOL 07/17/2025 [id number] / / [id number] Description:Right inguinal a john documented as of this encounter Advance Directives * Full Code (Latest Code Status on File) Date Activated Date Inactivated Comments 02/03/2022 11:40 AM 02/03/2022 8:12 PM This order reflects the patients wishes and were consensually agreed upon. Care Teams Gang Tailer Relationship Specialty Start Date End Date Paco Sena III, MD [address] [facility] [place] [address] PCP - General 04/03/1996 documented as of this encounter
--- OUTSIDE RECORDS SUMMARY | 2024-01-31 08:38 | External Medical Summary | Summary of Care ---
Author Name Unknown Organization [facility] Address [address] [place] [address] Phone [phone] Care Team Providers Care Pipe Manufacture Supervisor Name Role Phone Jaida ALCARAZ MD, Paco Shankar Primary Care Provider [phone] Reason for Visit * Reason Onset Date Comments Advice 01/18/2024 Encounter Details Date Type Department Care Team (Late st Contact Info) Description 01/18/2024 Telephone Cardiology, [facility] [address] [place] [address] Rodrigue Dominguez, [address] [place] [address] Advice Allergies Active Allergy Reactions Criticality Noted [...] Reported on 03/15/2023 Vitamin D3 250 MCG (26071 UT) Oral Capsule Take 1 Capsule by mouth daily at noon. Active Fish Oil Double Strength 1200 MG Oral Capsule Take by mouth 2,500 mg daily at noon . Active Fluticasone Propionate 50 MCG/ACT Nasal Suspension (Flonase) Administer 1 [place] into nostril in the morning. Active clonazePAM [...] COVID-19 Whole Virus, Stephens Vac, 2-Dose Series ([employer]) 12/03/2020,11/05/2020 COVID-19, mRNA, LNP-s, PF, B ooster, 100mcg/0.5mg (Moderna) 06/15/2021 H1N1 2009 Influenza, IM 09/09/2009 Pneumococcal Conjugate Vacci ne, 20-valent ([id number]) 06/15/2022 Seasonal Influenza, PF, 6 M & [...] 2:56 PM EDT Form placed on Dr. DeL a O desk to sign * Telephone Encounter - Nicole Vasquez OSA - 01/18/2024 10:39 AM EDT Person calling: Nic Relationship to patient: self Number to return call: [phone] Reason for call(brief): call back Pharmacy: na Provider Name:Angelica Detailed message to office:Pt calling in stating he is having surgery 01/30/[address] Giles. He stated there should have been a pre op clearance form faxed over from [facility]. He is asking for a [...] 9:40 AM EDT Office Visit Family Practice [facility] [place] [address] [facility] [place] [address] Paco Sena III, MD [address] [facility] [place] [address] Scheduled Procedures Name Priority Associated Diagnoses Date/Ti [...] this encounter Medical Devices Implanted Type Area Tractor Mechanic Apprentice Device Identifier Shelf Expiration Date Model / Serial / Lot Mesh 3dmax 3.1x5.3in t Med - [id number] Implanted:Qty: 1 on 02/03/2022 by Josh Carmona MD at OR [facility] Right: Abdomen CR BARD : DAVOL 07/17/2025 [id number] / / [id number] Description:Right inguinal a john documented as of this encounter Advance Directives * Full Code (Latest Code Status on File) Date Activated Date Inactivated Comments 02/03/2022 11:40 AM 02/03/2022 8:12 PM This order reflects the patients wishes and were consensually agreed upon. Care Teams Pipe Manufacture Supervisor Relationship Specialty Start Date End Date Paco Sena III, MD [address] [place] [address] PCP - General 04/03/1996 documented as of this encounter
[2024-01-31] MEDS ORDERED: VITAMIN K2 100 MCG PO SCH (09:00)
[2024-01-31] MEDS: LOSARTAN POTASSIUM 50 MG TAB PO SCH (09:16)
[2024-01-31] MEDS: ASCORBIC ACID 500 MG TAB PO SCH (09:16)
[2024-01-31] MEDS: CHOLECALCIFEROL 25 MCG (1000 UNITS) TAB PO SCH (09:16)
--- NOTE | 2024-01-31 10:42 | Hospitalist Progress Note ---
Date of Service January 31, 2024 Assessment & Plan (1) Spinal stenosis, lumbar region with neurogenic claudication: (2) S/P lumbar spine operation: Plan: Nic Márquez is a 64 y/o M with PMHx of gout, dyslipidemia, prediabetes, HTN and other problems listed below who was referred to us by Dr. Giles for post- operative medical management. Patient is s/p L3-L4 decompression and fusion, hardware removal L4-L5 for treatment of lumbar spinal stenosis w/ neurogenic claudication. POD#1, EBL: 150mL Pain/wound management per orthopedics Activity and therapy as prescribed by orthopedics EBL 150, postoperative hemoglobin 13.0 (3) Acute blood loss anemia: Plan: pre op hgb 15 expected post operative blood loss and suspected dilutional component hgb 13.0 today follow up cbc in a.m. (4) Prediabetes: Plan: A1c 6.2 today Metformin on hold Glycemic pharmacy on board with bolus insulin Resume metformin at discharge (5) Hypertension: Plan: BP elevated this morning, continue losartan and monitor (6) Hyperlipidemia: Plan: Chronic, stable continue statin therapy (7) Seasonal allergies: Plan: -Continue fexofenadine, Flonase DVT Prophylaxis: TEDs/SCDs as per ortho Code Status: Full Code PCP: Paco Sena III, MD Dispo: Admitted in Med/Surg Thank you for this consultation. We will follow the patient with you during their hospital stay. You can reach a member of the [facility] Hospitalist Team 12/03 via hospitalist role on tiger text. Patient was seen and examined in collaboration with, Dr. Westbrook. A total of 45 minutes was spent coordinating, documenting, and providing care for this patient excluding time spent in the performance of separately billed services. This included personally viewing all current laboratories and imaging studies, medication reconciliation, outpatient chart review, and discussion with specialists. Admission and Anticipated Discharge Date Admission Date: January 30, 2024 Subjective Patient was seen and examined in 321. Follow-up lumbar surgery by Dr. Giles. He currently feels well. He is sitting up in bedside chair. He denies any significant pain, chest pain, shortness breath, nausea, vomiting, abdominal pain. He is passing flatus. He is tolerating diet and denies nausea. He has already been up and ambulating with therapy. Review of Systems Review of Systems: All systems reviewed & are unremarkable except as noted in HPI & below Physical Exam Physical Exam: Gen: WD/WN, M, sitting up in bedside chair, NAD, A&O x3 HEENT: Normocephalic, atraumatic, conjunctivae moist, sclerae anicteric, mucous membranes moist. Lung: Clear to Auscultation bilaterally, no wheezes/rales/rhonchi Heart: Regular rate, regular rhythm, no murmurs, rubs, or gallops Abdomen: Soft, NT, ND +BS x 4 Extremities: No edema, lumbar dressing CDI Skin: Warm, no rash, negative turgor. Results & Data Results & Data Vital Signs (Past 12 Hours) Vital Signs Temp Pulse Resp BP Pulse Ox O2 Del Method 01/31/24 08:18 37.0 C 76 16 167/82 H 98 Room Air 01/31/24 03:53 37.0 C 68 16 145/80 H 99 Room Air 01/30/24 23:57 36.5 C 76 15 149/75 H 97 Room Air Diagnostic Findings Lumbar Spine X-Ray 01/30/24 12:15 FL lumbar spine 2-3V CLINICAL HISTORY: L3-L4 DECOMPRESSION AND FUSION, L4-L5 HARDWARE REMOVAL COMPARISON STUDY: Lumbar spine fluoroscopic images December 24, 2018. FLUOROSCOPY TIME: 12 seconds. Ka, r: 8.44 mGy FLUOROSCOPIC IMAGES: 2 FINDINGS: Fluoroscopy was provided during hardware removal with subsequent L3-L4 discectomy, posterior decompression and pedicle screw fusion. Discectomies at the L4-L5 and L5-S1 levels are again noted. IMPRESSION: Fluoroscopy provided during hardware removal and subsequent L3-L4 discectomy, posterior decompression and pedicle screw fusion. ACT 112: Negative or not required by law. Electronically signed by: Leander Thomas M.D. 01/30/2024 5:14 PM Medications Administered Current Inpatient Medications Acetaminophen (Acetaminophen 500 Mg Tab) 1,000 mg PO Q8H PRN PRN Reason: MILD Pain Scale 1,2,3 & Pre PT Stop: 02/29/24 15:35 Hydrocodone Bitart/Acetaminophen (Hydrocodone/Acetamophen 5/325mg Tab) 1 - 2 tab PO Q4H PRN PRN Reason: Pain & Pre PT Stop: 02/13/24 15:35 Al Hydrox/Mg Hydrox/Simethicone (Aluminum/Magnesium Susp 30 Ml Udc) 30 ml PO Q6H PRN PRN Reason: Dyspepsia Stop: 02/29/24 15:35 Ascorbic Acid (Ascorbic Acid 500 Mg Tab) [facility] Stop: 03/01/24 08:59 Last Admin: 01/31/24 09:16 Dose: 500 mg Atorvastatin Calcium (Atorvastatin 20 Mg Tab) 20 mg PO [facility] Stop: 02/29/24 20:59 Last Admin: 01/30/24 21:05 Dose: 20 mg Bisacodyl (Bisacodyl 10 Mg Supp) 10 mg NM DAILY PRN PRN Reason: Constipation Stop: 02/29/24 15:35 Diphenhydramine HCl (Diphenhydramine Capsule 25 Mg Cap) 25 mg PO Q6H PRN PRN Reason: Allergic Rhinitis/Insomnia Stop: 02/29/24 15:35 Famotidine (Famotidine 20 Mg Tab) 20 mg PO Q12H PRN PRN Reason: Dyspepsia Stop: 02/29/24 15:35 Fexofenadine HCl (Fexofenadine Hcl 180 Mg Tab) 180 mg PO [facility] Stop: 02/29/24 20:59 Last Admin: 01/30/24 21:05 Dose: 180 mg Fluticasone Propionate (Fluticasone Propionate Na Spr 16 Gm Btl) 1 sprays NA DAILY PRN PRN Reason: allergies Stop: 02/29/24 15:35 Gabapentin (Gabapentin 300 Mg Cap) 300 mg PO TID PRN PRN Reason: NEUROPATHIC Pain Stop: 02/29/24 15:35 Hydromorphone HCl (Hydromorphone Inj 0.5 Mg/0.5 Ml Syr) 0.5 mg IV Q3H PRN PRN Reason: MODERATE Pain (Scale 4,5,6) & Pre PT Stop: 02/13/24 15:35 Hydromorphone HCl (Hydromorphone Inj 1 Mg/Ml Syringe) 1 mg IV Q3H PRN PRN Reason: SEVERE Pain (Scale 7,8,9,10) Stop: 02/13/24 15:35 Hydroxyzine HCl (Hydroxyzine Hcl 25 Mg Tab) 25 mg PO Q8H PRN PRN Reason: Anxiety Stop: 02/29/24 15:35 Promethazine HCl 12.5 mg/ (Sodium Chloride) 50.5 mls @ 202 mls/hr IV Q6H PRN PRN Reason: Nausea &/or Vomiting Stop: 02/29/24 15:35 Acetaminophen (Ofirmev) 1,000 mg in 100 mls @ 400 mls/hr IV Q8H PRN PRN Reason: Pain Rating 1-3 & Pre PT Stop: 01/31/24 15:37 Lorazepam 0.5 mg/ Syringe 0.5 mls @ 2 mls/min IV Q8H PRN; Protocol PRN Reason: Sedation/Anxiety Stop: 02/29/24 15:35 Influenza Virus Vaccine Quadrival (Do Not Administer Flu Vaccine) 1 each N/A PRN PRN PRN Reason: Notification Stop: 02/29/24 15:35 Insulin Aspart (Insulin Aspart Per Unit Charge) 0 units SC ACHS [facility] Stop: 02/29/24 16:29 Last Admin: 01/31/24 09:26 Dose: 4 units Ketorolac Tromethamine (Ketorolac 30 Mg/Ml Vial) 30 mg IV Q6H [facility] Stop: 01/31/24 16:01 Last Admin: 01/31/24 09:16 Dose: 30 mg Lorazepam (Lorazepam 0.5 Mg Tab) 0.5 mg PO Q8H PRN PRN Reason: Sedation/Anxiety Stop: 02/29/24 15:35 Losartan Potassium (Losartan Potassium 50 Mg Tab) 100 mg PO QAM [facility] Stop: 03/01/24 08:59 Last Admin: 01/31/24 09:16 Dose: 100 mg Magnesium Hydroxide (Magnesium Hydroxide Susp 30 Ml Udc) 30 ml PO Q24H PRN PRN Reason: Constipation Stop: 02/29/24 15:35 Metoclopramide HCl (Metoclopramide Hcl Inj 5 Mg/Ml 2 Ml Vial) 10 mg IV Q6H PRN PRN Reason: Nausea &/or Vomiting Stop: 02/29/24 15:35 Miscellaneous Information (Pharmacy Glycemic Mgmt Consult) 1 each N/A UD PRN PRN Reason: Consult Stop: 02/29/24 15:35 Naloxone HCl (Naloxone Hcl 0.4 Mg/1 Ml Vial/Carp) 0.1 mg IV Q5M PRN PRN Reason: Oversedation/Resp depression Stop: 02/29/24 15:35 Ondansetron HCl (Ondansetron Inj 2 Mg/Ml 2 Ml Vial) 4 mg IV Q6H PRN PRN Reason: Nausea &/or Vomiting Stop: 02/29/24 15:35 Ondansetron HCl (Ondansetron 4 Mg Od Tab) 4 mg PO Q6H PRN PRN Reason: Nausea Stop: 02/29/24 15:35 Pneumococcal Polyvalent Vaccine (Do Not Administer Pneumococcal Vaccine) 1 each N/A PRN PRN PRN Reason: Notification Stop: 02/29/24 15:35 Polyethylene Glycol (Polyethylene (Miralax) 17 Gm Pack) 17 gm PO Q6 [facility] Stop: 03/01/24 05:59 Last Admin: 01/31/24 05:00 Dose: 17 gm Senna/Docusate Sodium (Docusate Sodium/Senna 50/8.6mg Tab) 2 tab PO HS [facility] Stop: 02/29/24 20:59 Last Admin: 01/30/24 21:05 Dose: 2 tab Sodium Biphosphate/Sodium Phosphate (Sod Phosphate/Sod Biphosphate Enema 132 Ml Btl) 132 ml NM ONE PRN PRN Reason: Constipation Stop: 02/29/24 15:35 Tramadol HCl (Tramadol Hcl 50 Mg Tablet) 50 - 100 mg PO Q4H PRN PRN Reason: Moderate-Severe pain & Pre PT Stop: 02/29/24 15:35 Vitamin D (Cholecalciferol 25 Mcg (1000 Units) Tab) 25 mcg PO QAM [facility] Stop: 03/01/24 08:59 Last Admin: 01/31/24 09:16 Dose: 25 mcg (5) Hypertension Hypertension type: unspecified Qualified Code(s): I10 - Essential (primary) hypertension (6) Hyperlipidemia Hyperlipidemia type: unspecified Qualified Code(s): E78.5 - Hyperlipidemia, unspecified
[2024-02-01] MEDS: traMADol HCL 50 MG TABLET PO PRN (04:25)
[2024-02-01 07:30] VITALS: BP 146/83; PULSE 75; RESP 16; TEMP 98.1; O2SAT 98
[2024-02-01 07:34] LABS: Hematocrit (blood only) 40.3 % (42.0-52.0); Hemoglobin 13.3 g/dl (14.0-18.0); Mean Corpuscular Hemoglobin 29.8 pg (25.0-34.0); Mean Corpuscular Volume 90.4 fL (80.0-100.0); Mean Platelet Volume 9.1 fL (9.4-12.4); Platelet Count 213 K/uL (130-400); RDW Coefficient of Variation 12.9 % (11.5-14.5); RDW Standard Deviation 42.2 fL (36.4-46.3); Red Blood Count 4.46 M/uL (4.70-6.10); White Blood Count 7.39 K/ul (4.8-10.8)
[2024-02-01] MEDS: MAGNESIUM HYDROXIDE SUSP 30 ML UDC PO PRN (08:11)
--- NOTE | 2024-02-01 09:54 | Discharge Summary ---
Date of Service February 01, 2024 Admission HPI Per Admitting Provider This is a 64-year-old male who presents for chronic persistent back and leg pain and failing since course of nonoperative care is here for surgical invention. Principal Diagnosis Lumbar spinal stenosis with neurogenic claudication Discharge Data Allergies Allergy/AdvReac Type Severity Reaction Status Date / Time methylprednisolone Allergy Severe Tachycardia Verified 01/30/24 10:37 prednisone Allergy Severe Tachycardia Verified 01/30/24 10:37 morphine Allergy Intermediate tachycardia, Verified 01/30/24 10:37 htn carbamazepine Allergy Mild unsure Verified 01/30/24 10:37 levofloxacin Allergy Mild torn Verified 01/30/24 10:37 ligament and tendon oxycodone [From Roxicodone] Allergy Mild shortness Verified 01/30/24 10:37 of breath Consultations 01/30/24 15:36 Consult Hospitalist Routine Procedures Performed Operation Date: 01/30/24 12:15 Actual Procedures p L3-L4 Decompression and Fusion, Spinal Cord Monitoring(Not Applicable) - Cyril Giles DO s L4-L5 Hardware Removal, (Not Applicable) - Cyril Giles DO Ordered Studies 01/30/24 12:15 FL lumbar spine 2-3V Routine Hospital Course (1) Spinal stenosis, lumbar region with neurogenic claudication: Patient with lumbar depression fusion tolerated as well as taken orthopedic for postoperative postop he progressed appropriately. Marked improvement of his leg pain. ANIL drain decreasing. Pain well-controlled. Excellent strength testing. Simply discharged home. Discharge orders instructions found in chart for further review. Total Time Total Time Spent Total Time Spent (In Minutes): 20 minutes Discharge Plan Discharge Items Patient Disposition: Home - Self-Care Reason For Visit: Spinal Stenosis of Lumbar Region with Radiculopath Discharge Diagnosis: Lumbar spinal stenosis with radiculopathy Activity: As commented below Non-emergency contact: Primary Care Provider Call non-emergency contact if: you have any medication questions Follow-up/Referrals: Paco Sena MD [Primary Care Provider] - Diet: Regular Addtl Attending Provider Instructions: ACTIVITY RECOMMENDATIONS: SELF CARE INSTRUCTIONS AFTER THORACIC/LUMBAR FUSIONS 1. You may walk to your tolerance. It is good exercise for your legs and back. Expect some back and intermittent leg aches and pains. 2. You may perform "counter-top" level activities (make a sandwich, neto with a project, etc.). 3. No bending or lifting of more than 10 pounds or back twisting of any nature (roll like a log when turning in bed). 4. You may ride in a car for 20-30 minutes at a time. No driving until after your first visit with your doctor. 5. Frequent changes of position and restricting sitting to 30 minutes at a time will help limit the amount of back spasms and stiffness you may experience. 6. You may discontinue the use of ambulatory aids (cane, crutches, etc.) once your strength and confidence allow. 7. You may skin drier the shower and let water strike your incision when you arrive home at least once daily. Do not take a tub bath, sit in a hot tub or go into a swimming pool until after your first recheck in the office. SPECIAL CARE INSTRUCTIONS: VERY IMPORTANT TO READ AND REVIEW A. Your surgical incision has been closed with a cosmetic suture under the skin that will dissolve in about 6 weeks. In 14 days, you can use a pair of clean scissors and cut the suture that is left outside of the skin at the ends of your incision. 1. The small skin tapes can be removed 7 days after surgery if they have not fallen off by that point. 2. You may keep the wound open to air as much as possible to promote healing after post-op day number 5 unless told otherwise by your doctor. 3. If you think the wound looks like it is becoming infected (redness or worsening drainage) and/or you are experiencing fever, chill or worsening back pain and muscle spasms, contact the office so that we may evaluate you as soon as possible. B. Complications are uncommon, but please contact us if you have any signs or symptoms of: 1. wound infection (fever higher than 102.5 degrees F, redness, separation of wound, drainage, or increasing pain from the incision) 2. blood clots in legs (pain, swelling, redness and warmth in legs) 3. urinary tract infection (fever higher than 102.5 degrees F, burning upon urination or increased frequency of urination) 4. nerve problems (inability to walk on your toes or heels, numbness, loss of bowel or bladder control) 5. any other symptoms that concern you C. Please call the office at if you have any concerns or questions about your operation or recovery. D. No smoking! Smoking drastically decreases the chance of a solid fusion. E. Do not take any anti-inflammatory medications (Indocin, Advil, Motrin, Aspirin, Naprosyn, etc.) as these may inhibit the chance of a solid fusion. Tylenol is okay to take for pain. MANAGING PAIN AFTER SPINAL SURGERY 1. Narcotic medication is intended for short-term use and will be provided for surgical pain. Surgical pain usually lasts for a period of 4-6 weeks. Narcotic medication includes Percocet, Vicodin, Darvocet, Tylenol #3 or Lortab. 2. Longer-term pain is more appropriately treated with non-narcotic medication such as Tylenol ES. 3. Muscle spasm is not appropriately treated with narcotics. Muscle relaxers such as Soma, Flexeril or Skelaxin can be used along with Tylenol ES. 4. Remember that we all live with some "aches and pains". This is not unusual or uncommon after an injury or as we get older. a. Back pain is expected and may include muscle spasms for 4 to 6 weeks after surgery. The pain should gradually improve. If the pain worsens for no apparent reason, please contact the office. b. Intermittent leg pain may also be experienced and should not be concerned about unless it worsens for no apparent reason. If so, please contact the office. 5. We will provide appropriate medication within the normal guidelines of their prescribed use. We will also be very cautious and aware of potential abuse and extended duration of patients' medication needs. a. Pain medications are for your comfort and to assist with sleep and rest so that the tissue can heal. They are not provided in order to return to normal activity and should not be used through the day. To do so or worsening pain at night can result from ongoing tissue damage and development of tolerance to the prescribed medicine. 6. Please allow 2-3 days to process refills. Prescriptions will not be mailed but must be picked up at the office. FOLLOW UP VISIT: Keep your scheduled follow-up appointment. Any questions, please call the office at . Pending Studies at Discharge: No Stand-Alone Forms: My [employer], Smoking Cessation Medications and DC Order Prescriptions: New hydrocodone-acetaminophen 5-325 mg tablet 1 tab PO Q6H PRN (Reason: pain) Qty: 30 0RF tramadol 50 mg tablet 50 mg PO Q6H PRN (Reason: pain, moderate) Qty: 30 0RF Continued fexofenadine [Caty Allergy] 180 mg Tablet 180 mg PO HS gabapentin 300 mg Capsule 300 mg PO TID PRN (Reason: Pain) metformin 500 mg Tablet,Er Michael.Retention 24 Hr 1,000 mg PO HS tramadol 50 mg Tablet 50 mg PO Q4H PRN (Reason: Pain, Moderate) Qty: 30 0RF atorvastatin 20 mg tablet 20 mg PO HS ascorbic acid (vitamin C) [Vitamin C] 500 mg Tablet 500 mg PO QAM candesartan [Atacand] 32 mg tablet 32 mg PO QAM fluticasone propionate [Flonase] 50 mcg/actuation [place],Suspension 1 spray INTRANASAL DAILY PRN (Reason: allergies) Rx Instructions: administer into each nostril cholecalciferol (vitamin D3) [Vitamin D3] 25 mcg (1,000 unit) Tablet,Chewable 25 mcg PO QAM vitamin K2 (MK-4) 100 mcg Tablet 400 mcg PO QAM Discharge Orders: Discharge Order (Routine); Ordered 02/01/24 Ordered By: Cyril Roberson/Other Patient Handouts: Prediabetes, 5 Steps for Eating Healthier Admission Data Admit Date/Time: 01/30/24 13:47 Attending Provider: Cyril Giles Admit Provider: Cyril Giles Primary Care Provider: Paco Sena Other Providers: Skylar Roman; Reinier Westbrook
--- NOTE | 2024-02-01 11:18 | Hospitalist Progress Note ---
Date of Service February 01, 2024 Assessment & Plan (1) Spinal stenosis, lumbar region with neurogenic claudication: (2) S/P lumbar spine operation: Plan: Nic Márquez is a 64 y/o M with PMHx of gout, dyslipidemia, prediabetes, HTN and other problems listed below who was referred to us by Dr. Giles for post- operative medical management. Patient is s/p L3-L4 decompression and fusion, hardware removal L4-L5 for treatment of lumbar spinal stenosis w/ neurogenic claudication. POD#2, EBL: 150mL Pain/wound management per orthopedics Activity and therapy as prescribed by orthopedics EBL 150, postoperative hemoglobin 13.0 (3) Acute blood loss anemia: Plan: pre op hgb 15 expected post operative blood loss and suspected dilutional component hgb 13.3 today (4) Prediabetes: Plan: A1c 6.2 today Metformin on hold Glycemic pharmacy on board with bolus insulin Resume metformin at discharge (5) Hypertension: Plan: BP elevated this morning, continue losartan and follow up with PCP (6) Hyperlipidemia: Plan: Chronic, stable continue statin therapy (7) Seasonal allergies: Plan: -Continue fexofenadine, Flonase DVT Prophylaxis: TEDs/SCDs as per ortho Code Status: Full Code PCP: Paco Sena III, MD Dispo: Pt is being discharged home today Thank you for this consultation. We will follow the patient with you during their hospital stay. You can reach a member of the [facility] Hospitalist Team 12/03 via hospitalist role on tiger text. Patient was seen and examined in collaboration with, Dr. Westbrook. A total of 35 minutes was spent coordinating, documenting, and providing care for this patient excluding time spent in the performance of separately billed services. This included personally viewing all current laboratories and imaging studies, medication reconciliation, outpatient chart review, and discussion with specialists. Admission and Anticipated Discharge Date Admission Date: January 30, 2024 Subjective Patient was seen and examined in 321. Follow-up lumbar surgery by Dr. Giles. He is sitting up in bed. is at bedside. He is being discharged today. He feels more sore today. Denies f/c/s, chest pain, sob, n/v/d. He is tolerating diet and passing gas. Review of Systems Review of Systems: All systems reviewed & are unremarkable except as noted in HPI & below Physical Exam Physical Exam: Gen: WD/WN, M, sitting up in bedside chair, NAD, A&O x3 HEENT: Normocephalic, atraumatic, conjunctivae moist, sclerae anicteric, mucous membranes moist. Lung: Clear to Auscultation bilaterally, no wheezes/rales/rhonchi Heart: Regular rate, regular rhythm, no murmurs, rubs, or gallops Abdomen: Soft, NT, ND +BS x 4 Extremities: No edema, lumbar dressing CDI Skin: Warm, no rash, negative turgor. Results & Data Results & Data Vital Signs (Past 12 Hours) Vital Signs Temp Pulse Resp BP Pulse Ox O2 Del Method 02/01/24 07:30 36.7 C 75 16 146/83 H 98 Room Air Laboratory Results Short CBC 02/01/24 Range/Units 07:05 WBC 7.39 (4.8-10.8) K/ul Hgb 13.3 L (14.0-18.0) g/dl Hct 40.3 L (42.0-52.0) % Plt Count 213 (130-400) K/uL Medications Administered Current Inpatient Medications Acetaminophen (Acetaminophen 500 Mg Tab) 1,000 mg PO Q8H PRN PRN Reason: MILD Pain Scale 1,2,3 & Pre PT Stop: 02/29/24 15:35 Hydrocodone Bitart/Acetaminophen (Hydrocodone/Acetamophen 5/325mg Tab) 1 - 2 t ab PO Q4H PRN PRN Reason: Pain & Pre PT Stop: 02/13/24 15:35 Al Hydrox/Mg Hydrox/Simethicone (Aluminum/Magnesium Susp 30 Ml Udc) 30 ml PO Q6H PRN PRN Reason: Dyspepsia Stop: 02/29/24 15:35 Ascorbic Acid (Ascorbic Acid 500 Mg Tab) 500 mg PO QAM [facility] Stop: 03/01/24 08:59 Last Admin: 02/01/24 08:09 Dose: 500 mg Atorvastatin Calcium (Atorvastatin 20 Mg Tab) 20 mg PO HS [facility] Stop: 02/29/24 20:59 Last Admin: 01/31/24 20:53 Dose: 20 mg Bisacodyl (Bisacodyl 10 Mg Supp) 10 mg [place] DAILY PRN PRN Reason: Constipation Stop: 02/29/24 15:35 Diphenhydramine HCl (Diphenhydramine Capsule 25 Mg Cap) 25 mg PO Q6H PRN PRN Reason: Allergic Rhinitis/Insomnia Stop: 02/29/24 15:35 Famotidine (Famotidine 20 Mg Tab) 20 mg PO Q12H PRN PRN Reason: Dyspepsia Stop: 02/29/24 15:35 Fexofenadine HCl (Fexofenadine Hcl 180 Mg Tab) 180 mg PO [facility] Stop: 02/29/24 20:59 Last Admin: 01/31/24 20:53 Dose: 180 mg Fluticasone Propionate (Fluticasone Propionate Na Spr 16 Gm Btl) 1 sprays NA DAILY PRN PRN Reason: allergies Stop: 02/29/24 15:35 Gabapentin (Gabapentin 300 Mg Cap) 300 mg PO TID PRN PRN Reason: NEUROPATHIC Pain Stop: 02/29/24 15:35 Hydromorphone HCl (Hydromorphone Inj 0.5 Mg/0.5 Ml Syr) 0.5 mg IV Q3H PRN PRN Reason: MODERATE Pain (Scale 4,5,6) & Pre PT Stop: 02/13/24 15:35 Hydromorphone HCl (Hydromorphone Inj 1 Mg/Ml Syringe) 1 mg IV Q3H PRN PRN Reason: SEVERE Pain (Scale 7,8,9,10) Stop: 02/13/24 15:35 Hydroxyzine HCl (Hydroxyzine Hcl 25 Mg Tab) 25 mg PO Q8H PRN PRN Reason: Anxiety Stop: 02/29/24 15:35 Promethazine HCl 12.5 mg/ (Sodium Chloride) 50.5 mls @ 202 mls/hr IV Q6H PRN PRN Reason: Nausea &/or Vomiting Stop: 02/29/24 15:35 Lorazepam 0.5 mg/ Syringe 0.5 mls @ 2 mls/min IV Q8H PRN; Protocol PRN Reason: Sedation/Anxiety Stop: 02/29/24 15:35 Influenza Virus Vaccine Quadrival (Do Not Administer Flu Vaccine) 1 each N/A PRN PRN PRN Reason: Notification Stop: 02/29/24 15:35 Insulin Aspart (Insulin Aspart Per Unit Charge) 0 units SC [facility] Stop: 02/29/24 16:29 Last Admin: 02/01/24 07:35 Dose: Not Given Lorazepam (Lorazepam 0.5 Mg Tab) 0.5 mg PO Q8H PRN PRN Reason: Sedation/Anxiety Stop: 02/29/24 15:35 Losartan Potassium (Losartan Potassium 50 Mg Tab) 100 mg PO QAM [facility] Stop: 03/01/24 08:59 Last Admin: 02/01/24 08:09 Dose: 100 mg Magnesium Hydroxide (Magnesium Hydroxide Susp 30 Ml Udc) 30 ml PO Q24H PRN PRN Reason: Constipation Stop: 02/29/24 15:35 Last Admin: 02/01/24 08:11 Dose: 30 ml Metoclopramide HCl (Metoclopramide Hcl Inj 5 Mg/Ml 2 Ml Vial) 10 mg IV Q6H PRN PRN Reason: Nausea &/or Vomiting Stop: 02/29/24 15:35 Miscellaneous Information (Pharmacy Glycemic Mgmt Consult) 1 each N/A UD PRN PRN Reason: Consult Stop: 02/29/24 15:35 Naloxone HCl (Naloxone Hcl 0.4 Mg/1 Ml Vial/Carp) 0.1 mg IV Q5M PRN PRN Reason: Oversedation/Resp depression Stop: 02/29/24 15:35 Ondansetron HCl (Ondansetron Inj 2 Mg/Ml 2 Ml Vial) 4 mg IV Q6H PRN PRN Reason: Nausea &/or Vomiting Stop: 02/29/24 15:35 Ondansetron HCl (Ondansetron 4 Mg Od Tab) 4 mg PO Q6H PRN PRN Reason: Nausea Stop: 02/29/24 15:35 Pneumococcal Polyvalent Vaccine (Do Not Administer Pneumococcal Vaccine) 1 each N/A PRN PRN PRN Reason: Notification Stop: 02/29/24 15:35 Senna/Docusate Sodium (Docusate Sodium/Senna 50/8.6mg Tab) 2 tab PO HS [facility] Stop: 02/29/24 20:59 Last Admin: 01/31/24 21:10 Dose: Not Given Sodium Biphosphate/Sodium Phosphate (Sod Phosphate/Sod Biphosphate Enema 132 Ml Btl) 132 ml [place] ONE PRN PRN Reason: Constipation Stop: 02/29/24 15:35 Tramadol HCl (Tramadol Hcl 50 Mg Tablet) 50 - 100 mg PO Q4H PRN PRN Reason: Moderate-Severe pain & Pre PT Stop: 02/29/24 15:35 Last Admin: 02/01/24 04:25 Dose: 50 mg Vitamin D (Cholecalciferol 25 Mcg (1000 Units) Tab) 25 mcg PO QAM [facility] Stop: 03/01/24 08:59 Last Admin: 02/01/24 08:09 Dose: 25 mcg (5) Hypertension Hypertension type: unspecified Qualified Code(s): I10 - Essential (primary) hypertension (6) Hyperlipidemia Hyperlipidemia type: unspecified Qualified Code(s): E78.5 - Hyperlipidemia, unspecified
== END 2024-02-01 11:35 | disposition home or self-care (01) | DRG 454 ==
LOC: ASU 10:01 → 3E 13:47
DX: Z88.5 Allergy status to narcotic agent; M10.9 Gout, unspecified; Z88.8 Allergy status to other drugs, medicaments and biological substances; M48.062 Spinal stenosis, lumbar region with neurogenic claudication; D62 Acute posthemorrhagic anemia; Z79.84 Long term (current) use of oral hypoglycemic drugs; I10 Essential (primary) hypertension; R73.03 Prediabetes; Z88.1 Allergy status to other antibiotic agents; J30.9 Allergic rhinitis, unspecified; Z79.899 Other long term (current) drug therapy; E78.5 Hyperlipidemia, unspecified; M54.16 Radiculopathy, lumbar region